=== PATIENT | male | born 1950 | race Caucasian/White ===

== ENCOUNTER 2016-09-25 14:11 | Emergency (ER) | payer OTHER, MEDICARE ==
[2016-09-25 16:27] LABS: BASOPHILS 0.5 % (0-2); EOSINOPHILS 6.9 % (0-7); HEMOGLOBIN 9.2 g/dL (13.5-17.5); IMMATURE GRANULOCYTES 0.2 % (0-5); LYMPHOCYTES 21.1 % (15-50); MCH 29.4 pg (26.0-34.0); MCHC 30.7 g/dL (31.0-37.0); MCV 95.8 fL (80.0-100.0); MEAN PLATELET VOLUME 12.1 fL (7.4-10.4); MONOCYTES 13.6 % (2-11); NEUTROPHILS 57.7 % (40-80); RBC 3.13 10x6/uL (4.20-6.10); RDW 16.8 % (11.5-14.5); WBC 9.2 10x3/uL (4.8-10.8)
[2016-09-25 16:28] LABS: PLATELET COUNT 258 10x3/uL (130-400)
[2016-09-25 17:27] LABS: ANION GAP 8.5 mmol/L (8-16); BILIRUBIN - TOTAL 0.62 mg/dL (0.2-1.3); CALCIUM 9.3 mg/dL (8.5-10.1); CARBON DIOXIDE 27.9 mmol/L (21.0-32.0); CREATININE - SERUM 1.3 mg/dL (0.6-1.3); POTASSIUM - SERUM 4.4 mmol/L (3.5-5.1); PROTEIN - SERUM 6.5 g/dL (6.4-8.2)
[2016-09-25 17:31] LABS: TROPONIN-I 0.034 ng/mL (0.000-0.060)
== END 2016-09-25 18:05 | disposition home or self-care (01) ==
LOC: D.ER 14:11
PROVIDERS: Nurse Practitioner Family
DX: R00.1 Bradycardia, unspecified (principal); S00.93XA Contusion of unspecified part of head, initial encounter; W06.XXXA Fall from bed, initial encounter; Y93.89 Activity, other specified; Y92.89 Other specified places as the place of occurrence of the external cause; F31.89 Other bipolar disorder; E11.9 Type 2 diabetes mellitus without complications

== ENCOUNTER 2016-12-03 00:30 | Inpatient (IN) | payer OTHER, MEDICARE ==
[2016-12-03] VITALS (14 sets, daily range): BP systolic 127–170; BP diastolic 63–86; BMI 29.9; BMI 29.8
[~2016-12-03] VITALS: Ht 182.9 cm; Wt 125.9 kg
--- NOTE | ~2016-12-03 | HEMODYNAMI ---
PATIENT:TYLOR PARKER MEDICAL RECORD: [id number] : 46 LOCATION:[facility] D.2310 [facility]# [id number] ADMISSION DATE: 12/03/16 Generatedon:12/13/201613:20 Patient name: TYLOR PARKER Patient #: [id number] SSN: : [id number] Date of study: 12/13/2016 Page: Of Hemodynamic Procedure Report Patient Data Patient Demographics Procedure consent was obtained First Name: TYLOR Gender: Male Last Name: KEITH : 1950 Patient #: [id number] Age: 66 year(s) Race: Unknown Additional ID: [id number] Contact details [address]: [address] [place] [address] State: [place] City: [place] Zip code: [address] Past Medical History Allergies: No known allergies Admission Admission Data Admission Date: 12/03/2016 Admission Time: 2:43 Room #: D.2310 Lab Results Lab Result Date: 12/13/2016 Lab Result Time: 0:00 Biochemistry Name Units Result Min Max BUN mg/dl 46 --(----)-* 7 18 Creatinine mg/dl 0.9 --(-*--)-- 0.6 1.3 CBC Name Units Result Min Max Hemoglobin g/dl 10.1 *-(----)-- 13.5 17.5 Coagulation Name Units Result Min Max INR units 1.24 --(----)*- 0.85 1.17 PT sec 15.5 --(----)*- 11.6 15 Procedure Procedure Types Cath Procedure Diagnostic Procedure LHC LHC w/Coronaries w/Grafts PCI Procedure Coronary Stent Initial Miscellaneous Procedures Moderate Sedation up to 30 minutes Procedure Description Procedure Date Procedure Date: 12/13/2016 Procedure Start Time: 12:48 Procedure End Time: 13:19 Procedure Staff Name Function Anton Haynes MD Performing Physician Reba Gaston RT Scrub Yan Burgos RN Nurse Breezy Hernandez RT Monitor John Salmeron RT Head Pumper Procedure Data Cath Procedure Fluoroscopy Diagnostic fluoroscopy Total fluoroscopy Time: 8.8 time: 8.8 min min Diagnostic fluoroscopy Total fluoroscopy dose: 654 dose: 654 mGy mGy Contrast Material Contrast Material Type Amount (ml) Isovue 300 156 Entry Location Entry Primary Successful Side Size Upsize Upsize Entry Closure Succes sful Closure Location (Fr) 1 (Fr) 2 (Fr) Remarks Device Remarks Femoral Right 5 Fr 6 Fr Exoseal artery Short Diagnostic catheters Device Type Used For End Catheter Placement Cordis 5Fr Pigtail LV Angiography Catheter (MP) Diagnostic Infinity 5Fr Left Coronary JL 5 catheter Angiography Cordis 5Fr 3DRC Catheter Right Coronary (MP) Angiography Diagnostic Infinity 5Fr SVG Angiography AR 2 MOD catheter Procedure Complications No complications Procedure Medications Medication Administration Route Dosage Oxygen Lidocaine 2% added to field 20 Heparin Flush Bag added to field 2 bags (1000units/500ml NS) 0.9% NaCl I.V. 75 ml/hr Diprivan 1% I.V. 38 mcg/kg/min (Propofol) Heparin Bolus I.V. 4000 units Integrilin (Bolus I.V. 8.5 ml 2mg/ml) Plavix 600 mg Hemodynamics Rest HGB: 10.1 (g/dl) Heart Rate: 62 (bpm) Snapshots Pre Cath Intra NCS Post Cath Vital Signs Time Heart Resp SPO2 NIBP (mmHg) Rhythm Pain Sedation Rate (ipm) (%) Status Level (bpm) 12:35:57 58 12 100 133/70(107) NSR 0 (11) 3(A) , No pain 12:40:13 62 12 100 125/70(101) NSR 0 (11) 3(A) , No pain 12:44:31 56 12 100 113/63(90) NSR 0 (11) 3(A) , No pain 12:48:47 62 11 100 130/71(105) NSR 0 (11) 3(A) , No pain 12:53:07 61 12 100 132/73(102) NSR 0 (11) 3(A) , No pain 12:57:28 63 11 100 134/69(111) NSR 0 (11) 3(A) , No pain 13:01:50 56 12 100 122/63(104) NSR 0 (11) 3(A) , No pain 13:06:10 62 11 98 119/60(86) NSR 0 (11) 3(A) , No pain 13:10:28 58 11 98 120/68(93) NSR 0 (11) 3(A) , No pain 13:14:44 56 12 99 124/69(101) NSR 0 (11) 3(A) , No pain 13:19:06 57 13 98 124/64(100) NSR 0 (11) 3(A) , No pain Medications Time Medication Route Dose Verified Delivered Reason Notes Effectiveness by by 12:39:42 Oxygen ventilator intubated Anton Heredia unresponsive per RT Dallas Burgos RN 12:39:50 Lidocaine 2% added to 20ml vial Anton Anton used for field Dallas Haynes MD procedure 12:39:56 Heparin Flush added to 2 bags Anton Walton used for Bag field Dallas Haynes MD procedure (1000units/500ml NS) 12:40:06 0.9% NaCl I.V. 75 ml/hr Anton Heredia Per physician Dallas Burgos RN 12:40:46 Diprivan 1% I.V. 38 Anton Heredia for sedation (Propofol) mcg/kg/min Dallas Burgos RN 12:58:18 Heparin Bolus I.V. 4000 units Anton Heredia for verified Dallas Burgos RN anticoagulation with dr haynes 13:00:29 Integrilin I.V. 8.5 ml Anton Heredia for wasted (Bolus 2mg/ml) Dallas Burgos RN antiplatelet 1.5 ml therapy of vial 13:17:40 Plavix via ngtube 600 mg Anton Heredia for Dallas Burgos RN antiplatelet therapy Procedure Log Time Note 11:53:59 ACC Patient presents with Unstable Angina CCS Anginal Class 3--Marked limitation of physical activity, angina occurs with ordinary activity.. 11:54:01 Diagnostic Cath status Urgent 11:54:21 Breezy Hernandez RT(R) sent for patient. Start room use. 11:54:22 Time tracking: Regular hours 11:54:27 Plan of Care:Hemodynamics will remain stable., Cardiac rhythm will remain stable., Comfort level will be maintained., Respiratory function will remain adequate., Patient/ family verbilizes understanding of procedure., Procedure tolerated without complication., Recovers from procedure without complications.. 12:34:37 Patient received from ICU to CCL 3 Alert and oriented. Tansferred to table in Supine position. 12:34:39 Warm blankets applied, and kody hugger turned on for patient comfort. 12:34:39 Correct patient and procedure confirmed by team. 12:34:40 Signed procedure consent form obtained from spouse. 12:34:41 ECG and BP/O2 sat monitors applied to patient. 12:34:41 Vital chart was started 12:34:42 Baseline sample Acquired. 12:34:45 Rhythm: sinus rhythm 12:34:46 Full Disclosure recording started 12:34:50 H&P Date Dictated: 12/13/2016 Within 30 days and on chart.. 12:34:51 Pre-procedure instructions explained to patient. 12:34:51 Pre-op teaching completed and patient verbalized understanding. 12:34:54 Family in waiting room. 12:34:55 Patient NPO since Midnight. 12:35:09 Patient allergic to No known allergies 12:35:15 Is the patient allergic to Iodine/contrast media? No. 12:35:36 Is patient on blood thinner?No 12:35:39 Patient diabetic? Unknown. 12:35:41 ----Pre-sedation anethsthesia assessment.---- 12:36:23 PRE SEDATION ANETHSTHESIA ASSESSMENT PT IS ON A VENT AND SEDATED 12:36:27 Pre procedure: right dorsailis pedis pulse 1+ Palpable, but thready & weak; easily obliterated 12:36:37 Patient pain scale 0/10 UNKNOWN. 12:36:45 IV patent on arrival in Lt subclavian with 0.9% NaCl at 10ml/hr. 12:39:33 Lab Result : BUN 46 mg/dl 12:39:33 Lab Result : Creatinine 0.9 mg/dl 12:39:33 Lab Result : Hemoglobin 10.1 g/dl 12:39:33 Lab Result : PT 15.5 sec 12:39:33 Lab Result : INR 1.24 units 12:39:36 Lab results completed and on chart. 12:39:39 Right groin area was prepped with chlora-prep and draped in sterile fashion 12:39:40 Alarms reviewed by R. N. 12:39:40 Sharps counted by scrub and verified by R.N. 12:39:42 Oxygen intubated ventilator per RT was administered by Yan Burgos RN; unresponsive; 12:39:50 Lidocaine 2% 20ml vial added to field was administered by Anton Haynes MD; used for procedure; 12:39:56 Heparin Flush Bag (1000units/500ml NS) 2 bags added to field was administered by Anton Haynes MD; used for procedure; 12:40:06 0.9% NaCl 75 ml/hr I.V. was administered by Yan Burgos RN; Per physician; 12:40:46 Diprivan 1% (Propofol) 38 mcg/kg/min I.V. was administered by Yan Burgos RN; for sedation; 12:40:51 Physician paged 12:47:07 --------ALL STOP TIME OUT------ 12:47:08 Final Timeout: patient, procedure, and site verified with staff and physician. All members of the team are in agreement. 12:47:09 Right groin site verified by team. 12:47:20 Physical assessment completed. ASA score P 3 - A patient with severe systemic disease as per Anton Haynes MD. 12:47:41 Sedation plan: IV Moderate Sedation Propofol 12:47:50 PT IS SEDATED 12:47:55 Use device set Femoral Dx 12:47:56 Acist Syringe opened to sterile field. 12:47:56 Bag Decanter opened to sterile field. 12:47:56 Medline Cath Pack opened to sterile field. 12:47:57 Terumo 5Fr [place] Sheath opened to sterile field. 12:47:57 St Kade 260cm J .035 wire opened to sterile field. 12:47:58 Acist Hand Control opened to sterile field. 12:47:59 Acist Manifold opened to sterile field. 12:47:59 Diagnostic Infinity 5Fr Multipack catheter opened to sterile field. 12:47:59 Tegaderm 4 x 4 opened to sterile field. 12:48:19 Procedure started. 12:48:23 Local anesthetic to right femoral artery with Lidocaine 2% by Anton Haynes MD.INITIAL ACCESS ONLY 12:48:34 A 5 Fr sheath was inserted into the Right Femoral artery 12:48:37 Zero performed for pressure channel P1 12:48:54 A Cordis 5Fr Pigtail Catheter (MP) was advanced over the wire and used for LV Angiography. 12:48:57 LV angiography performed. 12:48:58 LV gram done using UGARTE 12:49:03 EF : 30 % 12:49:04 Catheter removed. 12:49:12 A Diagnostic Infinity 5Fr JL 5 catheter was advanced over the wire and used for Left Coronary Angiography. 12:49:15 LCA angiography performed. 12:49:16 Catheter removed. 12:49:47 A Cordis 5Fr 3DRC Catheter (MP) was advanced over the wire and used for Right Coronary Angiography. 12:49:54 BERGERON to LAD angiography performed. 12:50:13 [place] BasixCompak Inflation Kit opened to sterile field. 12:50:13 Cordero Broad Instituteisper J 300cm 0.014 guide wire opened to sterile field. 12:50:13 Terumo 6Fr [place] Sheath opened to sterile field. 12:53:17 RCA angiography performed. 12:53:18 Catheter removed. 12:53:43 Sheath upsized to a 6 Fr Short. 12:53:50 A Diagnostic Infinity 5Fr AR 2 MOD catheter was advanced over the wire and used for SVG Angiography. 12:54:24 SVG to RCA angiography performed. 12:55:31 SVG to Circ angiography performed. 12:56:16 Catheter removed. 12:56:26 Cordis 6FR XBLAD 3.5 guide catheter opened to sterile field. 12:58:18 Heparin Bolus 4000 units I.V. was administered by Yan Burgos RN; for anticoagulation; verified with dr haynes 12:58:25 6 Fr XBLAD 3.5 guide catheter was inserted over the wire 12:58:41 WHISPER wire advanced. 12:58:48 Study PCI Site: Marshall mLAD has 90% stenosis. 12:58:53 Study PCI Site: [place] Diag1 has 90% stenosis. 13:00:29 Integrilin (Bolus 2mg/ml) 8.5 ml I.V. was administered by Yan Burgos RN; for antiplatelet therapy; wasted 1.5 ml of vial 13:03:07 Inflation number: 5 A [place]ade [place] 2.0 X 20 balloon was prepped and advanced across the 1st Diag, then inflated to 13 DWIGHT for 0:12 (min:sec). 13:03:33 Inflation number: 4 The Hildebran Sci [place] 2.0 X 20 balloon was reinflated across the 1st Diag, to 17 DWIGHT for 0:18 (min:sec). 13:05:27 Inflation number: 3 The Hildebran Sci [place] 2.0 X 20 balloon was reinflated across the 1st Diag, to 17 DWIGHT for 0:30 (min:sec). 13:05:30 Balloon removed over the wire. 13:06:34 Inflation Number: 2 A Eugene OTW 2.25 x 18 stent was prepped and advanced across the 1st Diag. The stent was deployed at 13 DWIGHT for 0:10 (min:sec). 13:07:25 Inflation number: 1 The stent balloon was then re-inflated across the 1st Diag to 0 DWIGHT for 0:00 (min:sec). 13:08:18 Stent catheter was removed intact over wire. 13:08:19 Wire removed. 13:08:19 Guide catheter removed. 13:08:27 Contrast amount:Isovue 300 156ml. 13:08:34 Sheath removed intact; hemostasis achieved with Exoseal to the Right Femoral artery. 13:08:36 Procedure ended.(Physican Out) 13:09:54 Fluoroscopy time 08.80 minutes. 13:10:02 Fluoroscopy dose: 654 mGy 13:10:02 Flurop Dose total: 654 13:10:03 Sharps counted by scrub and verified by R.N. 13:10:04 Insertion/operative site no bleeding no hematoma. 13:10:07 Post-op/insertion site Right Femoral artery dressed using a 4 x 4 and Tegaderm. 13:10:10 Post right femoral artery:stable 13:10:11 Post Procedure Pulses reassessed and unchanged 13:10:13 Post procedure: right dorsailis pedis pulse 1+ Palpable, but thready & weak; easily obliterated. 13:10:16 Post procedure rhythm: sinus rhythm 13:10:18 Post procedure instruction explained to patient.Patient verbalizes understanding. 13:10:57 Procedure type changed to Cath procedure, Diagnostic procedure, LHC, LHC w/Coronaries w/Grafts, PCI procedure, Coronary Stent Initial, Miscellaneous Procedures, Moderate Sedation up to 30 minutes 13:11:17 Cordis 6Fr Exoseal opened to sterile field. 13:11:22 Procedure and supply charges have been captured, reviewed, submitted and are correct. 13:16:30 Procedure Complication : No complications 13:17:40 Plavix 600 mg via ngtube was administered by Yan Burgos RN; for antiplatelet therapy; 13:19:39 Vital chart was stopped 13:19:44 See physician's report for complete and final results. 13:19:54 Report given to ICU. 13:19:57 Patient transfered to ICU with Bed. 13:19:59 Procedure ended. 13:19:59 Full Disclosure recording stopped 13:20:12 ACC-PCI Only Patient was given prescriptions, or instructed by Anton Haynes MD to start/continue the following medications upon discharge: Plavix 13:20:14 End room use (Document Last) Intervention Summary Intervention Notes Time ActionType Lesion and Equipment Action# Pressure Duration Attributes Used 13:03:07 Inflate 1st Diag Hildebran 5 13 00:12 balloon Sci [place] 2.0 X 20 balloon 13:03:33 Reinflate 1st Diag Hildebran 4 17 00:18 balloon Sci [place] 2.0 X 20 balloon 13:05:27 Reinflate 1st Diag Hildebran 3 17 00:30 balloon Sci [place] 2.0 X 20 balloon 13:06:34 Place stent 1st Diag Rembrandt OTW 2 13 00:10 2.25 x 18 stent 13:07:25 Reinflate 1st Diag Eugene OTW 1 0 00:00 stent 2.25 x 18 balloon stent Device Usage Item Name Manufacture Quantity Catalog Number Hospital Part Current Mini mal Lot# / Charge Number Stock Stock Serial# Code Acist Acist 1 16828 027554 144448 155826 20 Syringe Medical Systems Inc Bag Microtek 1 2002S 275586 28482 268191 5 INetU Managed Hosting. Medline Cardinal 1 [id number] 651662 65405 447216 5 NanoConversion Technologies Terumo 5Fr Terumo 1 [id number] 278422 237591 603325 [address] Kade 1 318584 689068 081975 726864 30 260cm J .035 wire Acist Hand Acist 1 34764 120371 051445 560526 5 Crushpath [employer] Inc Acist Acist 1 10064 907213 309084 296456 5 Data TV Networks Medical Systems Inc Diagnostic Cardinal 1 [id number] 462602 05555 300025 30 Infinity Health 5Fr Multipack catheter Tegaderm 4 3M 1 1626W 250581 725670 742257 5 x 4 Cordis 5Fr Cardinal 1 712269 5 Pigtail Health Catheter (MP) Diagnostic Cardinal 1 [id number] 598616 374268 668735 5 Infinity Health 5Fr JL 5 catheter Cordis 5Fr Cardinal 1 266024 5 3DRC Health Catheter (MP) Merit Merit 1 BF1524 266487 872614 720614 15 BasixVolo Broadband Medical Inflation Kit Cordero Cordero 1 [id number] 470669 798892 026359 5 Whisper J Vascular 300cm 0.014 guide wire Terumo 6Fr Terumo 1 [id number] 288043 368729 535710 40 [place] Sheath Diagnostic Cardinal 1 548215Q 999748 077387 289213 20 Infinity Health 5Fr AR 2 MOD catheter Cordis 6FR Cardinal 1 13362330 349031 445701 691061 10 XBLAD 3.5 Health guide catheter Hildebran Sci Hildebran 1 [id number] 211459 057773 608634 1 [id number] The ADEX 2.0 X 20 balloon Rembrandt OTW Medtronic 1 [id number] 597931 17192 723255 5 [id number] 2.25 x 18 stent Cordis 6Fr Cardinal 1 EX600 876187 575587 835347 10 [facility] Basis Science Signature Audit [place] Stage Time Signature Unsigned Intra-Procedure 12/13/2016 Breezy Hernandez 1:20:40 PM RT(R) Signatures Monitor : Breezy Hernandez RT Signature : Date : Time : [facility] [address] [place] [address]
[~2016-12-03 00:30] MED LIST: ASPIRIN81 MG PO; COZAAR100 MG PO; KLONOPIN1 MG; LITHIUM CARBON300 MG PO; PLAVIX75 MG PO
[2016-12-03 01:03] LABS: BASOPHILS 0.4 % (0-2); EOSINOPHILS 2.5 % (0-7); HEMATOCRIT 26.2 % (42.0-54.0); IMMATURE GRANULOCYTES 0.3 % (0-5); LYMPHOCYTES 8.9 % (15-50); MCH 28.2 pg (26.0-34.0); MCHC 30.5 g/dL (31.0-37.0); MCV 92.3 fL (80.0-100.0); MEAN PLATELET VOLUME 11.5 fL (7.4-10.4); MONOCYTES 7.7 % (2-11); NEUTROPHILS 80.2 % (40-80); PLATELET COUNT 288 10x3/uL (130-400); RBC 2.84 10x6/uL (4.20-6.10); RDW 17.4 % (11.5-14.5); WBC 10.4 10x3/uL (4.8-10.8)
[2016-12-03 01:15] LABS: ALBUMIN 3.4 g/dL (3.4-5.0); ALKALINE PHOSPHATASE 106 U/L (46-116); ALT (SGPT) 20 U/L (10-68); CALC OSMOLALITY 281 mosm/kg (275-300); CALCIUM 9.4 mg/dL (8.5-10.1); CARBON DIOXIDE 22.1 mmol/L (21.0-32.0); CHLORIDE - SERUM 106 mmol/L (98-107); CREATININE - SERUM 1.1 mg/dL (0.6-1.3); GLUCOSE 115 mg/dL (74-106); POTASSIUM - SERUM 4.1 mmol/L (3.5-5.1); PROTEIN - SERUM 7.3 g/dL (6.4-8.2); SODIUM 140 mmol/L (136-145); UREA NITROGEN 18 mg/dL (7-18); eGFR NON AFRICAN AMERICAN 71 mL/min (90-120)
[2016-12-03 01:26] LABS: CHOL - HDL RATIO 3.1 ratio (2.3-4.9); CHOLESTEROL, TOTAL 206 mg/dL (0-200); CKMB 1.6 U/L (0.0-3.6); CREATINE KINASE 113 UL (21-232); HDL CHOLESTEROL 67 mg/dL (32-96); LDL CHOLESTEROL 116 mg/dL (0-100); LDL-HDL RATIO 1.7 ratio (1.5-3.5); PRO BNP 601 pg/mL (0-125); TRIGLYCERIDE 115 mg/dL (30-200); TROPONIN-I < 0.017 ng/mL (0.000-0.060)
[2016-12-03 02:25] LABS: APPEARANCE CLEAR (CLEAR); BILIRUBIN NEGATIVE (NEGATIVE); COLOR YELLOW (YELLOW); GLUCOSE NEGATIVE (NEGATIVE); KETONE NEGATIVE (NEGATIVE); LEUKOCYTE ESTERASE NEGATIVE (NEGATIVE); NITRITE NEGATIVE (NEGATIVE); PROTEIN NEGATIVE (NEGATIVE); SPECIFIC GRAVITY 1.015 (1.005-1.020); UROBILINOGEN NORMAL (NORMAL)
--- NOTE | 2016-12-03 03:19 | NUR ---
REPORT RECEIVED FROM JULIETH HOUSER
[2016-12-03 03:24] LABS: TROPONIN-I 0.134 ng/mL (0.000-0.060)
[2016-12-03] MEDS ORDERED: NITROSTAT0.4 MG SL (03:31)
--- NOTE | 2016-12-03 03:36 | NUR ---
ARRIVED TO FLOOR VIA WHEELCHAIR, ACCOMPANIED BY HOSPITAL STAFF. ORIENTED TO UNIT AND PLACED ON TELEMETRY. CALL LIGHT IN REACH. SEE NURSE ASSESSMENT. WILL CONTINUE TO MONITOR.
[2016-12-03] MEDS ORDERED: TRAZODONE HCL300 MG PO (05:01)
[2016-12-03] MEDS ORDERED: MELATONIN 3 MG1 TAB PO (05:11)
--- NOTE | 2016-12-03 07:38 | NUR ---
ASSESSMENT DONE. DENIES NEEDS.
--- NOTE | 2016-12-03 07:58 | NUR ---
RESP UL ON . STEPHANY NEEDS AT THIS TIME. CALL LIGHT IN REACH. WILL MONITOR.
[2016-12-03 09:31] LABS: BASOPHILS 0.4 % (0-2); EOSINOPHILS 1.7 % (0-7); HEMATOCRIT 27.9 % (42.0-54.0); HEMOGLOBIN 8.4 g/dL (13.5-17.5); IMMATURE GRANULOCYTES 0.2 % (0-5); LYMPHOCYTES 11.5 % (15-50); MCH 28.2 pg (26.0-34.0); MCHC 30.1 g/dL (31.0-37.0); MCV 93.6 fL (80.0-100.0); MEAN PLATELET VOLUME 11.8 fL (7.4-10.4); MONOCYTES 8.4 % (2-11); NEUTROPHILS 77.8 % (40-80); PLATELET COUNT 284 10x3/uL (130-400); RBC 2.98 10x6/uL (4.20-6.10); RDW 17.6 % (11.5-14.5); WBC 12.2 10x3/uL (4.8-10.8)
[2016-12-03 10:00] LABS: CALC OSMOLALITY 283 mosm/kg (275-300); CALCIUM 9.4 mg/dL (8.5-10.1); CARBON DIOXIDE 25.1 mmol/L (21.0-32.0); CHLORIDE - SERUM 105 mmol/L (98-107); CREATININE - SERUM 1.2 mg/dL (0.6-1.3); GLUCOSE 136 mg/dL (74-106); POTASSIUM - SERUM 4.4 mmol/L (3.5-5.1); SODIUM 140 mmol/L (136-145); UREA NITROGEN 20 mg/dL (7-18); eGFR NON AFRICAN AMERICAN 64 mL/min (90-120)
[2016-12-03 10:01] LABS: CREATINE KINASE 324 UL (21-232)
[2016-12-03 10:05] LABS: CKMB 45.1 U/L (0.0-3.6)
[2016-12-03 15:47] LABS: CREATINE KINASE 375 UL (21-232)
[2016-12-03 15:48] LABS: TROPONIN-I 8.427 ng/mL (0.000-0.060)
[2016-12-03 15:55] LABS: CKMB 51.6 U/L (0.0-3.6)
--- NOTE | 2016-12-03 18:38 | NUR ---
WITHOUT CHANGES NOTED AT THIS TIME.
--- NOTE | 2016-12-03 19:35 | NUR ---
UPON ENTERING ROOM, PT IS C/O SUBSTERNAL CHEST PAIN, RATES @ 10/10 ON PAIN SCALE. PT IS EXTREMELY DIAPHORETIC AND DUSKY. O2 SATS 65% ON 5LPM NC. RAPID RESPONSE CALLED AT 1940. DR HICKMAN ON THE FLOOR AND NOTIFIED OF PT'S CHANGE INCONDITION. ORDER RECEIVED TO TRANSFER PT TO CVICU @ 1950. PT TRANSFER TO CVICU VIA BED AND REPORT GIVEN TO MIK PERRY AT THE BEDSIDE. 2009 - SPOKE WITH LARA RENEE, PT'S SISTER. EXPLAINED PT'S CHANGE IN CONDITION AND THE TRANSFER INTO CVICU. SISTER WAS VERY APPRECIATIVE AND REQUESTED THAT STAFF CALL HER WITH ANY FURTHER CHANGES. REASSURED HER THAT WE WOULD CALL HER WITH ANY FURTHER CHANGE INCONDITION. SPOKE WITH MIK EMERSON IN ICU AND UPDATED THAT I HAD SPOKE WITH FAMILY.
[2016-12-03 20:25] LABS: BASOPHILS 0.2 % (0-2); EOSINOPHILS 0.2 % (0-7); HEMATOCRIT 34.9 % (42.0-54.0); HEMOGLOBIN 10.9 g/dL (13.5-17.5); IMMATURE GRANULOCYTES 0.4 % (0-5); MCH 28.9 pg (26.0-34.0); MCHC 31.2 g/dL (31.0-37.0); MCV 92.6 fL (80.0-100.0); MEAN PLATELET VOLUME 12.3 fL (7.4-10.4); NEUTROPHILS 87.2 % (40-80); PLATELET COUNT 282 10x3/uL (130-400); RBC 3.77 10x6/uL (4.20-6.10); RDW 17.6 % (11.5-14.5); WBC 19.6 10x3/uL (4.8-10.8)
[2016-12-03 21:01] LABS: CKMB 32.6 U/L (0.0-3.6); CREATINE KINASE 292 UL (21-232)
[2016-12-03 21:02] LABS: TROPONIN-I 2.822 ng/mL (0.000-0.060)
--- NOTE | 2016-12-03 21:08 | NUR ---
1999 PT ARRIVED TO UNIT VIA BED WITH HOSPITAL STAFF. DR HICKMAN IN ROOM, GAVE ORDERS FOR 80MG LASIX STAT, NITRO DRIP STAT @ 5 AND TITRATE UP TO 10. PT ARRIVED WITH SPO2 AT 84% ON 100% NRB. PPP. CAP REFIL <3 SECONDS. S1S2 AUSCULTATED. DENIES PAIN/NEEDS ATT. BS ACTIVE X4. LUNG SOUNDS WET-CRACKLES THROUGHOUT-SHALLOW. DR HICKMAN WANTS ABG'S AT 2100, RT NOTIFIED. ALL OTHER VSS, WILL CPOC AND MONITOR CLOSELY IN ICU.
--- NOTE | 2016-12-03 21:12 | NUR ---
TRIED 3 TIMES FOR NEW IV OLD IV IN LEFT WRIST WOULD NOT FLUSH, WAS ABLE TO GET NEW IV IN LEFT AC WITH 22G, STARTED NITRO DRIP AND GAVE LASIX PER DR HICKMAN ORDERS. GAVE PM MEDS PER JUL AND PT TOLERATED WELL. DENIES ANY OTHER PAIN/NEEDS ATT. VSS, SPO2 @ 96% ON 100% NRB. WILL CONTINUE CPOC.
--- NOTE | 2016-12-03 21:31 | NUR ---
[address]19 CALL[address] RESULTS FOR DR HICKMAN, RECIEVED MORE ORDERS, WILL CPOC.
--- NOTE | 2016-12-03 22:27 | NUR ---
PAGED AND TALKED TO DR HICKMAN, NOTIFIED HIM PT HAS NOT VOIDED, THAT PT SLEEPING AND IS COMFORTABLE. HE SAID WE WILL "JUST STICK IT OUT". PT RESTING COMFORTABLEY ATT, VSS. WILL CPOC.
--- NOTE | 2016-12-03 23:00 | NUR ---
REASSESSMENT COMPLETE, PLEASE SEE FLOW SHEETS FOR DETAILS. RESTING, AND WOKE EASILY. DENIES ANY PAIN/NEEDS ATT. STATES HE IS "FEELING MUCH BETTER". HE DID URINATE IN URINAL, APPROX 400ML AT 2200. VSS AT. WILL CPOC.
[2016-12-04] VITALS (31 sets, daily range): BP systolic 100–141; BP diastolic 50–74
--- NOTE | 2016-12-04 01:00 | NUR ---
RESTING COMFORTABLY, VSS, BED LOW AND LOCKED, CALL LIGHT IN REACH. WILL CPOC.
--- NOTE | 2016-12-04 02:50 | NUR ---
C/O PAIN, WILL GIVE PAIN MEDS PER ORDERS.
[2016-12-04 03:08] LABS: BASOPHILS 0 % (0-2); EOSINOPHILS 0 % (0-7); HEMATOCRIT 37.1 % (42.0-54.0); HEMOGLOBIN 11.5 g/dL (13.5-17.5); IMMATURE GRANULOCYTES 0.5 % (0-5); LYMPHOCYTES 3.5 % (15-50); MCH 28.9 pg (26.0-34.0); MCV 93.2 fL (80.0-100.0); MEAN PLATELET VOLUME 11.9 fL (7.4-10.4); MONOCYTES 5.1 % (2-11); NEUTROPHILS 90.9 % (40-80); PLATELET COUNT 300 10x3/uL (130-400); RBC 3.98 10x6/uL (4.20-6.10); RDW 17.9 % (11.5-14.5); WBC 21.2 10x3/uL (4.8-10.8)
--- NOTE | 2016-12-04 03:23 | NUR ---
REASSESSMENT COMPLETE, PLEASE SEE FLOW SHEETS FOR DETAILS. RR LABORED, DYSPNEA NOTED, SOB, SHALLOW BREATHS, DIMINIGHED IN LLL, RLL, RML - CRACKLES AND RHALES THROUGHOUT. ORDERED STAT ABG'S, PT C/O CHEST AND BACK PAIN, PT STATES HE IS "NOT DOING TOO WELL", BUT ALSO STATES THAT MORPHINE HAS HELPED. S1S2 AUSCULTATED, NSR NOTED.
--- NOTE | 2016-12-04 03:29 | NUR ---
TAKED TO DR HICKMAN, INFORMED HIM OF PT STATUS, SUGGESTED BIPAP, HE WANTS DR LYLES CONSULTED AND NUMBERS RUN BY HIM AND GET HIS OPINION.
[2016-12-04 03:33] LABS: ALBUMIN 3.3 g/dL (3.4-5.0); ALKALINE PHOSPHATASE 115 U/L (46-116); ALT (SGPT) 24 U/L (10-68); BILIRUBIN - TOTAL 0.85 mg/dL (0.2-1.3); CALCIUM 9.2 mg/dL (8.5-10.1); CHLORIDE - SERUM 107 mmol/L (98-107); CKMB 180.2 U/L (0.0-3.6); GLUCOSE 178 mg/dL (74-106); POTASSIUM - SERUM 4.7 mmol/L (3.5-5.1); PROTEIN - SERUM 7.2 g/dL (6.4-8.2); SODIUM 142 mmol/L (136-145)
[2016-12-04 03:34] LABS: CALC OSMOLALITY 291 mosm/kg (275-300); CREATININE - SERUM 1.6 mg/dL (0.6-1.3); UREA NITROGEN 27 mg/dL (7-18); eGFR NON AFRICAN AMERICAN 46 mL/min (90-120)
--- NOTE | 2016-12-04 03:34 | NUR ---
PAGED DR LYLES.
[2016-12-04 03:35] LABS: CREATINE KINASE 785 UL (21-232); TROPONIN-I 18.008 ng/mL (0.000-0.060)
--- NOTE | 2016-12-04 03:43 | NUR ---
SPOKE WITH DR LYLES, HE ORDERED 80MG LASIX, START BIPAP AND INTUBATE IF NECESSARY, AND GET A CXR.
--- NOTE | 2016-12-04 03:58 | NUR ---
BIPAP ON, WILL MONITOR TO ASSESS EFFECTIVENESS. RR ELEVATED. WILL CPOC.
--- NOTE | 2016-12-04 05:00 | NUR ---
STATUS IMPROVED WITH BIPAP. VSS ATT, BED LOW AND LOCKED, CALL LIGHT IN REACH. WILL CPOC.
--- NOTE | 2016-12-04 08:00 | NUR ---
18 FR DANIELLE CATH PLACED FOR ACCURATE I&O. IMMEDIATE DARK YELLOW URINE RETURN. PT THEN TURNED ON RIGHT SIDE TO SLEEP. BIPAP IN PLACE.
--- NOTE | 2016-12-04 13:24 | NUR ---
PLACED BACK ON BIPAP TO REST.
--- NOTE | 2016-12-04 14:46 | NUR ---
BREAK GIVEN FROM BIPAP. PLACED BACK ON OXYMIZER.
--- NOTE | 2016-12-04 16:16 | NUR ---
MIDLINE IV BEING PLACED PER MARILIA HOUSER.
--- NOTE | 2016-12-04 16:36 | NUR ---
DR. SINGH NOTIFIED OF MIDLINE CATH IN PLACE. DR. HICKMAN PAGED ABOUT NITRO DRIP.
--- NOTE | 2016-12-04 16:46 | NUR ---
DR. HICKMAN STATES NITRO MAY BE DC'D.
--- NOTE | 2016-12-04 19:15 | NUR ---
REPORT RECIVED, INITIAL ASSESSMENT COMPLETE, PLEASE SEE FLOW SHEETS FOR DETAILS. LUNG SOUNDS WITH CRACKLES/RHALES THROUGHOUT LOBES, SLIGHTLY DIMINISHED IN LOWER LOBES. ON BIPAP @ 80%, TOLERATES WELL WITH SPO2 @ 93%. S1S2 AUSCULTATED WITH NSR NOTED ON MONITOR. PPP. BS ACTIVE X4. PITTING EDEMA NOTED FROM LEFT FOREARM TO FINGER TIPS. D/C'D PIV FROM LEFT WRIST AND FROM LEFT A/C. WRAPPED ARM IN WARM BLANKET AND ELEVATED ON PILLOW. C/O BEING COLD, PROVIDED WARM BLANKET FOR BODY WELL. PUPILS EQUAL AND REACTIVE TO LIGHT. SIPS OF WATER GIVEN AND ORAL CARE PROVIDED, PATIENT WAS VERY HAPPY TO HAVE THIS DONE. DANIELLE IN PLACE AND DRAINING VIA GRAVITY TO CLOSED SYSTEM BAG ATTACHED TO BED AND OFF FLOOR, CLEAR YELLOW URINE NOTED. VSS ATT, BED LOW AND LOCKED, CALL LIGHT IN REACH. BED ALARM ON. WILL CPOC.
--- NOTE | 2016-12-04 21:00 | NUR ---
PROVIDED ORAL CARE, REWRAPPED ARM IN WARM TOWEL, PT ANXIOUS, WILL GIVE ATIVAN PER ORDERS. SIPS OF WATER PROVIDED. PT TOLERATED WELL. VSS ATT, BED LOW AND LOCKED, CALL LIGHT IN REACH. WILL CPOC.
--- NOTE | 2016-12-04 22:52 | NUR ---
REASSESSMENT COMPLETE, PLEASE SEE FLOW SHEETS FOR DETAILS. ORAL CARE PROVIDED, TOOK OFF BLANKETS PT STATED HE WAS HOT, UNWRAPPED LEFT ARM FOR BREAK FROM HEAT, SWELLING REDUCED BY SMALL AMOUNT. IV INFUSING NS @ KVO WITH ABX. VSS ATT, BIPAP ON AND RUNNING. BED LOW AND LOCKED, CALL LIGHT IN REACH. WILL CPOC.
--- NOTE | 2016-12-04 23:46 | NUR ---
PT WAS ANXIOUS AND SHAKING, GAVE ATIVAN PER ORDERS. MOVED UP IN BED. PROVIDED ORAL CARE AND SIPS OF WATER. WARM BLANKET PROVIDED. LIGHTS OUT. TOELRATED ACTIVITY WELL. VSS, BED LOW AND LOCKED, CALL LIGHT IN REACH. WILL CPOC.
[2016-12-05] VITALS (12 sets, daily range): BP systolic 107–150; BP diastolic 52–78
--- NOTE | 2016-12-05 01:30 | NUR ---
SLEEPING, VSS, BED LOW AND LOCKED, CALL LIGHT IN REACH. WILL CPOC.
--- NOTE | 2016-12-05 03:30 | NUR ---
REASSESSMENT COMPLETE, PLEASE SEE FLOW SHEETS FOR DETAILS. ORAL CARE PROVIDED. PT ANXIOUS, WILL GIVE ATIVAN PER ORDERS. SIPS OF WATER PROVIDED. DENIES ANY PAIN ATT. BED LOW AND LOCKED, CALL LIGHT IN REACH. VSS, WILL CPOC.
--- NOTE | 2016-12-05 05:15 | NUR ---
SLEEPING, VSS, BED LOW AND LOCKED, CALL LIGHT IN REACH. WILL CPOC.
[2016-12-05 05:27] LABS: BASOPHILS 0 % (0-2); EOSINOPHILS 0.4 % (0-7); IMMATURE GRANULOCYTES 0.4 % (0-5); LYMPHOCYTES 2.8 % (15-50); MCH 28.8 pg (26.0-34.0); MCHC 31.4 g/dL (31.0-37.0); MCV 91.6 fL (80.0-100.0); MEAN PLATELET VOLUME 12.4 fL (7.4-10.4); MONOCYTES 5.3 % (2-11); NEUTROPHILS 91.1 % (40-80); PLATELET COUNT 273 10x3/uL (130-400); RBC 3.23 10x6/uL (4.20-6.10); RDW 17.4 % (11.5-14.5); WBC 18.1 10x3/uL (4.8-10.8)
[2016-12-05 05:32] LABS: HEMATOCRIT 29.6 % (42.0-54.0); HEMOGLOBIN 9.3 g/dL (13.5-17.5)
[2016-12-05 05:38] LABS: ANION GAP 11.5 mmol/L (8-16); CALCIUM 8.7 mg/dL (8.5-10.1); CARBON DIOXIDE 26.7 mmol/L (21.0-32.0); CREATININE - SERUM 1.8 mg/dL (0.6-1.3); POTASSIUM - SERUM 4.2 mmol/L (3.5-5.1)
--- NOTE | 2016-12-05 06:02 | NUR ---
RECIEVED FULL BED BATH AND LINEN CHANGE, TOLERATED WELL. VSS, BED LOW AND LOCKED, CALL LIGHT IN REACH. WILL CPOC.
--- NOTE | 2016-12-05 06:15 | NUR ---
LAB RESULTS REVIEWED, PAGING FINANCE ATTORNEY CARDIO.
--- NOTE | 2016-12-05 06:22 | NUR ---
DR HICKMAN CALLED BACK, GAVE UPDATE, HE SAID HE WEOULD BE UP HERE SOON TO CHECK ON HIM.
--- NOTE | 2016-12-05 09:50 | NUR ---
ORAL CARE DONE. WATER PROVIDED. PLACED ON BIPAP.
--- NOTE | 2016-12-05 12:05 | NUR ---
FAMILY AT BEDSIDE.
[2016-12-05 13:04] LABS: TROPONIN-I 27.941 ng/mL (0.000-0.060)
[2016-12-05 13:30] LABS: BASOPHILS 0.1 % (0-2); EOSINOPHILS 0.9 % (0-7); HEMATOCRIT 29.9 % (42.0-54.0); HEMOGLOBIN 9.4 g/dL (13.5-17.5); IMMATURE GRANULOCYTES 0.3 % (0-5); LYMPHOCYTES 5.8 % (15-50); MCH 28.9 pg (26.0-34.0); MCHC 31.4 g/dL (31.0-37.0); MEAN PLATELET VOLUME 12.7 fL (7.4-10.4); MONOCYTES 5.2 % (2-11); NEUTROPHILS 87.7 % (40-80); PLATELET COUNT 262 10x3/uL (130-400); RBC 3.25 10x6/uL (4.20-6.10); RDW 17.8 % (11.5-14.5); WBC 15.8 10x3/uL (4.8-10.8)
--- NOTE | 2016-12-05 13:49 | NUR ---
PT ON VAPOTHERM AT 40L 100%. ORAL CARE AND WATER PROVIDED.
--- NOTE | 2016-12-05 14:25 | NUR ---
BACK ON BIPAP.
--- NOTE | 2016-12-05 19:00 | NUR ---
REPORT RECIEVED, INITIAL ASSESSMENT COMPLETE, PLEASE SEE FLOW SHEETS FOR DETAILS. ORAL CARE PROVIDED, SIPS OF WATER PROVIDED. DENIES ANY PAIN/NEEDS ATT. BED LOW AND LOCKED, CALL LIGHT IN REACH. VSS, WILL CPOC.
--- NOTE | 2016-12-05 21:00 | NUR ---
ORAL CARE AND SIPS OF WATER PROVIDED. VSS, BED LOW AND LOCKED, CALL LIGHT IN REACH. WILL CPOC.
--- NOTE | 2016-12-05 22:53 | NUR ---
ANXIOUS, TRYING TO GET OOB, GAVE ATIVAN PER ORDERS.
--- NOTE | 2016-12-05 23:00 | NUR ---
REASSESSMENT COMPLETE, PLEASE SEE FLOW SHEETS FOR DETAILS. ORAL CARE PROVIDED. BED LOW AND LOCKED, CALL LIGHT IN REACH. WILL CPOC.
--- NOTE | 2016-12-05 23:33 | NUR ---
PATIENT WAS TRYING TO GET OOB, SAID HE WAS HAVING CHEST PAIN AND WAS VERY ANXIOUS. GAVE MORPHINE PER ORDERS.
[2016-12-06] VITALS (24 sets, daily range): BP systolic 97–156; BP diastolic 49–99
--- NOTE | 2016-12-06 00:18 | NUR ---
2340 PT TRING TO GET OOB AGAIN, RR INCREASED, DIAPHORETIC, ANXIOUS, STTEMPTED TO CALM, THIS WAS UNSUCCESSFUL. ENDED UP GOING INTO RESTRAINTS HE HWAS TRYING TO PULL OFF MASK AND GET OOB AND PULLING AT LINES AND CLOTHES. WILL GET ORDERS. BECAME UNRESPONSIVE BUT KEPT BREATHING. 2358 ZAID ABG'S SEE LABS FOR DETAILS, WILL CALL DR LYLES WITH RESULTS. [address] LYLES, HE SAID TO CALL FAMILY TO ASK PERMISION TO INTUBATE BOTH DR LYLES AND MYSELF BOTH HEARD PATIENT SAY HE DID NOT WANT TO BE INTUBATED. 0005 TRIED TWICE TO REACH SON, LEFT [facility] TO CALL BACK. 0010 SPOKE TO PT SISTER AND SHE SAID TO INTUBATE. RT NOW SETTING UP ROOM FOR INTUBATION, WILL CALL ER WHEN READY FOR INTUBATION.
--- NOTE | 2016-12-06 00:33 | NUR ---
INTUBATION SUCCESSFUL BY DR BAUM. 27CM AT LIP. 8.0 SIZE TUBE.
--- NOTE | 2016-12-06 01:46 | NUR ---
SEDATED ACCORDING TO SAS GOALS. RESTING COMFORTABLY. SPO2 94%. VENT SETTINGS FOLLOWS: O2 100%, PEPP 7.5, TV 600, RATE 20. PROPOFOL BEING TITRATED PER ORDERS AND CURRENTLY AT 25 MCG/KG/MIN. VSS ATT, BED LOW AND LOCKED, HOB AT 30 DEGREES. RESTRAINTS CHECKED AND RETIED WITH QUICK RELEASE KNOTS. WILL CPOC.
--- NOTE | 2016-12-06 03:00 | NUR ---
REASSESSMENT COMPLETE, PLEASE SEE FLOW SHEETS FOR DETAILS. ON VENT, TITRATING PROPOFOL PER ORDERS. RESTRAINTS CHECKED AND REAPPLIED USING QUICK RELEASE KNOTS. RT CHANGED POOP TO 5.0 ATT. VSS ATT, BED LOW AND LOCKED. WILL CPOC.
--- NOTE | 2016-12-06 04:30 | NUR ---
PROVIDED DANIELLE CARE ATT.
--- NOTE | 2016-12-06 04:45 | NUR ---
RT CHANGED O2 TO 85% ON VENT.
--- NOTE | 2016-12-06 05:00 | NUR ---
ORAL CARE AND TURNING PROVIDED. VSS, BED LOW AND LOCKED, CALL LIGHT IN REACH. WILL CPOC.
[2016-12-06 05:13] LABS: BASOPHILS 0.1 % (0-2); EOSINOPHILS 0.1 % (0-7); HEMATOCRIT 27.5 % (42.0-54.0); HEMOGLOBIN 8.6 g/dL (13.5-17.5); IMMATURE GRANULOCYTES 0.2 % (0-5); LYMPHOCYTES 3.1 % (15-50); MCH 29.1 pg (26.0-34.0); MCHC 31.3 g/dL (31.0-37.0); MCV 92.9 fL (80.0-100.0); MEAN PLATELET VOLUME 12.4 fL (7.4-10.4); NEUTROPHILS 91.5 % (40-80); PLATELET COUNT 257 10x3/uL (130-400); RBC 2.96 10x6/uL (4.20-6.10); RDW 17.6 % (11.5-14.5); WBC 14.7 10x3/uL (4.8-10.8)
[2016-12-06 05:24] LABS: ANION GAP 14.3 mmol/L (8-16); CALCIUM 8.6 mg/dL (8.5-10.1); CARBON DIOXIDE 23.9 mmol/L (21.0-32.0); CREATININE - SERUM 1.6 mg/dL (0.6-1.3); POTASSIUM - SERUM 4.2 mmol/L (3.5-5.1)
--- NOTE | 2016-12-06 06:04 | NUR ---
DR LYLES CALLED IN TO GET UPDATE, ONE WAS GIVEN, HE WASNT NEPHROLOGY CONSULTED ON PATIENT.
--- NOTE | 2016-12-06 07:20 | NUR ---
REPORT RECD PT CARE ASSUMED. PT IS SEDATED ON VENTILATOR. PT MOVES EXTREMITIES, RESPONSIVE TO PAIN. S1S2 NOTED, SR PER CM. ADVENTICIOUS LUNG SOUNDS BILAT. PT ON VENT A/C. PPP. SCD/DANIELLE/NGT IN PLACE. SEE SHIFT ASSESSMENT FOR FURTHER DETAIL. VSS. WILL MONITOR.
--- NOTE | 2016-12-06 09:10 | NUR ---
SPOKE WITH PT SON, UPDATE PROVIDED. SPOKE WITH FAMILY ON PHONE, UPDATE PROVIDED WELL. ORAL CARE PROVIDED, PT REPOSITIONED PER PROTOCOL. VSS. WILL MONITOR.
--- NOTE | 2016-12-06 09:54 | NUR ---
NUTRITION MONITORING & EVAL CHART REVIEWED, NURSING REPORTS PT NPO FOR POSSIBLE TABLE TENDER SLUDGE TODAY. RD FOLLOWING
--- NOTE | 2016-12-06 09:56 | NUR ---
NUTRITION MONITORING & EVAL CHART REVIEWED. NURSING REPORTS PT CURRENTLY NPO FOR OR TODAY. WILL MONITOR DIET ADVANCEMENT, PO INTAKE. RD FOLLOWING
--- NOTE | 2016-12-06 12:00 | NUR ---
PT FAMILY PROVIDED WITH UPDATE. PT REPOSITIONED PER PROTOCOL AND ORAL CARE PROVIDED.
--- NOTE | 2016-12-06 14:00 | NUR ---
NO CHANGES AT THIS TIME. VSS, WILL MONITOR.
--- NOTE | 2016-12-06 16:00 | NUR ---
PT REPOSITION, NGT ADVANCED PER KUB, PLACEMENT CONFIRMED WITH AUSCULTATION.
--- NOTE | 2016-12-06 18:00 | NUR ---
REPOSITIONED AND ORAL CARE PROVIDED. VSS.
--- NOTE | 2016-12-06 19:20 | NUR ---
Received patient sedated in bed with eyes closed, assessment completed per flowsheet. Patient responds to pain and opens eyes to deep stimuli. Eyes PERRLA @ 3mm with brisk response, sclera is white. ETT 8.0 @ 26cm lipline mid, NGT R nare noted. S1/S2 noted NSR on telemetry with HR 67, rhythmic and regular. Crackles noted bilateral upper and mid with diminished lower, Vent settings A/C R-22 V-550 50% P-8. Abdomen is round and soft with bowel sounds hypoactive x4. Loya secured with clear yellow urine noted. Weakness noted all extremities with all pulses palpable, cap refill < 3 sec. Unable to assess pain at this time. L subclavian CVL central line with dressing intact, patent with fluids infusing. Oral care/suctioning provided, patient repositioned for comfort. No further needs at this time, all VSS and will continue to monitor.
--- NOTE | 2016-12-06 21:00 | NUR ---
Patient sedated in bed on vent, no visitors at this time. All HS meds given without difficulty, oral care/suctioning provided. Patient repositioned for comfort, no further needs at this time and will continue to monitor.
--- NOTE | 2016-12-06 23:20 | NUR ---
Reassessment completed per flowsheet, patient sedated in bed on vent. Patient responds to deep stimuli and localizes pain. S1/S2 noted NSR on telemetry with HR 67, rhythmic and regular. Crackles noted bilateral upper and mid with diminished lower, Vent settings unchanged from previous with O2 sat 98%. Unable to assess pain. Oral care/suctioning provided, patient repositioned for comfort. No further needs at this time, all VSS and will continue to monitor.
[2016-12-07] VITALS (24 sets, daily range): BP systolic 105–149; BP diastolic 44–74
--- NOTE | 2016-12-07 01:00 | NUR ---
Patient sedated in bed on vent, oral care/suctioning provided. Patient repositioned for comfort, no further needs at this time and will continue to monitor.
--- NOTE | 2016-12-07 03:10 | NUR ---
Reassessment completed per flowsheet, patient sedated in bed on vent. Patient opens eyes to pain stimuli and withdraws appropriately. S1/S2 noted NSR on telemetry with HR 90, rhythmic and regular. Breathing is slightly shallow on vent with O2 sat 98%, vent settings FiO2 decreased to 40% from previous assessment. Oral care/suctioning provided, patient repositioned for comfort. No further needs at this time, all VSS and will continue to monitor.
--- NOTE | 2016-12-07 05:00 | NUR ---
Patient sedated in bed on vent, AM labs collected without difficulty. Oral care suctioning provided, patient repositioned for comfort. No further needs at this time, all VSS and will continue to monitor.
[2016-12-07 06:01] LABS: BASOPHILS 0 % (0-2); EOSINOPHILS 0 % (0-7); HEMATOCRIT 27.9 % (42.0-54.0); HEMOGLOBIN 8.7 g/dL (13.5-17.5); IMMATURE GRANULOCYTES 0.1 % (0-5); MCH 28.5 pg (26.0-34.0); MCHC 31.2 g/dL (31.0-37.0); MCV 91.5 fL (80.0-100.0); MEAN PLATELET VOLUME 12.1 fL (7.4-10.4); MONOCYTES 1.5 % (2-11); NEUTROPHILS 95.4 % (40-80); PLATELET COUNT 235 10x3/uL (130-400); RBC 3.05 10x6/uL (4.20-6.10); RDW 17.4 % (11.5-14.5)
[2016-12-07 06:04] LABS: WBC 9.3 10x3/uL (4.8-10.8)
[2016-12-07 06:53] LABS: ALBUMIN 2.4 g/dL (3.4-5.0); BILIRUBIN - TOTAL 0.79 mg/dL (0.2-1.3); CALCIUM 8.6 mg/dL (8.5-10.1); CARBON DIOXIDE 22.1 mmol/L (21.0-32.0); CREATININE - SERUM 1.8 mg/dL (0.6-1.3); PROTEIN - SERUM 6.5 g/dL (6.4-8.2)
[2016-12-07 06:54] LABS: ANION GAP 17.4 mmol/L (8-16); POTASSIUM - SERUM 3.5 mmol/L (3.5-5.1); TROPONIN-I 9.369 ng/mL (0.000-0.060)
--- NOTE | 2016-12-07 07:00 | NUR ---
PT REPORT REC'D, PT CARE ASSUMED. PT SEDTATED ON VENT. VSS. LEFT SUBCLAVIAN CVL WITH FLUIDS INFUSING, SEE FLOW SHEET. DANIELLE CATHETER FREE OF KINKS TO GRAVITY WITH URINE RETURN. SCD'S, BILAT WRIST RESTRAINTS. SHIFT ASSESSMENT COMPLETED, SEE FLOW SHEET. ROOM FREE OF CLUTTER, CALL LIGHT IN REACH, WILL CONTINUE TO MONITOR PT.
--- NOTE | 2016-12-07 09:00 | NUR ---
PT FAMILY AT THE BEDSIDE, ALL QUESTIONS ANSWERED, PT SISTER REQUESTING THAT "I TALK TO THE LUNG DOCTOR WHEN HE GETS UP HERE." INFORMED PT THAT I WOULD GET HER FROM THE WAITING ROOM IF DR. GUTIERREZ GETS HERE NOT DURING VISITING HOURS.
--- NOTE | 2016-12-07 11:00 | NUR ---
REPOSITIONED PT, PROPPED WITH PILLOWS, VSS, REASSESSMENT COMPLETED, SEE FLOW SHEET. ROOM FREE OF CLUTTER, CALL LIGHT IN REACH, BED ALARM ACTIVATED. WILL CONTINUE TO MONITOR PT.
--- NOTE | 2016-12-07 11:38 | NUR ---
* Is the patient Alert and Oriented? No 0 * How many steps to enter\exit or inside your home? Ramp 0 * PCP [facility] 0 * Pharmacy [facility] 0 * Preadmission Environment Home Alone 0 * ADLs Independent 0 * Equipment CPAP 0 * List name and contact numbers for known caregivers / representatives who currently or will assist patient after discharge: Papo Lewis Jr. [phone] Papo Warner [phone] Sister - Marion Newby [phone] 0 * Can the patient safely return to the preadmission environment? Yes 0 * Has this patient been hospitalized within the prior 30 days at any hospital? No 12/07/2016 11:38 DCP: Discharge Planning Patient Name: TYLOR PARKER Admission Status: ER Accout number: [id number] Admission Date: 12-03-2016 : 1950 Admission Diagnosis:NON-ST ELEVATION (NSTEMI) MYOCARDIAL INFARCTION Attending: ERNIE Current LOS: 4 Planned Disposition: Home Primary Insurance: [facility] PPO Discharge Planning Comments: Patient sedated, on vent. CM met with patient's sister, Marion Newby. She reports patient was living alone, recently placing his in a senior living care facility in [facility]). He was independent with all ADL's & IADL's. He does not use any DME except for a C-pap at home. He has not had home health services in the past. DC needs are unknown at this time. CM will follow & assist as needed. Salesperson Art Objects: Allyn Varma
--- NOTE | 2016-12-07 12:28 | NUR ---
UNABLE TO FLUSH NGT, RESITED NGT TO OGT, FLUSHES, PLACEMENT CHECKED WITH AUSCULATION. WILL CONTINUE TO MONITOR PT.
--- NOTE | 2016-12-07 12:51 | NUR ---
DR. GUTIERREZ AT THE BEDSIDE, CONTACTED PT'S SISTER PER REQUEST SO COULD SPEAK WITH HER.
[2016-12-07 13:47] LABS: % SATURATION 5 % (15-55); IRON 15 ug/dl (35-150); TOTAL IRON BIND CAPACITY 259 ug/dl (260-445); UNSAT IRON BIND CAPACITY 244 ug/dl (150-375)
--- NOTE | 2016-12-07 14:18 | NUR ---
COMPLETE BED BATH AND LINEN CHANGE, PT TOLERATED WELL, VSS, WILL CONTINUE TO MONITOR PT.
--- NOTE | 2016-12-07 15:00 | NUR ---
REPOSITONED PT, PROPPED WITH PILLOWS, VSS. REASSESSMENT COMPLETED,SEE FLOW SHEET. ROOM FREE OF CLUTTER, CALL LIGHT IN REACH, WILL CONTINUE TO MONTIOR PT.
--- NOTE | 2016-12-07 17:00 | NUR ---
REPOSITIONED PT, PROPPED WITH PILLOWS, VSS, WILL CONTINUE TO MONITOR PT.
--- NOTE | 2016-12-07 19:00 | NUR ---
REPORT RECEIVED AND ASSESSMENT COMPLETED. SEE FLOWSHEET FOR FULL DETAILS. PT HAS LEFT SUBCLAVIAN AND MIDLINE IN LEFT ARM. PT IS VENTED. 8.0 27 AT THE LIP. 550 TV 40%FIO2 PEEP 5 SAT AY 97. RATE OF 22. WILL MONITOR THROUGHOUT SHIFT. VSS.
--- NOTE | 2016-12-07 21:00 | NUR ---
2100 MEDS GIVEN. 2 UNITS INSULIN GIVEN FOR FSBS 178.
--- NOTE | 2016-12-07 23:00 | NUR ---
REASSESSMENT COMPLETED. SEE FLOWSHEET FOR FULL DETAILS.VSS. NO OTHER CHANGES IN STATUS AT THIS TIME. NEW ORDERS RECEIVED FROM DR DON. WILL CONTINUE TO MONITOR
[2016-12-08] VITALS (24 sets, daily range): BP systolic 104–141; BP diastolic 44–575
--- NOTE | 2016-12-08 01:00 | NUR ---
RESPIRATORY AT BEDSIDE. NO OHER CHANGES IN STATUS AT THIS TIME. DANIELLE CARE PERFORMED. VSS. WILL MONITOR
--- NOTE | 2016-12-08 03:00 | NUR ---
REASSESSMENT COMPLETED. SEE FLOWSHEET FOR FULL DETAILS. NO OTHER CHANGES IN STATUS A THIS TIME.WILL CONTINUE TO MONITOR
--- NOTE | 2016-12-08 05:00 | NUR ---
NO CHANGES IN STATUS AT THIS TIME. ABGS DRAWN BY RESPIRATORY. WILL CONTINUE TO MONITOR.
[2016-12-08 06:53] LABS: BASOPHILS 0 % (0-2); EOSINOPHILS 0 % (0-7); HEMATOCRIT 27.5 % (42.0-54.0); HEMOGLOBIN 8.6 g/dL (13.5-17.5); IMMATURE GRANULOCYTES 0.3 % (0-5); LYMPHOCYTES 2.8 % (15-50); MCHC 31.3 g/dL (31.0-37.0); MCV 92.6 fL (80.0-100.0); MEAN PLATELET VOLUME 12.7 fL (7.4-10.4); MONOCYTES 4.8 % (2-11); NEUTROPHILS 92.1 % (40-80); PLATELET COUNT 227 10x3/uL (130-400); RBC 2.97 10x6/uL (4.20-6.10); RDW 17.8 % (11.5-14.5); WBC 12.3 10x3/uL (4.8-10.8)
--- NOTE | 2016-12-08 07:00 | NUR ---
RECEIVED PATIENT. VENTILATED AND SEDATED. VSS. RESTRAINTS IN USE. TUBE FEEDINGS AT 20ML/HR.
[2016-12-08 07:02] LABS: ALBUMIN 2.3 g/dL (3.4-5.0); ANION GAP 12.9 mmol/L (8-16); BILIRUBIN - TOTAL 0.61 mg/dL (0.2-1.3); CALCIUM 8.4 mg/dL (8.5-10.1); CARBON DIOXIDE 24.3 mmol/L (21.0-32.0); CREATININE - SERUM 1.8 mg/dL (0.6-1.3); MAGNESIUM - SERUM 2.1 mg/dL (1.8-2.4); PHOSPHOROUS 3.3 mg/dL (2.5-4.9); POTASSIUM - SERUM 3.2 mmol/L (3.5-5.1); PROTEIN - SERUM 6.3 g/dL (6.4-8.2)
[2016-12-08 07:09] LABS: TROPONIN-I 7.382 ng/mL (0.000-0.060)
[2016-12-08 08:18] LABS: FOLATE (FOLIC ACID) - SERUM 5.8 ng/mL (>3.0)
--- NOTE | 2016-12-08 09:31 | NUR ---
NUTRITION MONITORING & EVAL CHART REVIEWED. PT REMAINS SEDATED ON VENT. DIPRIVAN @ 35 CC/HR PROVIDING 924 KCAL PER DAY. PULMOCARE @ 20 CC/HR PROVIDING 720 KCAL, 30 GM PROTEIN PER DAY. TOTAL 1644 KCAL, 30 GM PROTEIN [address] DAY. RD FOLLOWING
--- NOTE | 2016-12-08 10:00 | NUR ---
MORNING MEDICATIONS PROVIDED. NO RESIDUALS FROM OGT TUBE.
--- NOTE | 2016-12-08 11:00 | NUR ---
VISITOR FROM [facility] STOPPED BY ON WAY TO SEE PATIENT'S AT DETENTION.
--- NOTE | 2016-12-08 12:00 | NUR ---
DR GUTIERREZ IN TO SEE PATIENT. ADJUSTED VENT SETTINGS AND ASKED FOR INCREASE IN TUBE FEEDING TO 30ML/HR WITH INCREASES Q6H OF 10ML TO GOAL OF 45ML/HR.
--- NOTE | 2016-12-08 12:30 | NUR ---
PT HAS HAD LARGE BOWEL MOVEMENT. CLEANED UP AND ALL NEW LINENS PROVIDED. PT FOUND TO BE CHEWING ON ETT WHILE BEING MOVED AROUND. ADDITIONAL SEDATION PROVIDED. HAD SMALL NOSE BLEED, JUST ENOUGH TO SHOW IN HIS MOUSTACHE. CLEANED UP AND NO ADDITIONAL BLEEDING NOTED.
--- NOTE | 2016-12-08 15:00 | NUR ---
NO VISITORS AT THIS TIME.
--- NOTE | 2016-12-08 17:00 | NUR ---
ALL NEW TUBE FEEDING SET UP STARTED. PULMOCARE. DRESSING TO LEFT ARM MIDLINE ACCESS CHANGED. NO SIGNS OF INFECTION. PT REPOSITIONED.
--- NOTE | 2016-12-08 19:00 | NUR ---
REPORT RECEIVED AND ASSESSMENT COMPLETED. SEE FLOWSHEET FOR FULL DETAILS. VSS. PT IS STILL INTUBATED. RATE OF 20 FIO2 35% SIZE 8 27 AT LIP. TIDAL VOLUME 550. PEEP 5. DR DON STATES THAT BRONCH MAY BE A POSSIBILITY IS CXR DOES NOT IMPROVE IN AM. O2 SAT AT 95% CURRENTLY. WILL CONTINUE TO MONITOR THROUGHOUT SHIFT.
--- NOTE | 2016-12-08 21:00 | NUR ---
2100 MEDS GIVEN. FAMILY AND TRAINING AND DEVELOPMENT COORDINATOR AT BEDSIDE. UPDATED ON PATIENT CONDITION. VSS WILL CONTINUE TO MONITOR THROUGHOUT SHIFT.
--- NOTE | 2016-12-08 23:00 | NUR ---
REASSESSMENT COMPLETED. SEE FLOWSHEET FOR FULL DETAILS. VSS. PT WAS NOT HANDLING FEED RATE AT THIS TIME. FEED STOPPED. WILL RESTART IN 1 HOUR AT LOWER RATE AND CONTINUE TO MONITOR CLOSELY. PT SUCTIONED AND ORAL CARE PROVIDED PER VENT PROTOCOL. VSS.
[2016-12-09] VITALS (25 sets, daily range): BP systolic 117–149; BP diastolic 49–71; Ht 182.9 cm; Wt 125.9 kg
--- NOTE | 2016-12-09 01:00 | NUR ---
PULMOCARE FOUND IN ORAL CAVITY. CHECKED PLACEMENT AND UNABLE TO AUSCULTATE. WILL ATTEMPT TO REPLACE WITH NEW TUBE.
--- NOTE | 2016-12-09 01:45 | NUR ---
UNABLE TO PLACT NEW OGT OR NGT AT THIS TIME. MULTIPLE ATTEMPTS WERE MADE BY BOTH MYSELF AND PURNIMA. WILL HAVE ZULAY ATTEMPT.
--- NOTE | 2016-12-09 03:00 | NUR ---
REASSESSMENT COMPLETED SEE FLOWSHEET. PT HAD LOOSE BM. FULL BEDBATH AND LINEN CHANGE PROVIDED. DANIELLE CARE COMPLETED. PT HAS BEEN BRADYCARDIC THROUGHOUT MAJORITY OF SHIFT. WILL CONTINUE TO MONITOR FOR CHANGES IN STATUS. VSS.
--- NOTE | 2016-12-09 05:29 | NUR ---
PT HR STILL BRADYCARDIC;HOWEVER, DIPS INTO LOW 50'S AND UPPER 40'S AT THIS TIME. PROPOFOL DECREASED TO 50 MCG. WILL CONTNINUE TO MONITOR FOR CHANGES AND TRENDS.
[2016-12-09 05:43] LABS: BASOPHILS 0 % (0-2); EOSINOPHILS 0 % (0-7); HEMATOCRIT 28.5 % (42.0-54.0); HEMOGLOBIN 8.9 g/dL (13.5-17.5); IMMATURE GRANULOCYTES 0.4 % (0-5); LYMPHOCYTES 2.4 % (15-50); MCH 28.5 pg (26.0-34.0); MCHC 31.2 g/dL (31.0-37.0); MCV 91.3 fL (80.0-100.0); MEAN PLATELET VOLUME 12.5 fL (7.4-10.4); MONOCYTES 5.4 % (2-11); NEUTROPHILS 91.8 % (40-80); PLATELET COUNT 213 10x3/uL (130-400); RBC 3.12 10x6/uL (4.20-6.10); RDW 17.6 % (11.5-14.5); WBC 13.8 10x3/uL (4.8-10.8)
[2016-12-09 05:55] LABS: ALBUMIN 2.3 g/dL (3.4-5.0); ANION GAP 15.9 mmol/L (8-16); BILIRUBIN - TOTAL 0.58 mg/dL (0.2-1.3); CALCIUM 8.5 mg/dL (8.5-10.1); CARBON DIOXIDE 24.5 mmol/L (21.0-32.0); CREATININE - SERUM 1.5 mg/dL (0.6-1.3); POTASSIUM - SERUM 3.4 mmol/L (3.5-5.1); PROTEIN - SERUM 6.1 g/dL (6.4-8.2)
--- NOTE | 2016-12-09 07:00 | NUR ---
REC'D CARE OF PT. SEDATED WITH DIPRIVAN ON VENT.
--- NOTE | 2016-12-09 08:00 | NUR ---
INITIAL ASSESSMENT COMPLETED PER FLOW SHEET. SEDATED ON VENT. AC, RATE OF 20, TV 550, PEEP OF 8, 35% FIO2. ACTUAL RR 20. 8.0 ETT PROPERLY SECURED AT 26CM AT LIP. OGT WITH TF AT 30CC PER HOUR. RESIDUALS 5CC. PLACEMENT ERIFIED WITH SMALL AIR BOLUS AUSCULTATED OF GASTRIC REGION. LEFT SCTL. DRSG CD&I. ORANGE STERILE CAPS IN PLACE. DRSG IS DATED 12/07. CD&I. LUNGS WITH CRACKLES THROUGHOUT WITH WORSENING ON LEFT SIDE. BS +X4 QUADS. SIS2. BRADYCARDIC. PPP BUT WEAK IN UPPER AND LOWER EXT. HEELS ARE BRIDGED. CPOC. -
--- NOTE | 2016-12-09 08:58 | NUR ---
CVP TO DISTAL PORT OF LEFT SCTL. LEVELED AND ZEROED. 14 AT THIS TIME.
--- NOTE | 2016-12-09 09:18 | NUR ---
FAMILY AT BEDSIDE. UPDATED.
--- NOTE | 2016-12-09 09:18 | NUR ---
HIS SISTER CALLED. UPDATED AFTER OBTAINING PASS WORD.
--- NOTE | 2016-12-09 11:27 | NUR ---
REASSESSMENT COMPLETED PER FLOW SHEET. NO ACUTE CHANGES. REMAINS SEDATED ON VENT. VSS.
--- NOTE | 2016-12-09 12:01 | NUR ---
FAMILY AT BEDSIDE. UPDATED.
--- NOTE | 2016-12-09 12:15 | NUR ---
SPOKE WITH HIS SON VIA PHONE. UPDATED ONLY AFTER OBTAINING PASSCODE.
--- NOTE | 2016-12-09 12:27 | NUR ---
PLACEMENT OF OGT VERIFIED WITH 20CC AIR BOLUS AUSCULTATED OVER GASTRIC REGION. INCONTINENT OF STOOL. BATHED AND ALL LINEN CHANGED.
--- NOTE | 2016-12-09 13:20 | NUR ---
DR. GUTIERREZ AT BEDSIDE. HE CHANGED VENT TO SIMV MODE.
--- NOTE | 2016-12-09 13:23 | NUR ---
DR. GUTIERRZE ON PHONE WITH MRS. RENEE PT. SISTER UPDATING.
--- NOTE | 2016-12-09 17:02 | NUR ---
INCONTINENT OF STOOL. LIQUID BROWN. BATHED AND LINEN CHANGED.
--- NOTE | 2016-12-09 18:12 | NUR ---
FAMILY AT BEDSIDE. UPDATED.
--- NOTE | 2016-12-09 18:22 | NUR ---
RENAL PHYSCIAN AT BEDSIDE.
--- NOTE | 2016-12-09 19:00 | NUR ---
REPORT RECEIVED AND ASSESSMENT COMPLETED. SEE FLOWSHEET FOR FULL DETAILS. PT VENT SETTINGS HAVE CHANGED FROM LAST SHIFT NOW ON SIMV RATE OF 15 TV OF 600 PRESSURE SUPPORT 15 PEEP OF 8. O2 SAT 96% PT HAS CRACKLES THROUGHOUT UPPER LOBES BILATERALLY. WILL MONITOR THROUGHOUT SHIFT. VSS.
--- NOTE | 2016-12-09 21:00 | NUR ---
new orders received from dr marie will administer albumin and change rate on / ns. no other changes at this time. will monitor
[2016-12-10] VITALS (26 sets, daily range): BP systolic 117–146; BP diastolic 47–66
--- NOTE | 2016-12-10 01:00 | NUR ---
RESPIRATORY IN ROOM. SHAVED PT FACE TO ASSIST WITH TUBE TAMER REPLACEMENT. VSS. NO OTHER CHANGED AT THIS TIME. WILL MONITOR
--- NOTE | 2016-12-10 03:00 | NUR ---
REASSESSMENT COMPLETED. SEE FLOWSHEET FOR FULL DETAILS. NOTICED TUBE FEEDING IN ORAL CAVITY AGAIN THIS AM. PLACEMENT CHECKED WITH 30 ML AIR BOLUS, HEARD IN EPIGASTRIC REGION WILL STOP FEEDING UNTIL FURTHER ASSESSMENT CAN BE COMPLETED.VSS. WILL MONITOR CLOSELY.
--- NOTE | 2016-12-10 03:58 | NUR ---
PT SUCTIONED INLINE BY MATTHEW PIZANO. TUBE FEEDING SEEN IN ETT SUCTION. TUBE FEED HAS BEEN OFF SINCE 129 WHEN PULMOCARE WAS SEEN IN PT MOUTH. NO PULMOCARE WAS SEEN IN INLINE SUCTION AT THAT TIME. RECHECKED PLACEMENT AGAIN, AND CONFIRMED AIR BOLUS COULD BE HEAR IN THE EPIGASTRIC REGION. WILL CONTNUE TO MONITOR FOR COMPLICATIONS.
--- NOTE | 2016-12-10 05:00 | NUR ---
LABS DRAWN AND I&O COLLECTED. PT SUCTIONED INLINE AND ORAL. SCANT AMOUNTS OF PULMOCARE STILL NOTED. WILL MONITOR. PT O2 SAT 94%. WILL CONTINUE TO MONITOR FOR CHANGES.
[2016-12-10 05:43] LABS: BASOPHILS 0 % (0-2); EOSINOPHILS 0 % (0-7); HEMATOCRIT 30.8 % (42.0-54.0); HEMOGLOBIN 9.6 g/dL (13.5-17.5); IMMATURE GRANULOCYTES 0.6 % (0-5); MCH 28.2 pg (26.0-34.0); MCHC 31.2 g/dL (31.0-37.0); MCV 90.6 fL (80.0-100.0); MONOCYTES 6.8 % (2-11); NEUTROPHILS 89.6 % (40-80); PLATELET COUNT 216 10x3/uL (130-400); RDW 17.3 % (11.5-14.5); WBC 16.1 10x3/uL (4.8-10.8)
[2016-12-10 05:58] LABS: ALBUMIN 2.5 g/dL (3.4-5.0); ANION GAP 11.6 mmol/L (8-16); BILIRUBIN - TOTAL 0.56 mg/dL (0.2-1.3); CALCIUM 8.4 mg/dL (8.5-10.1); CARBON DIOXIDE 27.8 mmol/L (21.0-32.0); PHOSPHOROUS 3.4 mg/dL (2.5-4.9); POTASSIUM - SERUM 3.4 mmol/L (3.5-5.1); PROTEIN - SERUM 6.2 g/dL (6.4-8.2); VANCOMYCIN - RANDOM 10.7 ug/mL (10.0-20.0)
[2016-12-10 05:59] LABS: CREATININE - SERUM 1.1 mg/dL (0.6-1.3); MAGNESIUM - SERUM 2.7 mg/dL (1.8-2.4)
--- NOTE | 2016-12-10 07:15 | NUR ---
REPORT RECIEVED FROM DIRECTOR OF SPECIAL EVENTS NURSE. PT RESTING IN BED QUIETLY. NO S/SX OF ACUTE DISTRESS NOTED AT THIS TIME. FULL ASSESSMENT COMPLETE PER FLOWSHEET. REFER TO FLOWSHEET FOR DETAILS. WILL CONT TO ASSESS FOR CHANGES. CALL LIGHT IN REACH. BED IN LOW POSITION.
--- NOTE | 2016-12-10 09:00 | NUR ---
LANDSCAPE ARTIST AT BEDSIDE FOR VISITATION.
--- NOTE | 2016-12-10 10:47 | NUR ---
Nutrition Follow Up: Chart reviewed. Pt remains intubated and sedated. TF of Pulmocare currently on hold. Wt stable. +BM 12/10/16. Labs reviewed. Meds noted including Diprivan @ 29.6 ml/hr providing 781 kcal/d. Rec resume TF when medically feasible. RD will continue to monitor pt progress.
--- NOTE | 2016-12-10 11:00 | NUR ---
REASSESSMENT COMPLETE PER FLOWSHEET. NO CHANGES NOTED AT THIS TIME. WILL CONT TO MONITOR.
--- NOTE | 2016-12-10 15:00 | NUR ---
FAMILY AT BEDSIDE. DR. GUTIERREZ PROVIDED AND UPDATE ON CURRENT STATUS.
--- NOTE | 2016-12-10 15:15 | NUR ---
DR. GUTIERREZ STATED TO START TF AGAIN IN AM. HELD THIS AM DUE TO HIGH RESIDUALS AND TF'S BEING SUCTIONED WHILE PROVIDING ORAL CARE. WILL REPORT TO ETHOLOGIST.
--- NOTE | 2016-12-10 15:30 | NUR ---
ATENALOL AND LISINOPRIL ADMINISTERED AT THIS TIME. PT REMAINS HYPERTENSIVE EVEN AFTER DOSE OF PRN LOPRESSOR. PT DID NOT RECIEVE TODAYS DOSE DUE TO BEING NPO FOR SURGERY.
--- NOTE | 2016-12-10 17:05 | NUR ---
DR. PELAEZ AT BEDSIDE. I&O'S COMPLETE. PT REPOSITIONED FOR COMFORT. ORAL CARE PROVIDED.
--- NOTE | 2016-12-10 19:20 | NUR ---
PT SEDATED AND INTUBATED. LUNG SOUNDS CRACKLES, SPO2 95 FIO2 40%. ORAL CARE ADM. S1S2 AUSCULTATED, PERIPHERAL PULSES PRESENT. BOWEL SOUNDS HYPOACTIVE, ABD DISTENDED. HR 40'S-50'S ON MONITOR, SBP 120-130. PT REPOSITIONED WITH BONY PROMINENCES BRIDGED. NO S/S OF PAIN OR DISTRESS NOTED AT THIS TIME. CPOC.
--- NOTE | 2016-12-10 23:20 | NUR ---
REASSESSMENT COMPLETE, SEE FLOWSHEET FOR ALL FINDINGS. NO ACUTE CHANGES NOTED AT THIS TIME. HR REMAINS 40-50'S. BP REMAINS STABLE. PERIPHERAL PULSES PALPABLE. ORAL CARE ADM. PT REPOSITIONED WITH BONY PROMINENCES BRIDGED. NO S/S OF DISTRESS OR PAIN AT THIS TIME. CPOC.
[2016-12-11] VITALS (24 sets, daily range): BP systolic 113–143; BP diastolic 48–61
--- NOTE | 2016-12-11 01:00 | NUR ---
PT REPOSITIONED WITH PARTIAL LINEN CHANGE COMPLETE. ORAL CARE ADM. NO S/S OF DISTRESS OR PAIN. CPOC.
--- NOTE | 2016-12-11 03:20 | NUR ---
REASSESSMENT COMPLETE, NO NEW CHANGES AT THIS TIME. CPOC.
[2016-12-11 04:42] LABS: BASOPHILS 0 % (0-2); EOSINOPHILS 0 % (0-7); HEMATOCRIT 30.1 % (42.0-54.0); HEMOGLOBIN 9.5 g/dL (13.5-17.5); IMMATURE GRANULOCYTES 0.6 % (0-5); LYMPHOCYTES 2.2 % (15-50); MCH 28.3 pg (26.0-34.0); MCHC 31.6 g/dL (31.0-37.0); MCV 89.6 fL (80.0-100.0); MEAN PLATELET VOLUME 11.9 fL (7.4-10.4); MONOCYTES 7.2 % (2-11); PLATELET COUNT 187 10x3/uL (130-400); RBC 3.36 10x6/uL (4.20-6.10); RDW 17.3 % (11.5-14.5); WBC 13.2 10x3/uL (4.8-10.8)
[2016-12-11 05:08] LABS: ALBUMIN 2.6 g/dL (3.4-5.0); ALKALINE PHOSPHATASE 44 U/L (46-116); ALT (SGPT) 14 U/L (10-68); BILIRUBIN - TOTAL 0.61 mg/dL (0.2-1.3); CALC OSMOLALITY 317 mosm/kg (275-300); CALCIUM 8.3 mg/dL (8.5-10.1); CARBON DIOXIDE 26.8 mmol/L (21.0-32.0); CHLORIDE - SERUM 114 mmol/L (98-107); GLUCOSE 213 mg/dL (74-106); POTASSIUM - SERUM 3.7 mmol/L (3.5-5.1); PROTEIN - SERUM 6.1 g/dL (6.4-8.2); SODIUM 150 mmol/L (136-145); UREA NITROGEN 51 mg/dL (7-18); eGFR NON AFRICAN AMERICAN 79 mL/min (90-120)
--- NOTE | 2016-12-11 18:45 | NUR ---
0715-RECIEVED PER FLOW SHEET-RESPONDS TO TACTILE-NOTED OGT PLACEMENT CHECKED-LOUD AUSCULATION MIDSTERNUM-WITH AUDIBLE AIR ESCAPE ORAL-OGT REMAINS CLAMPED--NOTED SB 47- 1000-RENAL AT [facility]-INFORMED OF CURRENT DISYDJ-UFO-[id number] 1230DR BRENDA AT [facility]-KUB RESULTED AND PLACEMENT NOT CONFIRMED 1500-OGT REPLACED-AND PLACEMENT CONFIRMED-PULMOCARE STARTED AT 25ML/H 1700-INCONTINENT OF LIQUID STOOL--STOOL FOR CDT 1800-ISOLATION STARTED-PER POLICY-[facility]
--- NOTE | 2016-12-11 19:45 | NUR ---
RECVD PT VIA BED TO 2310. TOTAL TRANSFER TO BED WITH RT AT BEDSIDE FOR VENT AND AIRWAY MANAGEMENT. SPO2 96%. ETT PATENT AND SECURED. SIMV SETTINGS. LUNGS WITH RHONCHI NOTED. DIM IN BASES. BATH GIVEN. LINENS CHANGED. MEDIUM LOOSE BM. BS ACTIVE X4. OGT SECURED AND INFUSING TF. AFEBRILE. SINUS SUSHILA ON THE MONITOR. PULSES PALP, WEAK. SCDS IN USE. F/C PATENT WITH IGGY UOP. SEDATED PER PROPOFOL TITRATION. RESTRAINTS FOR SAFETY. HOB UP. CONT CURRENT POC.
--- NOTE | 2016-12-11 21:30 | NUR ---
NO VISITORS. TURNED AND REPOSITIONED. ORAL CARE PER VAP. HS MEDS GIVEN. NO SIG CHANGES. SINUS SUSHILA. SEDATED WELL. NO DISTRESS. CONT CURRENT POC.
--- NOTE | 2016-12-11 23:30 | NUR ---
REASSESSMENT COMPLETED. SEE FLOWSHEET FOR ALL FINDINGS. TURNED AND REPOSITIONED WITH ORAL CARE PER VAP. LUNG SOUNDS WITH RHONCHI NOTED. DIM IN BASES. BS ACTIVE X4. OGT SECURED AND INFUSING TF. AFEBRILE. SINUS SUSHILA ON THE MONITOR. PULSES PALP, WEAK. SCDS IN USE. F/C PATENT WITH IGYG UOP. SEDATED PER PROPOFOL TITRATION. RESTRAINTS FOR SAFETY. HOB UP. CONT CURRENT POC.
[2016-12-12] VITALS (24 sets, daily range): BP systolic 116–143; BP diastolic 56–71
--- NOTE | 2016-12-12 01:20 | NUR ---
TURNED AND REPOSITIONED. ORAL CARE PER VAP. NO SIG CHANGES. CONT CURRENT POC.
--- NOTE | 2016-12-12 03:30 | NUR ---
REASSESSMENT COMPLETED. SEE FLOWSHEET FOR ALL FINDINGS. TURNED AND REPOSITIONED WITH ORAL CARE PER VAP. LUNG SOUNDS WITH RHONCHI NOTED. DIM IN BASES. BS ACTIVE X4. OGT SECURED AND INFUSING TF. AFEBRILE. SINUS SUSHILA ON THE MONITOR. PULSES PALP, WEAK. SCDS IN USE. F/C PATENT WITH IGGY UOP. SEDATED PER PROPOFOL TITRATION. RESTRAINTS FOR SAFETY. HOB UP. CONT CURRENT POC.
[2016-12-12 03:37] LABS: BASOPHILS 0.1 % (0-2); EOSINOPHILS 0 % (0-7); HEMOGLOBIN 10.1 g/dL (13.5-17.5); IMMATURE GRANULOCYTES 0.5 % (0-5); LYMPHOCYTES 3.6 % (15-50); MCH 28.4 pg (26.0-34.0); MCHC 31.6 g/dL (31.0-37.0); MCV 89.9 fL (80.0-100.0); NEUTROPHILS 87.8 % (40-80); PLATELET COUNT 178 10x3/uL (130-400); RBC 3.56 10x6/uL (4.20-6.10); RDW 16.9 % (11.5-14.5)
[2016-12-12 04:10] LABS: ALBUMIN 2.6 g/dL (3.4-5.0); ALKALINE PHOSPHATASE 46 U/L (46-116); ALT (SGPT) 17 U/L (10-68); BILIRUBIN - TOTAL 0.62 mg/dL (0.2-1.3); CALC OSMOLALITY 313 mosm/kg (275-300); CALCIUM 8.5 mg/dL (8.5-10.1); CHLORIDE - SERUM 113 mmol/L (98-107); CREATININE - SERUM 0.9 mg/dL (0.6-1.3); GLUCOSE 177 mg/dL (74-106); MAGNESIUM - SERUM 2.7 mg/dL (1.8-2.4); PHOSPHOROUS 3.6 mg/dL (2.5-4.9); POTASSIUM - SERUM 3.5 mmol/L (3.5-5.1); PRO BNP 3346 pg/mL (0-125); SODIUM 149 mmol/L (136-145); TROPONIN-I 3.613 ng/mL (0.000-0.060); UREA NITROGEN 51 mg/dL (7-18); eGFR NON AFRICAN AMERICAN 89 mL/min (90-120)
--- NOTE | 2016-12-12 05:00 | NUR ---
TURNED AND REPOSITIONED. ORAL CARE PER VAP. VSS. NO SIG CHANGES. CONT CURRENT POC.
--- NOTE | 2016-12-12 11:00 | NUR ---
NO CHANGE NOTED IN PRIMARY ASSESSMENT.
--- NOTE | 2016-12-12 12:28 | NUR ---
DR. WILKINS SPOKE AT LENGTH WITH SISTER. ALSO NURSE EDUCATED SISTER TO VENTILATOR DISPLAY READINGS.
--- NOTE | 2016-12-12 12:52 | NUR ---
CALLED FOR "VICKY" SON, AT [phone] IN ORDER TO OBTAIN CONSCENT, LEFT MESSAGE TO CALL THIS NURSE BACK.
--- NOTE | 2016-12-12 13:06 | NUR ---
SPOKE WITH DAMIEN PARKER, OLDEST SON, TO VERIFY CONSENT FOR HEART CATH ON TUESDAY WHICH HE IS AGREEABLE TO, HE ALSO AGREES THAT IF THE NEED ARISE FOR BLOOD THAT IT IS OK
--- NOTE | 2016-12-12 15:00 | NUR ---
NO CHANGE NOTED IN PRIMARY ASSESSMENT
--- NOTE | 2016-12-12 15:41 | NUR ---
DAMIEN PARKER CALLED AND STATED "IF NEEDED, LARA RENEE MAY MAKE DECISIONS AND SIGN CONSENTS." CANTACTED CASE MGT. REGUARDING THIS.
--- NOTE | 2016-12-12 19:00 | NUR ---
REPORT RECEIVED. ASSESSMENT COMPLETE PER FLOW SHEET. SEDATED ON VENT, OPENS EYES. OGT PLACEMENT VERIFIED VIA AUSCULTATION. OGT FEEDINGS OF PULMOCARE, 0 MLS OF RESIDUAL OBTAINED, WILL CONTINUE WITH FEEDINGS. S1S2 PRESENT. RADIAL AND POPLITEAL PULSES PALP. TELEMETRY MONITORING SINUS BRADYCARDIA. DANIELLE CATHETER IN PLACE AND SECURED DRAINING IGGY URINE. MUCOUS MEMBRANES MOIST. LT SUBCLAVIAN CVL, PATENT, DRESSING ADHERED TO SKIN. LT UPPER ARM PICC LINE, PATENT, DRESSING ADHERED TO SKIN. PT ON CONTACT ISOLATION. ETT TUBE IN PLACE AT 26 CM LEFT LIP LINE. SEE FLOW SHEET FOR COMPLETE ASSESSEMENT. BED IN LOWEST POSITION. WILL CONTINUE TO MONITOR.
--- NOTE | 2016-12-12 22:30 | NUR ---
PT NOT TOLERATING FEEDINGS. SUCTIONED ORAL MUCOUS MEMBRANES AND ORAL CARE PROVIDED. CHECKED PATENTCY OF OGT VIA AUSCULATION. 0 MLS OF RESIDUAL. HOB 30 DEGREES. OGT FEEDINGS DISCONTINUED.
--- NOTE | 2016-12-12 23:00 | NUR ---
REASSESSMENT COMPLETE PER FLOW SHEET, SEE FOR DETAILS. VSS. BED IN LOWEST POSITION. WILL CONTINUE TO MONITOR. ORAL CARE PROVIDED.
[2016-12-13] VITALS (28 sets, daily range): BP systolic 112–148; BP diastolic 52–71
--- NOTE | 2016-12-13 01:15 | NUR ---
PT SEDATED ON VENT. VSS. NO DISTRESS NOTED. FREQUENT MONITORING. PT IN RESTRAINTS. TUBE FEEDING REMAINS ON HOLD. NPO AT MIDNIGHT.
--- NOTE | 2016-12-13 03:00 | NUR ---
REASSESSMENT COMPLETE PER FLOW SHEET, SEE FOR DETAILS. VSS. WILL CONTINUE TO MONITOR.
--- NOTE | 2016-12-13 04:00 | NUR ---
LAYING IN BED, SEDATED ON VENT. VSS. ORAL CARE PROVIDED. BED IN LOWEST POSITION. WILL CONTINUE TO MONITOR.
[2016-12-13 05:00] LABS: BASOPHILS 0 % (0-2); EOSINOPHILS 0.2 % (0-7); HEMATOCRIT 32.6 % (42.0-54.0); HEMOGLOBIN 10.1 g/dL (13.5-17.5); IMMATURE GRANULOCYTES 0.6 % (0-5); LYMPHOCYTES 4.9 % (15-50); MCV 90.3 fL (80.0-100.0); MEAN PLATELET VOLUME 12.5 fL (7.4-10.4); MONOCYTES 5.2 % (2-11); NEUTROPHILS 89.1 % (40-80); PLATELET COUNT 197 10x3/uL (130-400); RBC 3.61 10x6/uL (4.20-6.10); RDW 17.1 % (11.5-14.5); WBC 15.7 10x3/uL (4.8-10.8)
--- NOTE | 2016-12-13 05:00 | NUR ---
LAYING IN BED, SEDATED ON VENT. VSS. WILL CONTINUE TO MONITOR. BED IN LOWEST POSITION.
[2016-12-13 05:07] LABS: INR 1.24 (0.85-1.17); PROTIME 15.5 SECONDS (11.6-15.0)
[2016-12-13 05:15] LABS: ALBUMIN 2.7 g/dL (3.4-5.0); ALKALINE PHOSPHATASE 45 U/L (46-116); ALT (SGPT) 18 U/L (10-68); CALC OSMOLALITY 305 mosm/kg (275-300); CALCIUM 8.2 mg/dL (8.5-10.1); CARBON DIOXIDE 27.2 mmol/L (21.0-32.0); CHLORIDE - SERUM 110 mmol/L (98-107); CREATININE - SERUM 0.9 mg/dL (0.6-1.3); GLUCOSE 154 mg/dL (74-106); MAGNESIUM - SERUM 2.4 mg/dL (1.8-2.4); PHOSPHOROUS 3.7 mg/dL (2.5-4.9); POTASSIUM - SERUM 3.8 mmol/L (3.5-5.1); PROTEIN - SERUM 5.9 g/dL (6.4-8.2); SODIUM 146 mmol/L (136-145); UREA NITROGEN 46 mg/dL (7-18); eGFR NON AFRICAN AMERICAN 89 mL/min (90-120)
--- NOTE | 2016-12-13 07:00 | NUR ---
SHIFT ASSESSMENT COMPLETED, CONTIUES SEDATED ON VENT, VSS, HR 60S-70S REPOSITIONED, NO SIGNS OF PAIN, ORAL CARE AND SUCTIONING PROVIDED WILL CONTINUE TO MONITOR
--- NOTE | 2016-12-13 09:00 | NUR ---
CONSENT FOR CATH PROCEDURE OBTAINED VIA TELEPHONE X2 NURSES, SPOKE WITH TYLOR LEES AND LARA TO CONFIRM
--- NOTE | 2016-12-13 11:00 | NUR ---
PT REPOSITIONED, SUCTIONING AND ORAL CARE PROVIDED, NO SIGNS OF PAIN, VSS, WILL CONTINUE TO MONITOR
--- NOTE | 2016-12-13 12:15 | NUR ---
PT TO BRONZE PLATER FOR CARDIAC CATH, SISTERS IN WAITING ROOM AWARE
--- NOTE | 2016-12-13 12:28 | NUR ---
NUTRITION MONITORING & EVAL CHART REVIEWED. PT OOR FOR PROCEDURE. WILL MONITOR PT PROGRESS. PROVIDE TUBE FEEDING WHEN RESUMED. RD FOLLOWING
--- NOTE | 2016-12-13 14:00 | NUR ---
PT BACK FROM VIDEO PRODUCTION ENGINEER, DRESSING TO RIGHT GROIN CDI, PULSES PALPABLE, NO SIGNS OF BLEEDING, VSS, WILL CONTINUE TO MOITOR
--- NOTE | 2016-12-13 15:39 | NUR ---
VSS, PULSES PALPABLE NO SIGNS OF PAIN WILL CONTINUE TO MINITOR
--- NOTE | 2016-12-13 15:39 | NUR ---
SPOKE WITH DR LYLES ABOUT PT TUBEFEEDINGS AND THAT HE WAS NOT TOLERATING THEM LAST NIGHT PER BRACE END MAINSPRING FORMER, PER RAFAL RESUME TUBE FEEDINGS AT 10ML/HR AND START REGLAN.
--- NOTE | 2016-12-13 17:00 | NUR ---
PT REPOSITIONED, PULSES PALPABLE, VSS, DRESSING CDI, NO SIGNS OF BLEEDING, NO SIGNS OF PAIN, TUBE FEEDINGS RESTARTED AT 1600 NO DIFFICULTY NOTED, OGT IN PLACE PER ASPIRATION AND AUSCULTATION, WILL CONTINUE TO MONITOR
--- NOTE | 2016-12-13 19:00 | NUR ---
REPORT RECEIVED. SHIFT ASSESSMENT COMPLETE PER FLOW SHEET. SEDATED ON VENT WITH DIPRIVAN AT 35 MCG/KG/MIN. AROUSES TO DEEP STIMULI. PUPILS 2 CM BILAT, BRISK REACTION. ORAL AND INLINE SUCTIONED. OGT PLACEMENT VERIFIED VIA AUSCULATION, RESIDUAL OF 0 MLS OBTAINED. ETT IN PLACE AND SECURED. TELEMETRY MONITORING SINUS BRADYCARDIA RATE OF 52. DANIELLE CATHETER IN PLACE AND SECURED, DRAINING DARK IGGY URINE. SKIN WARM AND DRY. LT SUBCLAVIAN CVL, PATENT, DRESSING CLEAN AND INTACT, INFUSING DIPRIVAN AND D5W. TUBE FEEDINGS AT 10 MLS/HR. LT UPPER ARM PICC LINE, DRESSING INTACT. CONTACT ISOLATION.SEE FLOW SHEET FOR COMPLETE ASSESSMENT. VSS. BED IN LOWEST POSITION. WILL CONTINUE TO MONITOR.
--- NOTE | 2016-12-13 19:30 | NUR ---
NOT TOLERATING TUBE FEEDINGS, ORAL MUCOSA SUCTIONED. OGT PLACEMENT VERIFIED VIA AUSCULATATION, RESIDUAL OF 0 MLS OBTAINED. OGT FEEDINGS PUT ON HOLD.
--- NOTE | 2016-12-13 21:00 | NUR ---
OGT REMOVED AND NEW NGT PLACED VIA R NARE BY MIK MCGOVERN, PLACEMENT VERIFIED VIA AUSCULTATION X2 PERSONS. TUBE FEEDINGS RESTARTED. 0 MLS OF RESIDUAL OBTAINED. VSS. WILL CONTINUE TO MONITOR.
--- NOTE | 2016-12-13 23:00 | NUR ---
REASSESSMENT COMPLETE PER FLOWSHEET, SEE FOR DETAILS. ORAL CARE PROVIDED. TUBE FEEDINGS RESIDUAL CHECKED, 0 MLS OBTAINED, WILL CONTINUE WITH FEEDINGS. ORAL CARE PROVIDED. VSS. WILL CONTINUE TO MONITOR. BED IN LOWEST POSITION.
[2016-12-14] VITALS (24 sets, daily range): BP systolic 109–169; BP diastolic 55–79
--- NOTE | 2016-12-14 01:00 | NUR ---
SEDATED ON VENT. VSS. ORAL CARE AND MOISTERIZER PROVIDED. BED IN LOWEST POSITION. WILL CONTINUE TO MONITOR.
--- NOTE | 2016-12-14 03:00 | NUR ---
REASSESSMENT COMPLETE PER FLOW SHEET, SEE FOR DETAILS. COMPLETE BED BATH GIVEN. COMPLETE BED LINENS CHANGED. ORAL CARE PROVIDED, MOISTURIZER APPLIED. VSS. BED IN LOWEST POSITION. WILL CONTINUE TO MONITOR.
--- NOTE | 2016-12-14 04:00 | NUR ---
LAYING IN BED SEDATED. I&O OBTAINED. VSS. BED IN LOWEST POSITION. WILL CONTINUE TO MONITOR.
[2016-12-14 04:38] LABS: BASOPHILS 0 % (0-2); EOSINOPHILS 0.1 % (0-7); HEMATOCRIT 31.1 % (42.0-54.0); HEMOGLOBIN 9.8 g/dL (13.5-17.5); IMMATURE GRANULOCYTES 0.4 % (0-5); LYMPHOCYTES 2.8 % (15-50); MCH 28.4 pg (26.0-34.0); MCHC 31.5 g/dL (31.0-37.0); MCV 90.1 fL (80.0-100.0); MEAN PLATELET VOLUME 13.1 fL (7.4-10.4); MONOCYTES 5.1 % (2-11); NEUTROPHILS 91.6 % (40-80); PLATELET COUNT 195 10x3/uL (130-400); RBC 3.45 10x6/uL (4.20-6.10); RDW 17.1 % (11.5-14.5); WBC 15.4 10x3/uL (4.8-10.8)
[2016-12-14 04:53] LABS: ALBUMIN 2.5 g/dL (3.4-5.0); ALKALINE PHOSPHATASE 56 U/L (46-116); ALT (SGPT) 19 U/L (10-68); BILIRUBIN - TOTAL 0.66 mg/dL (0.2-1.3); CALC OSMOLALITY 298 mosm/kg (275-300); CALCIUM 7.9 mg/dL (8.5-10.1); CARBON DIOXIDE 26.7 mmol/L (21.0-32.0); CHLORIDE - SERUM 109 mmol/L (98-107); CREATININE - SERUM 0.9 mg/dL (0.6-1.3); GLUCOSE 197 mg/dL (74-106); POTASSIUM - SERUM 3.8 mmol/L (3.5-5.1); PROTEIN - SERUM 5.7 g/dL (6.4-8.2); SODIUM 142 mmol/L (136-145); UREA NITROGEN 43 mg/dL (7-18); eGFR NON AFRICAN AMERICAN 89 mL/min (90-120)
--- NOTE | 2016-12-14 05:11 | NUR ---
LAYING IN BED SEDATED. VSS. BED IN LOWEST POSITION. WILL CONTINUE TO MONITOR.
--- NOTE | 2016-12-14 06:00 | NUR ---
SEDATED ON VENT. VSS. BED IN LOWEST POSITION. WILL CONTINUE TO MONITOR.
--- NOTE | 2016-12-14 07:00 | NUR ---
SHIFT ASSESSMENT COMPLETED, PT SEDATED ON VENT, FIO2 30%, PROPOFOL 30MCG, SUCTIONING AND ORAL CARE PROVIDED, REPOSITIONED, NGT IN PLACE PER ASPIRAIJAYLENE ANDN AUSCULTATION, PULMOCARE INFUSING, LEFT SUBCLAVIAN IN PLACE, DRESSING CDI, NO SIGNS OF PAIN, VSS, WILL CONTINUE TO MONITOR
--- NOTE | 2016-12-14 09:00 | NUR ---
PT REPOSITIONED, SUCTIONING AND ORAL CARE PROVIDED, SMALL AMOUNT OF BRIGHT RED SUCTIONED FROM MOUTH, VSS, NO SIGNS OF PAIN, WILL CONTINUE TO MONITOR
--- NOTE | 2016-12-14 09:41 | NUR ---
CHANTAL AWARE OF BRIGHT RED WHEN SUCTIONED ORALLY, WILL CONTINUE TO MONITOR
--- NOTE | 2016-12-14 09:45 | NUR ---
NUTRITION MONITORING & EVAL CHART REVIEWED. PT REMAINS ON VENT. PULMOCARE @ 15 CC/HR. ENTERED TUBE FEED ORDER FOR GOAL RATE 60 CC/HR WITH 25 CC H2O FLUSH Q HOUR. RD FOLLOWING
--- NOTE | 2016-12-14 09:50 | NUR ---
PT SEDATION SLOWLY DECREASED TO 17MCG IN PREPARATION FOR CPAP TRIAL, PER LATOYAD PROPOFOL TURNED OFF, VSS, [facility] OF RED BLEEDING WHEN SUCTIONED ORALLY, WILL CONTINUE TO MONITOR
--- NOTE | 2016-12-14 11:00 | NUR ---
PT REPOSITIONED VSS, NO SIGNS OF PAIN, WILL CONTINUE TO MONITOR
[2016-12-14 12:36] LABS: HEMATOCRIT 32.3 % (42.0-54.0); HEMOGLOBIN 10.1 g/dL (13.5-17.5)
--- NOTE | 2016-12-14 13:00 | NUR ---
PT CONTINUES TO BE SEDATED WITH PROPOFOL OFF, EYES OPEN SPONTANOUSLY, WITHDRAWS FROM PAIN, MOVES LEGS, DOES NOT FOLLOW COMMANDS, REPOSITIONED, VSS, H&H DRAWN, RESULTS WITH LITTLE CHANGE, CONTINUES WITH SMALL AMOUNT OF ORAL BLEEDING, SUCTIONED WITH ORAL CARE PROVIDED, BED BATH WITH LINEN CHANGE, WILL CONTINUE TO MONITOR
--- NOTE | 2016-12-14 13:57 | NUR ---
RESPIRATORY CHANGED IN LINE SUCTION CATHETER, NOTED TO SUCTION SCANT AMOUNT OF BRIGHT RED BLOOD, DR LYLES AWARE
--- NOTE | 2016-12-14 15:00 | NUR ---
PT MORE ALERT, ABLE TO FOLLOW MOVEMENT WITH EYES, STILL UNABLE TO FOLLOW DIRECTIONS, MOVES BLE IN BED WELL, NO SIGNS OF PAIN, REPOSITIONED, CONTINUES WITH SLIGHT BLEEDING FROM MOUTH/THROAT, DR LYLES AWARE OF ALL OF THE ABOVE, VSS, WILL CONTINUE TO MONITOR
--- NOTE | 2016-12-14 16:57 | NUR ---
PT CONTIUES FOLLWING MOVEMENT WITH EYES, THEN IS UNABLE TO DO SO WITHIN MINUTES, PUPILS EQUAL AND REACTIVE, VSS, NO SIGNS OF PAIN, MOVES LEGS AND ATTEMPTS TO MOVE ARMS (IN RESTRAINTS) ON OWN, NOTIFIED DR CORNEJO WITH NEW ORDERS FOR HEAD CT WITHOUT CONTRAST
--- NOTE | 2016-12-14 18:16 | NUR ---
TOOK PT TO CT WITH RESPIRATORY AND RETURNED PT TOLERATED WELL, NO DIFFICULTIES
--- NOTE | 2016-12-14 19:00 | NUR ---
REPORT RECIEVED, SHIFT ASSESSMENT COMPLETE, PT IS ON VENT, MOVING ALL EXTREMETIES, DOES NOT FOLLOW COMMANDS, ON 40% FIO2 WITH 97% O2 SAT. CRACKLES HEARD IN B/L UPPER LOBES, DIMINISHED IN B/L LOWER LOBES, S1S2, PATENT NGT WITH PULMOCARE INFUSING VIA PUMP, 5 RESIDUAL NOTED, ABDOMEN IS DISTENDED WITH ACTIVE BS, PATENT F/C WITH CONCENTRATED UOP, EDEMA NOTED IN ALL EXTREMETIES, ALL PPP, VSS, WILL CON'T TO MONITOR
--- NOTE | 2016-12-14 21:15 | NUR ---
UPDATE GIVEN TO FAMILY OVER PHONE, PASSWORD GIVEN
--- NOTE | 2016-12-14 22:00 | NUR ---
INCREASE IN PT HR, RR AND B/P, PRN DIPROVAN STARTED
--- NOTE | 2016-12-14 23:15 | NUR ---
REASSESSMENT COMPLETE, NO CHANGES NOTED, PT REPOSITIONED FOR COMFORT, ORAL CARE PROVIDED, BLOOD STILL OOZING FROM PT MOUTH, TOWEL IN PLACE
[2016-12-15] VITALS (24 sets, daily range): BP systolic 106–157; BP diastolic 50–86
--- NOTE | 2016-12-15 01:05 | NUR ---
REPOSITIONED FOR COMFORT, ORAL CARE PROVDIDED,
--- NOTE | 2016-12-15 03:15 | NUR ---
REASSESSMENT COMPLETE, NO CHANGES NOTED, WILL CON'T TO MONITOR
[2016-12-15 04:21] LABS: HEMATOCRIT 28.6 % (42.0-54.0); MCH 28.2 pg (26.0-34.0); MCHC 31.5 g/dL (31.0-37.0); MCV 89.7 fL (80.0-100.0); MEAN PLATELET VOLUME 13.6 fL (7.4-10.4); PLATELET COUNT 208 10x3/uL (130-400); RBC 3.19 10x6/uL (4.20-6.10); RDW 16.8 % (11.5-14.5); WBC 21.3 10x3/uL (4.8-10.8)
[2016-12-15 04:26] LABS: CALC OSMOLALITY 306 mosm/kg (275-300); CALCIUM 8.1 mg/dL (8.5-10.1); CHLORIDE - SERUM 109 mmol/L (98-107); CREATININE - SERUM 0.9 mg/dL (0.6-1.3); GLUCOSE 211 mg/dL (74-106); SODIUM 144 mmol/L (136-145); UREA NITROGEN 53 mg/dL (7-18); eGFR NON AFRICAN AMERICAN 89 mL/min (90-120)
[2016-12-15 04:44] LABS: LYMPHOCYTES 4 % (15-50); MONOCYTES 3 % (2-11); NEUTROPHILS 93 % (40-80); PLATELET ESTIMATE DECREASED
[2016-12-15 04:45] LABS: ANISOCYTOSIS 1+; HYPOCHROMASIA OCC; POIKILOCYTOSIS 1+
--- NOTE | 2016-12-15 05:01 | NUR ---
COMPLETE BATH AND LINEN CHANGE, REPOSITIONED FOR COMFORT,
--- NOTE | 2016-12-15 07:00 | NUR ---
ASSESSMENT COMPLETED, CONTINUES ON VENT, ON PROPOFOL DUE TO AGITATION, MOVES EXTREMETIES, DOES NOT FOLLOW COMMANDS, NO SIGNS OF PAIN, LEFT SUBCLAVIAN IN PLACE DRESSING CDI, VSS, REPOSITIONED, ORAL CARE AND SUCTIONING PROVIDED, WILL CON ASHLEY UE TO MONITOR
--- NOTE | 2016-12-15 10:09 | NUR ---
SPOKE WITH DR LYLES CONCERNING PT CONTINUED ORAL/THROAT BLEEDING, INTOLERANCE TO TUBE FEEDS LAST NIGHT, AND INCREASED AGITATION LAST NIGHT, PER RAFAL TUBE FEEDING RESTARTED PULMOCARE AT 20 ADVANCE TOLERATED PER PREVIOUS ORDER AND STOP PROPOFOL. PT CONTINUES MOVING EXTREMETIES, UNABLE TO FOLLOW COMMANDS, NGT IN PLACE PER ASPIRAITON/AUSCULTATION, NEW ORDERS FOR CONSULTS, MADE AWARE, VSS, WILL CONTINUE TO MONITOR
--- NOTE | 2016-12-15 12:00 | NUR ---
PT SISTER IN ROOM FOR VISITATION, AWARE OF ALL CONSULTS, ALL QUESTIONS ANSWERED, PT LOOKS AT SISTER WHEN TALKS BUT STILL DOES NOT FOLLOW ANY DIRECTION OR MAKE ANY ATTEMPT TO COMMUNICATE, REPOSITIONED, WILL CONTINUE TO MONITOR
--- NOTE | 2016-12-15 13:53 | EC ---
PATIENT:TYLOR PARKER DATE OF SERVICE: 12/03/16 SEX: M MEDICAL RECORD: [id number] DATE OF : 46 [facility] AGE OF PATIENT: 66 ADMISSION DATE: 12/03/16 REFERRING PHYSICIAN: INTERPRETING PHYSICIAN: MARKO HAYNES MD ECHOCARDIOGRAM REPORT ECHO CHARGES 4 ECHO COMPLETE CLINICAL DIAGNOSIS: CHF ECHOCARDIOGRAPHIC MEASUREMENTS (adult normal given) AC root (d.<3.7cm) 3.6 LV Septum d (<1.2 cm> 1.4 Valve Excursion 2.6 LV Septum (systole) 1.8 Left Atria (s.<4.0cm> 4.5 LVPW d(<1.2cm) 1.4 RV (d.<2.3cm) 2.9 LVPW (sytole) 1.9 LV diastole(<5.6CM) 7.5 MV E-F(>70mm/sec) LV systole 5.0 LVOT Diameter 2.2 MV exc.(>10mm) Est.ejection fraction (50-75%) Pericardial Effusion N DOPPLER: LVIT A 59.0 E 157 LA RVSP 54.0 LVOT 128 AOP1/2T 484.0 Asc. Ao 210 RVOT 83.0 RA PA 108 AV Gradient Peak 18.0 AV Mean 9.6 AV Area MV Gradient Peak 13.0 MV Mean 3.6 MV Area COMMENTS: Animal Behaviourist: Vira LIZAMAOE Broadcast Operations Director:1 Dr. Haynes TAPE# PACS TWO-DIMENSIONAL ECHOCARDIOGRAM WITH DOPPLER 1. Left ventricular chamber size is within normal limits. Left ventricular systolic function is normal. Overall ejection fraction is estimated at 55 percent. 2. Left atrium is enlarged at 4.5 centimeters. Right atrium and right ventricular chamber sizes are as well mildly dilated. 3. Valvular structures have normal structure and motion. 4. Doppler interrogation reveals mild aortic insufficiency, severe mitral regurgitation, severe tricuspid regurgitation; no other valvular insufficiency or stenosis. However, pulmonary artery systolic pressure is elevated estimated at 54 ECHOCARDIOGRAM REPORT [id number] TYLOR PARKER millimeters of mercury. 5. No evidence of pericardial effusion or left ventricular thrombus. MARKO HAYNES MD at 0072 CC: [id number] DICTATION DATE: 12/03/162137 MAINT MECHANIC: JIN 12/03/162137 ADM IN [facility] [address] [id number]
--- NOTE | 2016-12-15 13:54 | OP ---
PATIENT NAME: TYLOR PARKER MEDICAL RECORD: [id number] :46 LOCATION:D[facility] D.2310 ADMISSION DATE:12/03/16 SURGEON: MARKO WILKINS MD OPERATION DATE: 12/03/16 DATE OF OPERATION: 12/13/2016 PROCEDURES: 1. PTCA stent LAD diagonal. 2. Left heart catheterization. 3. Selective coronary angiography. 4. Left ventriculogram. 5. Vein graft angiography. 6. BERGERON angiography. INDICATION: Non-Q-wave myocardial infarction, coronary artery disease and respiratory failure. PROCEDURE IN DETAIL: After informed consent was obtained and after detailed explanation of risks, benefits as well as alternative therapies, the patient elected to proceed with angiogram and angioplasty. The right femoral area was prepped and draped in normal sterile fashion. The right femoral artery was cannulated via modified Seldinger technique with placement of 6-Kazakh sheath. All catheters exchanged through this sheath. FINDINGS: The left ventriculogram was performed in standard 30-degree UGARTE view reveals global hypokinesis throughout all segments. Overall ejection fraction estimated at 30%. SELECTIVE CORONARY ANGIOGRAPHY: 1. Left main showed no significant angiographic disease. 2. Left anterior descending is totally occluded in mid vessel, distal LAD is grafted by patent BERGERON graft. Prior to the total occlusion, there is a very large diagonal system that has 90+ percent stenosis at the ostium. 3. Left circumflex has total occlusion in the mid vessel. 4. Vein graft to circumflex is widely patent. 5. Right coronary has total occlusion proximally. 6. Vein graft to the right coronary is widely patent. PTCA STENT OF THE LAD DIAGONAL: The stent used was a 2.25 x 18 mm [place]. Result was 0% residual stenosis. OVERALL IMPRESSION: Successful percutaneous transluminal coronary angioplasty stent of the left anterior descending diagonal going from 90% initial stenosis to 0% residual. TRANSINT:[id number] Voice Confirmation ID: [id number] DOCUMENT ID: [id number] OPERATIVE REPORT [id number] TYLOR PARKER JEFFREY MD at 1354 CC: [id number] DICTATION DATE: 12/13/16 1312 NETWORK DIRECTOR: 12/13/16 1729 [place] [address]
--- NOTE | 2016-12-15 14:27 | NUR ---
TOTAL LINEN CHANGE AND BED BATH, STOOL APPEARED BLOODY, SENT TO LAB, BLOODWORK DRAWN PER ORDERS VIA CVL, PT ALERT, FOLLOWS OBJECTS WITH EYES BUT CONTIUES TO NOT RESPOND TO DIRECTIONS
[2016-12-15 14:32] LABS: HEMATOCRIT 24.8 % (42.0-54.0); HEMOGLOBIN 7.8 g/dL (13.5-17.5); MCH 28.3 pg (26.0-34.0); MCHC 31.5 g/dL (31.0-37.0); MCV 89.9 fL (80.0-100.0); MEAN PLATELET VOLUME 12.9 fL (7.4-10.4); RBC 2.76 10x6/uL (4.20-6.10); RDW 17.1 % (11.5-14.5); WBC 25.9 10x3/uL (4.8-10.8)
[2016-12-15 14:55] LABS: APTT 32.2 SECONDS (22.8-39.4); INR 1.28 (0.85-1.17); PROTIME 15.9 SECONDS (11.6-15.0)
[2016-12-15 14:56] LABS: D-DIMER-QUANTITATIVE 3.59 ug/mLFEU (0.20-0.54)
--- NOTE | 2016-12-15 15:18 | NUR ---
SPOKE WITH DR CORNEJO AND DR WATT CONCERNING GI CONSULT AND LAB RESULTS, NEW ORDERS TO TRANSFUSE 2 UNITS OF BLOOD, CON TINUE WITH PLAVIX AND HOLD LOVONOX FOR 3 DAYS, SPOKE WITH PT SISTER, BLOOD CONSENT RECIEVED PREVIOUSLY, VSS WILL CON TINUE TO MONITOR
--- NOTE | 2016-12-15 15:41 | NUR ---
SPOKE WITH DIANA AT DR. VILLASENOR'S DIGITAL MARKETING PROJECT MANAGER TO INFORM OF CONSULT, " I WILL GIVE HER HIS INFORMATION, AND INFORM HER OF THE CONSULT."
--- NOTE | 2016-12-15 16:24 | NUR ---
SPOKE WITH DR GOODRICH CONCERNING BLEEDING, NO NEW ORDERS
--- NOTE | 2016-12-15 17:42 | NUR ---
DR VILLASENOR AND DR CONTI SEEN PT, SPOKE WITH ANG ZELAYA IN CARDIO NEURO REGUARDING EEG ORDER, STATED WILL DO FIRST THING IN THE MORNING, ASKED DR CONTI IF PT COULD RESUME PROPOFOL AND HE AGREED, WILL BE KEPT TO MINIMUM, RESTARTED, WILL START PROTONIX DRIP PER DR WATT, VSS, CONTNINUES WITH DARK BLOODY STOOL. LINENS CHANGED ORAL CARE AND BATH PROVIDED,. WILL CONTINUE TO MONITOR
--- NOTE | 2016-12-15 18:35 | NUR ---
PROTONIX DRIP INITIATED PER EMAR, BLOOD INFUSING, NO ADVERSE REACTIONS NOTED, VSS, WILL CONTINUE TO MONITOR
--- NOTE | 2016-12-15 19:15 | NUR ---
REPORT RECIEVED, SHIFT ASSESSMENT COMPLETE, PT IS SEDATED ON VENT, OPENS EYES, DOES NOT FOLLOW COMMANDS, ON 40% FIO2 WITH 98% O2 SAT. CRACKLES HEARD IN B/L UPPER LOBES, DIMINISHED IN B/L LOWER LOBES, S1S2, PATENT OGT WITH PULMOCARE INFUSING VIA PUMP, 10 RESIDUAL NOTED, PATENT LEFT SC CVL....SEE FLOW SHEET, ABDOMEN IS DISTENDED WITH ACTIVE BS, PATENT F/C WITH CONCENTRATED UOP, EDEMA NOTED IN ALL EXTREMETIES, ALL PPP, VSS, WILL CON'T TO MONITOR
--- NOTE | 2016-12-15 21:25 | NUR ---
HS MEDS GIVEN, NO VISITORS AT THIS TIME,
--- NOTE | 2016-12-15 23:15 | NUR ---
REASSESSMENT COMPLETE, NO CHANGES NOTED, PT REPOSITIONED FOR COMFORT, ORAL CARE PROVIDED, VSS, WILL CON'T TO MONITOR
[2016-12-16] VITALS (25 sets, daily range): BP systolic 98–129; BP diastolic 42–73
--- NOTE | 2016-12-16 01:00 | NUR ---
REPOSITIONED FOR COMFORT, ORAL CARE PROVIDED,
--- NOTE | 2016-12-16 03:30 | NUR ---
REASSESSMENT COMPLETE, NO CHANGES NOTED, PT RESTING AT THIS TIME, REPOSITIONED FOR COMFORT, ORAL CARE PROVIDED,
[2016-12-16 04:08] LABS: BASOPHILS 0 % (0-2); EOSINOPHILS 0 % (0-7); HEMATOCRIT 26.8 % (42.0-54.0); HEMOGLOBIN 8.6 g/dL (13.5-17.5); IMMATURE GRANULOCYTES 0.7 % (0-5); LYMPHOCYTES 3.8 % (15-50); MCHC 32.1 g/dL (31.0-37.0); MCV 87.3 fL (80.0-100.0); MEAN PLATELET VOLUME 13.3 fL (7.4-10.4); MONOCYTES 5.2 % (2-11); NEUTROPHILS 90.3 % (40-80); PLATELET COUNT 196 10x3/uL (130-400); RBC 3.07 10x6/uL (4.20-6.10); RDW 17.6 % (11.5-14.5); WBC 23.7 10x3/uL (4.8-10.8)
[2016-12-16 04:40] LABS: CALC OSMOLALITY 317 mosm/kg (275-300); CALCIUM 7.9 mg/dL (8.5-10.1); CARBON DIOXIDE 23.1 mmol/L (21.0-32.0); CHLORIDE - SERUM 112 mmol/L (98-107); GLUCOSE 226 mg/dL (74-106); MAGNESIUM - SERUM 2.4 mg/dL (1.8-2.4); POTASSIUM - SERUM 4.3 mmol/L (3.5-5.1); SODIUM 145 mmol/L (136-145); eGFR NON AFRICAN AMERICAN 79 mL/min (90-120)
[2016-12-16 04:42] LABS: UREA NITROGEN 73 mg/dL (7-18)
--- NOTE | 2016-12-16 05:00 | NUR ---
COMPLETE BATH AND LINEN CHANGE, PT TOLERATED WELL
--- NOTE | 2016-12-16 07:00 | NUR ---
PT REPORT REC'D, PT CARE ASSUMED. PT SEDATED ON VENT, DOES NOT FOLLOW COMMANDS. PT DOES MOVE LEGS, NOT ON COMMAND. NGT, ETT, VSS. LEFT SUBCLAVIAN CVL WITH FLUIDS INFUSING, SEE FLOW SHEET, DRESSING CDI. LEFT UPPER ARM PICC S/L'ED, DRESSING CDI. DANIELLE CATHETER FREE OF KINKS TO GRAVITY WITH CONCENTRATED YELLOW URINE RETURN. REPOSITIONED PT, PROPPED WITH PILLOWS. SCD'S. SHIFT ASSESSMENT COMPLETED, SEE FLOW SHEET. ROOM FREE OF CLUTTER, CALL LIGHT IN REACH, BED ALARM ACTIVE, WILL CONTINUE TO MONITOR PT.
--- NOTE | 2016-12-16 08:00 | NUR ---
PAGED VOISE TO INFORM OF HGB BEING 8, AWAITING CALL BACK.
--- NOTE | 2016-12-16 08:29 | NUR ---
EEG TECHS AT THE BEDSIDE, PROPOFOL TURNED OFF FOR EEG, VSS, WILL CONTINUE TO MONITOR PT.
--- NOTE | 2016-12-16 09:00 | NUR ---
REPOSITIONED PT, PROPPED WITH PILLOWS VSS, WILL CONTINUE TO MONITOR PT.
--- NOTE | 2016-12-16 09:15 | NUR ---
DR. VILLASENOR AT THE BEDSIDE, VSS, WILL CONTINUE TO MONITOR PT.
--- NOTE | 2016-12-16 09:36 | NUR ---
NUTRITION MONITORING & EVAL CHART REVIEWED, PT REMAINS ON VENT IN ISOLATION. PULMOCARE CURRENTLY ON HOLD FOR POSSIBLE PROCEDURE. RD FOLLOWING
--- NOTE | 2016-12-16 09:42 | NUR ---
DR. CORNEJO AT THE BEDSIDE
--- NOTE | 2016-12-16 09:45 | NUR ---
PT HAD MEDIUM SIZED, DARK DIARRHEA, COMPLETE BED BATH, AND LINEN CHANGE, VSS, WILL CONTINUE TO MONITOR PT.
--- NOTE | 2016-12-16 11:00 | NUR ---
PT SEDATED ON VENT, REPOSITIONED PT, PROPPED WITH PILLOWS, VSS, REASSESSMENT COMPLETED, SEE FLOW SHEET. ROOM FREE OF CLUTTER, CALL LIGHT IN REACH, BED ALARM ACTIVE, BED LOCKED IN LOWEST POSITION, WILL CONTINUE TO MONITOR PT.
--- NOTE | 2016-12-16 11:30 | NUR ---
BEGAN INFUSING FIRST UNIT OF PRBC'S, WILL CONTINUE TO MONITOR PT.
--- NOTE | 2016-12-16 12:15 | NUR ---
NOTIFIED DR. SINGH OF CONSULT FOR PEG AND TRACH PLACEMENT. "WILL BE THERE LATER." SPOKE WITH PTS ELDEST SON, TYLOR PARKER, "IT IS OKAY TO DO THE PROCEDURES, ANY THING TO GET HIM WELL."
--- NOTE | 2016-12-16 12:21 | NUR ---
DR. WATT AT THE BEDSIDE SPEAKING WITH FAMILY, ALL QUESITONS ANSWERED, VSS, PLANS TO DO EGD. WILL CALL PTS SON FOR CONSENT.
--- NOTE | 2016-12-16 12:23 | NUR ---
CALLED TYLOR PARKER JR, PTS ELDEST SON FOR CONSENT FOR EGD, BLANCHE RICHARDSON RN WITNESS, WILL CONTINUE TO MONITOR PT.
--- NOTE | 2016-12-16 14:00 | NUR ---
BEGAN INFUSING 2ND UNIT OF PRBC'S, VSS, WILL CONTINUE TO MONITOR PT.
--- NOTE | 2016-12-16 14:05 | NUR ---
AT THE BEDSIDE FOR PEG PLACEMENT
--- NOTE | 2016-12-16 14:15 | NUR ---
PEG TUBE ATTACHED TO DRAINAGE BAG TO GRAVITY, WILL CONTINUE TO MONITOR PT.
--- NOTE | 2016-12-16 15:00 | NUR ---
REPOSITIONED PT, PROPPED WITH PILLOWS, VSS, REASSESSMENT COMPLETED, SEE FLOW SHEET. ROOM FREE OF CLUTTER, CALL LIGHT IN REACH, WILL CONTINUE TO MONITOR PT.
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
--- NOTE | 2016-12-16 15:32 | NUR ---
PT FAMILY AT THE BEDSIDE, ALL QUESTIONS ANSWERED. PTS SISTER REQUESTING "PLEASE TELL THE NEUROLOGIST THAT MY BROTHER IS BIPOLAR, AND WHEN YOU GET THE EEG RESULTS, PLEASE CALL ME."
--- NOTE | 2016-12-16 16:00 | NUR ---
DR. WATT AT THE BEDSIDE, VS, WILL CONTINUE TO MONITOR PT.
--- NOTE | 2016-12-16 16:30 | NUR ---
2ND UNIT OF PRBC'S FINISHED INFUSING, SEE FLOW SHEET. PT TOLERATED WELL, WILL CONINTUE TO MONITOR PT.
--- NOTE | 2016-12-16 18:00 | NUR ---
PTS STEP DAUGHTER AT THE BEDSIDE, DID NOT HAVE PASSWORD, UNABLE TO GIVE UPDATE OF PT, WILL CONTINUE TO MONITOR PT.
--- NOTE | 2016-12-16 19:15 | NUR ---
REPORT RECIEVED, SHIFT ASSESSMENT COMPLETE, PT IS SEDATED IN VENT, ON 40% FIO2 WITH 95% O2 SAT. CRACKLES HEARD IN B/L UPPER LOBES, DIMINISHED IN B/L LOWER LOBES, S1S2, CM-ST, PATENT LEFT SC CVL...SEE IV FLOW SHEET...ABDOME IS DISTENDED WITH ACTIVE BS, PEG TUBE TO GRAVITY, PATENT F/C WITH CONCENTRATED UOP, EDEMA NOTED IN ALL EXTRMETIES, ALL PPP, VSS, WILL CON'T TO MONITOR
[2016-12-16 19:29] LABS: HEMATOCRIT 28.3 % (42.0-54.0); HEMOGLOBIN 9.5 g/dL (13.5-17.5); MCH 29.2 pg (26.0-34.0); MCHC 33.6 g/dL (31.0-37.0); MCV 87.1 fL (80.0-100.0); MEAN PLATELET VOLUME 12.7 fL (7.4-10.4); RBC 3.25 10x6/uL (4.20-6.10)
--- NOTE | 2016-12-16 20:46 | NUR ---
UPDATE GIVEN TO FAMILY OVER PHONE, PASSWORD GIVEN
--- NOTE | 2016-12-16 23:10 | NUR ---
REASSESSMENT COMPLETE, NO CHANGES NOTED, PT RESTING COMFORTABLY AT THIS TIME, REPOSITIONED FOR COMFORT, ORAL CARE PROVIDED,
[2016-12-17] VITALS (25 sets, daily range): BP systolic 90–152; BP diastolic 47–75
--- NOTE | 2016-12-17 01:15 | NUR ---
REPOSITIONED FOR COMFORT, ORAL CARE PROVIDED,
--- NOTE | 2016-12-17 03:00 | NUR ---
REASSESSMENT COMPLETE, NO CHANGES NOTED, WILL CON'T TO MONITOR
[2016-12-17 03:50] LABS: BASOPHILS 0 % (0-2); EOSINOPHILS 0 % (0-7); IMMATURE GRANULOCYTES 0.7 % (0-5); LYMPHOCYTES 2.8 % (15-50); MCH 29.4 pg (26.0-34.0); MCHC 33.3 g/dL (31.0-37.0); MCV 88.2 fL (80.0-100.0); MEAN PLATELET VOLUME 12.9 fL (7.4-10.4); NEUTROPHILS 93.5 % (40-80); PLATELET COUNT 174 10x3/uL (130-400); RBC 3.06 10x6/uL (4.20-6.10); RDW 17.2 % (11.5-14.5); WBC 31.1 10x3/uL (4.8-10.8)
[2016-12-17 03:58] LABS: ANION GAP 15.5 mmol/L (8-16); CALCIUM 7.7 mg/dL (8.5-10.1); CARBON DIOXIDE 22.1 mmol/L (21.0-32.0); CREATININE - SERUM 1.4 mg/dL (0.6-1.3); MAGNESIUM - SERUM 2.4 mg/dL (1.8-2.4); POTASSIUM - SERUM 4.6 mmol/L (3.5-5.1)
--- NOTE | 2016-12-17 05:30 | NUR ---
LG BLOODY STOOL AT THIS TIME, PARTIAL LINEN CHANGE
--- NOTE | 2016-12-17 11:59 | NUR ---
GO LITELY GIVEN PER PEG. PT DID HAVE LG AMT OF LIQUID STOOL.PT CLEANED AND LINENS CHANGED. GI LAB HERE AT PRESENT.
--- NOTE | 2016-12-17 12:53 | NUR ---
COLONOSCOPY COMPLETE, PT MARVEL WELL. FAMILY NOT AVAIL;ABLE IN ICU WAITING AT PRESENT.
--- NOTE | 2016-12-17 14:05 | NUR ---
PERC TRACH DONE AT BS BY DR SINGH, ANESTHESIA AT BS. PT MARVEL WELL. VSS, VENT SETTINGS PER RT. PT POSITIONED FOR COMFORT.
--- NOTE | 2016-12-17 18:38 | NUR ---
PT INC OF SM AMT LOOSE STOOL. BATH AND COMPLETE LINEN CHANGE DONE. PT MARVEL WELL.
--- NOTE | 2016-12-17 23:30 | NUR ---
1929- REPORT RECVD. CARE ASSUMED. INITIAL ASSMNT COMPLETED. SEE FLOWSHEET FOR ALL FINDINGS. SEDATED ON MECH VENT VIA FRESH TRACH. SIMV SETTINGS. SPO2 95% ON FIO2 45%. LUNGS WITH RALES THRU OUT. DIM IN BASES. SR ON THE MONITOR. PULSES PALP. AFEBRILE. SCDS ON. ABD SOFT WITH HYPO BS. PEG TUBE TO GRAVITY. F/C PATENT WITH IGGY UOP. TURNED AND REPOSITIONED. ORAL CARE PER BRIDGE ATTACHER. RESTRAINTS PER PROTOCOL. CONT CURRENT POC. MEDS GIVEN VIA PEG. FLUSHED PRE AND POST MED. PATENT. CLAMPED AT THIS TIME. 2329- REASSESSMENT COMPLETED. SEE FLOWSHEET FOR ALL ALL FINDINGS. SEDATED ON MECH VENT VIA FRESH TRACH. SIMV SETTINGS. SPO2 95% FIO2 45%. LUNGS WITH RALES THRU OUT. DIM IN BASES. SR ON THE MONITOR. PULSES PALP. AFEBRILE. SCDS ON. ABD SOFT WITH HYPO BS. PEG TUBE TO GRAVITY. F/C PATENT WITH IGGY UOP. TURNED AND REPOSITIONED. ORAL CARE PER BRIDGE ATTACHER. RESTRAINTS PER PROTOCOL. CONT CURRENT POC.
[2016-12-18] VITALS (24 sets, daily range): BP systolic 106–147; BP diastolic 7–84
--- NOTE | 2016-12-18 01:10 | NUR ---
TURNED AND REPOSITIONED. ORAL CARE PER VAP. SEDATED. TRACH PATENT AND SECURED. HOB UP. VSS. CONT CURRENT POC.
[2016-12-18 04:53] LABS: CALCIUM 8.3 mg/dL (8.5-10.1); CARBON DIOXIDE 22.2 mmol/L (21.0-32.0); CHLORIDE - SERUM 113 mmol/L (98-107); MAGNESIUM - SERUM 2.5 mg/dL (1.8-2.4); SODIUM 142 mmol/L (136-145); UREA NITROGEN 61 mg/dL (7-18)
[2016-12-18 04:54] LABS: CALC OSMOLALITY 303 mosm/kg (275-300); CREATININE - SERUM 0.9 mg/dL (0.6-1.3); GLUCOSE 171 mg/dL (74-106); POTASSIUM - SERUM 3.1 mmol/L (3.5-5.1); eGFR NON AFRICAN AMERICAN 89 mL/min (90-120)
[2016-12-18 05:14] LABS: BASOPHILS 0 % (0-2); EOSINOPHILS 0 % (0-7); HEMATOCRIT 27.4 % (42.0-54.0); HEMOGLOBIN 9.1 g/dL (13.5-17.5); IMMATURE GRANULOCYTES 0.6 % (0-5); LYMPHOCYTES 3.3 % (15-50); MCH 29.4 pg (26.0-34.0); MCHC 33.2 g/dL (31.0-37.0); MCV 88.7 fL (80.0-100.0); MEAN PLATELET VOLUME 12.7 fL (7.4-10.4); MONOCYTES 3.4 % (2-11); NEUTROPHILS 92.7 % (40-80); PLATELET COUNT 176 10x3/uL (130-400); RBC 3.09 10x6/uL (4.20-6.10); RDW 17.5 % (11.5-14.5); WBC 28.5 10x3/uL (4.8-10.8)
--- NOTE | 2016-12-18 05:15 | NUR ---
BM NOTED. BATH GIVEN LINENS CHANGED. REPOSITIONED. RT AT BEDSIDE. TRACH INTACT. VSS. HOB UP. CONT CURRENT POC.
--- NOTE | 2016-12-18 07:55 | NUR ---
LYING IN BED AT THIS TIME. NO ACUTE DISTRESS NOTED. PT ON FRESH TRACH PRECAUTIONS. OPENS EYES SPONTANEOUSLY. WILL CONTINUE PLAN OF CARE.
--- NOTE | 2016-12-18 09:54 | NUR ---
NO ACUTE DISTESS NOTED. PEG TO GRAVITY, DRAINAGE NOTED DARK GREEN. WILL CONTINUE PLAN OF CARE.
--- NOTE | 2016-12-18 11:53 | NUR ---
NO CHANGE. NO ACUTE DISTRESS NOTED. IS ON FRESH TRACH PRECAUTIONS. REPOSITIONED Q2H WITH ASSIST FROM RESPIRATORY THERPAY PER TRACH PRECAUTIONS. WILL CONTINUE PLAN OF CARE.
--- NOTE | 2016-12-18 13:25 | NUR ---
NOTED PT POTASSIUM LOW THIS AM. NOTFIED GI UPON ROUNDING, STATED TO VERIFY WITH RENAL IF OKAY TO PLACE PT ON ELECTROLYTE PROTOCOL. SPOKE WITH RENAL FIELD ADVISOR NOTED OKAY TO START ELECTROLYTE PROTOCOL. WILL PLACE ORDERS.
--- NOTE | 2016-12-18 13:43 | NUR ---
PER DR MCKEON, RESTART TF. WILL RESTART TF AT THIS TIME.
--- NOTE | 2016-12-18 15:27 | NUR ---
PTS IN ROOM, UPDATE GIVEN. NO ACUTE DISTRESS NOTED. WILL CONTINUE PLAN OF CARE.
--- NOTE | 2016-12-18 17:15 | NUR ---
NO ACUTE DISTRESS NOTED. NOTED SMEAR BM WHILE TURNING PT AFTER COUGHING. CLEANED UP VIA TOTAL ASSIST X 2 PERSON. PT IS ON TRACH PRECAUTIONS. NO ACUTE DISTRESS NOTED. WILL CONTINUE PLAN OF CARE.
--- NOTE | 2016-12-18 23:15 | NUR ---
1929- REPORT RECVD. CARE ASSUMED. INITIAL ASSMNT COMPLETED. SEE FLOWSHEET FOR ALL FINDINGS. SEDATED ON MECH VENT VIA FRESH TRACH. SIMV SETTINGS. SPO2 95% ON FIO2 40%. LUNGS WITH RALES THRU OUT. DIM IN BASES. SR ON THE MONITOR. PULSES PALP. AFEBRILE. SCDS ON. ABD SOFT WITH HYPO BS. PEG TUBE TO GRAVITY. F/C PATENT WITH IGGY UOP. TURNED AND REPOSITIONED. ORAL CARE PER TRACK WALKER. RESTRAINTS PER PROTOCOL. CONT CURRENT POC. 2129- MEDS GIVEN VIA PEG. FLUSHED PRE AND POST MED. PATENT. CLAMPED AT THIS TIME. VSS. TURNED AND REPOSITIONED. CONT CURRENT POC. 2329- REASSESSMENT COMPLETED. SEE FLOWSHEET FOR ALL ALL FINDINGS. SEDATED ON MECH VENT VIA FRESH TRACH. SIMV SETTINGS. SPO2 95% FIO2 40%. LUNGS WITH RALES THRU OUT. DIM IN BASES. SR ON THE MONITOR. PULSES PALP. AFEBRILE. SCDS ON. ABD SOFT WITH HYPO BS. PEG TUBE TO GRAVITY. F/C PATENT WITH IGGY UOP. TURNED AND REPOSITIONED. ORAL CARE PER VAP. RESTRAINTS PER PROTOCOL. CONT CURRENT POC.
[2016-12-19] VITALS (23 sets, daily range): BP systolic 98–151; BP diastolic 49–93
--- NOTE | 2016-12-19 01:05 | NUR ---
ORAL CARE PER VAP. VSS. NO SIG CHANGES. CONT CURRENT POC.
--- NOTE | 2016-12-19 03:30 | NUR ---
REASSESSMENT COMPLETED. SEE FLOWSHEET FOR ALL ALL FINDINGS. SEDATED ON MECH VENT VIA FRESH TRACH. SIMV SETTINGS. SPO2 95% FIO2 40%. LUNGS WITH RALES THRU OUT. DIM IN BASES. SR ON THE MONITOR. PULSES PALP. AFEBRILE. SCDS ON. ABD SOFT WITH HYPO BS. PEG TUBE TO GRAVITY. F/C PATENT WITH IGGY UOP. TURNED AND REPOSITIONED. ORAL CARE PER VAP. RESTRAINTS PER PROTOCOL. CONT CURRENT POC.
[2016-12-19 04:36] LABS: BASOPHILS 0 % (0-2); EOSINOPHILS 0 % (0-7); HEMATOCRIT 29.3 % (42.0-54.0); HEMOGLOBIN 9.6 g/dL (13.5-17.5); IMMATURE GRANULOCYTES 0.6 % (0-5); LYMPHOCYTES 3.2 % (15-50); MCH 29.5 pg (26.0-34.0); MCHC 32.8 g/dL (31.0-37.0); MCV 90.2 fL (80.0-100.0); MEAN PLATELET VOLUME 13.2 fL (7.4-10.4); MONOCYTES 3.9 % (2-11); NEUTROPHILS 92.3 % (40-80); PLATELET COUNT 177 10x3/uL (130-400); RBC 3.25 10x6/uL (4.20-6.10); RDW 18.2 % (11.5-14.5); WBC 23.5 10x3/uL (4.8-10.8)
[2016-12-19 04:39] LABS: CALC OSMOLALITY 310 mosm/kg (275-300); CALCIUM 8.2 mg/dL (8.5-10.1); CARBON DIOXIDE 24.9 mmol/L (21.0-32.0); CHLORIDE - SERUM 114 mmol/L (98-107); CREATININE - SERUM 0.8 mg/dL (0.6-1.3); GLUCOSE 172 mg/dL (74-106); MAGNESIUM - SERUM 2.2 mg/dL (1.8-2.4); POTASSIUM - SERUM 3.7 mmol/L (3.5-5.1); SODIUM 148 mmol/L (136-145); UREA NITROGEN 50 mg/dL (7-18); eGFR NON AFRICAN AMERICAN > 90 mL/min (90-120)
--- NOTE | 2016-12-19 05:00 | NUR ---
TURNED AND REPOSITIONED WITH RT AT BEDSIDE,. ORAL CARE. VSS. HOB UP. CONT CURRENT POC.
--- NOTE | 2016-12-19 05:15 | NUR ---
TURNED AND REPOSITIONED. ORAL CARE PER VAP. VSS. CONT CURRENT POC.
--- NOTE | 2016-12-19 09:41 | OP ---
PATIENT NAME: TYLOR PARKER MEDICAL RECORD: [id number] :46 LOCATION:[facility] D.[id number] ADMISSION DATE:12/03/16 SURGEON: IVA SINGH MD DATE OF OPERATION: 12/17/2016 PREOPERATIVE DIAGNOSIS: Vent-dependent respiratory failure. POSTOPERATIVE DIAGNOSIS: Vent-dependent respiratory failure. PROCEDURE PERFORMED: 1. Bronchoscopy. 2. Percutaneous tracheostomy. ANESTHESIA: Total intravenous anesthesia. COMPLICATIONS: None. SPECIMENS: None. Case was contaminated. ESTIMATED BLOOD LOSS: 20 cc. OPERATIVE COURSE: After consent was obtained, the patient was placed in the supine position in the ICU bed. A timeout was taken to confirm the correct patient and procedure. The patient's neck was prepped and draped in typical sterile fashion. Local anesthetic was administered. A small vertical midline incision was made. The bronchoscope was inserted through the endotracheal tube. The balloon was deflated. The endotracheal tube was slowly backed away until the light was visibly transilluminating the trachea. At that time, the needle Angiocath were percutaneously placed into the trachea under direct laparoscopic vision and guidewire was placed. The dilator was then passed over the wire in standard Seldinger fashion. The tract was serially dilated until an 8-Qatari tracheostomy tube was inserted in the airway. The balloon was inflated and the ventilator circuit was immediately flipped over with adequate end tidal CO2. A bronchoscopy was performed to confirm placement within the trachea. The trachea was aspirated and suctioned. At this time, the bronchoscope was removed. The tracheostomy device was sutured to the skin with #1 Prolene suture and a Holter strap was placed. At the end of the case, all needle and instrument counts were correct. No complications occurred. The patient remained in the ICU in stable condition. TRANSINT:[id number] Voice Confirmation ID: [id number] DOCUMENT ID: [id number] IVA SINGH MD at 0941 CC: [id number] DICTATION DATE: 12/17/16 1346 HEEL COVERER MACHINE OPERATOR: 12/17/16 2153 [place] [address]
--- NOTE | 2016-12-19 17:14 | NUR ---
0700 REVEIVED PT LAYING IN BED EYES CLOSED SEDATED ON VENT. FRESH TRACH PROTOCOL, LINES CHANGED PT TURNED, CREAM APPLIED TO BUTTOCK WITH REDNESS AND EXCORIATED SKIN NOTED. NO ACTIVE BLEEDING NOTED AROUND TRACH RT IN ROOM FOR TURN, REDNNESS NOTED TO RIGHT HEEL FOAM DRESSING AND KERLIX APPLIED FOR PROTECTION HEELS ELEVATED. TOLERATING TF 0 RESIDUAL NOTED INCRESED TO 30 ML/HR. SEE INITAIL ASSESMENT 0900 NO CHANGES NO DISTRESS NOTED, TURNED AND REPOSITONED SCD'S APPLIED, VSS 0945 RT CHANGED TO CPAP, DIPROVAN OFF 1100 SEE ASSESSMENT, NO DISTRESS NOTED, NO CHANGED MD'S IN UNIT FOR ROUNDS, CONTINUES ON CPAP 1445 TURNED BACK ON SIMV AND DIPROVAN STARTED BACK AT 10MCG, NO DISTRESS NOTED, VSS 1700 NO CHANGES, REMAINS CALM ON VENT, ON DIPROVAN ALL TUBING CHANGED OUT.
--- NOTE | 2016-12-19 19:20 | NUR ---
SHIFT ASSESSMENT COMPLETE. PT IS UNABLE TO FOLLOW COMMANDS. SEDATED, OPENS EYES SPONTANEOUSLY. MUCOUS MEMBRANES DRY, ORAL CARE PROVIDED. TRACH SIZE 8. DRIED BLOOD ON DRESSING. VENT SETTINGS: SIMV, RR-6, TIDAL VOLUME 600, P SUPPORT 10, FIO2 40%, PEEP 5.0. SUCTIONED LAROSE THICK SPUTUM. S1S2 AUDIBLE.HR 78 NORMAL SINUS VIA TELEMETRY. CRACKLES HEARD BILAT THROUGHOUT ALL LOBES. G TUBE DRESSING CDI. 5 ML RESIDUAL. PULMOCARE @ 40 ML/HR. CVL DRESSING TO L SUBCLAVIAN CDI. DIPRIVAN @ 10 ML/HR, D5+1/2 NS @ 75 ML/HR. RADIAL AND PEDAL PULSES PALP. PINK AND COOL SKIN. SLIGHT BRUISING ON L ABD. ABD SOFT, BS ACTIVE IN ALL QUADS. DANIELLE CATH DRAINING DARK CONCENTRATED URINE. WRIST RESTRAINTS AND SCD'S RELEASED AND SKIN ASSESSED, WNL. BUTTOCKS & R HEEL HAVE REDDEND AREA. R HEEL HAS GAUZE WRAPPED AROUND IT FOR CUSHION. SHEET COVERING PT, TEMP WNL. BED IN LOWEST POSITION. WILL CONTINUE TO MONITOR.
--- NOTE | 2016-12-19 21:00 | NUR ---
REPOSITIONED PT FOR COMFORT. ORAL CARE PROVIDED. PT STILL UNABLE TO FOLLOW COMMANDS. SUCTIONED THICK LAROSE SPUTUM. VSS. BED IN LOWEST POSITION. WILL CONT WITH POC.
--- NOTE | 2016-12-19 23:00 | NUR ---
REASSESSMENT COMPLETE. PT'S MOUTH VERY DRY. ORAL CARE PROVIDED. SUCTIONED LAROSE THICK SPUTUM. CRACKLES HEARD BILAT THROUGHOUT ALL LOBES. BS ACTIVE X4. 5 CC RESIDUAL TF. RADIAL AND PEDAL PULSES PALP. REPOSITIONED WITH RESP AT BEDSIDE. BED IN LOWEST POSITION. WILL CONT WITH POC.
[2016-12-20] VITALS (20 sets, daily range): BP systolic 103–145; BP diastolic 62–85
--- NOTE | 2016-12-20 01:36 | NUR ---
PT UNABLE TO FOLLOW SIMPLE COMMANDS AT THIS TIME. INCREASED TF TO 50 ML/HR. RESIDUAL 5CC. BS ACTIVE IN ALL QUADS. STOMACH IS SOFT. REPOSITIONED FOR COMFORT. BED IN LOWEST POSITION. PT IN SIGHT OF NURSE'S STATION.
--- NOTE | 2016-12-20 03:00 | NUR ---
REASSESSMENT COMPLETE. PT HAD WATERY BOWEL MOVEMENT. DANIELLE CARE PROVIDED. PARTIAL LINEN CHANGE. CHIQUI'S BUTT PASTE APPLIED TO BUTTOCKS. REPOSITONED OFF OF BUTTOCKS. FEET BRIDGED. ORAL CARE PROVIDED. WILL CONT TO MONITIOR.
--- NOTE | 2016-12-20 05:15 | NUR ---
ORAL CARE PROVIDED. REPOSITONED FOR COMFORT. 7 CC RESIDUAL ON TF. KEPT TF AT 50 ML/HR. BS ACTIVE IN ALL QUADS. BED IN LOWEST POSITION. WILL CONT TO MONITOR.
[2016-12-20 05:16] LABS: BASOPHILS 0.1 % (0-2); EOSINOPHILS 0 % (0-7); HEMATOCRIT 28.3 % (42.0-54.0); HEMOGLOBIN 8.9 g/dL (13.5-17.5); IMMATURE GRANULOCYTES 0.5 % (0-5); LYMPHOCYTES 2.9 % (15-50); MCH 28.4 pg (26.0-34.0); MCHC 31.4 g/dL (31.0-37.0); MCV 90.4 fL (80.0-100.0); MEAN PLATELET VOLUME 13.1 fL (7.4-10.4); MONOCYTES 2.7 % (2-11); NEUTROPHILS 93.8 % (40-80); PLATELET COUNT 170 10x3/uL (130-400); RBC 3.13 10x6/uL (4.20-6.10); RDW 18.1 % (11.5-14.5); WBC 17.9 10x3/uL (4.8-10.8)
[2016-12-20 05:24] LABS: CALC OSMOLALITY 308 mosm/kg (275-300); CARBON DIOXIDE 22.1 mmol/L (21.0-32.0); CHLORIDE - SERUM 112 mmol/L (98-107); CREATININE - SERUM 0.9 mg/dL (0.6-1.3); GLUCOSE 251 mg/dL (74-106); MAGNESIUM - SERUM 2.2 mg/dL (1.8-2.4); POTASSIUM - SERUM 4.3 mmol/L (3.5-5.1); SODIUM 144 mmol/L (136-145); UREA NITROGEN 51 mg/dL (7-18); eGFR NON AFRICAN AMERICAN 89 mL/min (90-120)
--- NOTE | 2016-12-20 07:00 | NUR ---
SHIFT ASSESSMENT COMPLETTED, PT SEDATED ON VENT, VSS, TRACH IN PLACE, CDI, PULMOCARE AT 50, NO RESIDUAL, G TUBE IN PLACE PER ASPRIATION AUSCULTATION, CONTINUES ON ISOLATION FOR CDIFF, REPOSITIONED, WILL CONTINUE TO MONITOR
--- NOTE | 2016-12-20 09:00 | NUR ---
PT RESPOSITIONED, PULMOCARE GRADUALLY INCREASED TO TARGET RATE OF 60ML/HR, NO RESIDUAL, VSS, WILL CONTINUE TO MONITOR
--- NOTE | 2016-12-20 10:07 | NUR ---
NUTRITION MONITORING & EVAL CHART REVIEWED. PT REMAINS IN ISOLATION. TRACH AND PEG. TOLERATING PULMOCARE AT GOAL RATE 60 CC/HR. RD FOLLOWING
--- NOTE | 2016-12-20 10:54 | NUR ---
PT VENT SETTINGS CHANGED TO CPAP PER DUNIA GARCIA, REPOSITIONED, WILL CONTINUE TO MONITOR
--- NOTE | 2016-12-20 11:10 | NUR ---
PROPOFOL ALSO STOPPED PER BRENDA VSS, WILL CONTINUE TO MONITOR
--- NOTE | 2016-12-20 13:00 | NUR ---
PY SUCTIONED, REPOSITIONED, ORAL CARE PROVIDED, VSS, WILL CONTINUE TO MONITOR
--- NOTE | 2016-12-20 15:00 | NUR ---
PT REPOSITIONED, VSS, DOES NOT FOLLOW COMMANDS OR FOCUS WITH EYES, PUPILS REACTIVE, VSS, WILL CONTINUE TO MONITOR
--- NOTE | 2016-12-20 17:00 | NUR ---
PT REPOSITIONED ORAL CARE AND SUCTIONING PROVIDED, VSS, CONTINUES OFF OF SEDATION, MOVES EXTREMETIES BUT DOES NOT ATTEMPT TO COMMUNICATE OR FOLLOW COMMANDS, WILL CONTINUE TO MONITOR
--- NOTE | 2016-12-20 20:57 | NUR ---
Received patient laying in bed on Vent, Assessment completed per flowsheet. Patient opens eyes spontaneously but does not follow commands, no verbal/motor response. Eyes PERRLA @ 4mm with brisk response, sclera is white with clear drainage noted. Trach 8.0 secured, dressing with old blood noted. S1/S2 noted NSR on telemetry with HR 74, rhythmic and regular. Crackles noted bilateral upper and mid with diminished lower, Vent settings SIMV R-6 V-600 40% P-5 PS-10 via Trach. Abdomen is distended and soft with bowel sounds active x4. Loya secured in place with concentrated yellow urine noted. All pulses palpable with limbs flaccid, cap refill < 3 sec. SCD in use, removed and replaced for inspection. Pressure ulcer noted coccyx/buttocks 6cm x 6cm x 0mm, cleaned and barrier cream applied. Unable to assess pain, oral care/suctioning provided. Repositioned for comfort, no further needs at this time. All VSS and will continue to monitor.
--- NOTE | 2016-12-20 21:00 | NUR ---
No visitors at this time, all HS meds given without difficulty. Oral care/suctioning provided, patient repositioned for comfort. No further needs at this time, all VSS and will continue to monitor.
--- NOTE | 2016-12-20 22:50 | NUR ---
Reassessment completed per flowsheet, patient laying in bed on vent with eyes closed. Trach secured, old blood noted on dressing. S1/S2 noted NSR on telemetry with HR 72, rhythmic and regular. Vent settings unchanged from previous, O2 sat 98%. Patient repositioned, barrier cream applied to buttocks/coccyx. All pulses palpable with cap refill < 3 sec. Oral care/suctioning provided, no further needs at this time. All VSS and will continue to monitor.
[2016-12-21] VITALS (25 sets, daily range): BP systolic 124–162; BP diastolic 54–87
--- NOTE | 2016-12-21 01:00 | NUR ---
Patient laying in bed with eyes closed on vent, RT at bedside providing breathing treatment. No s/s of distress, oral care/suctioning provided. Patient repositioned for comfort, no further needs at this time.
--- NOTE | 2016-12-21 03:00 | NUR ---
Reassessment completed per flowsheet, patient laying in bed on vent with eyes open. Eyes do not track, does not follow commands. S1/S2 noted NSR with PAC on telemetry with HR 80, irregular. Vent settings unchanged from previous assessment, O2 sat 98%. Oral care/suctioning provided, patient repositioned for comfort. Patient incontinent of bowel, full bed bath/linen change performed. All pulses palpable with cap refill < 3 sec, no further needs at this time. All VSS and will continue to monitor.
[2016-12-21 03:58] LABS: BASOPHILS 0 % (0-2); EOSINOPHILS 0 % (0-7); HEMATOCRIT 26.9 % (42.0-54.0); HEMOGLOBIN 8.5 g/dL (13.5-17.5); IMMATURE GRANULOCYTES 0.8 % (0-5); LYMPHOCYTES 3.4 % (15-50); MCH 28.9 pg (26.0-34.0); MCHC 31.6 g/dL (31.0-37.0); MCV 91.5 fL (80.0-100.0); MEAN PLATELET VOLUME 13.7 fL (7.4-10.4); MONOCYTES 2.2 % (2-11); NEUTROPHILS 93.6 % (40-80); PLATELET COUNT 168 10x3/uL (130-400); RBC 2.94 10x6/uL (4.20-6.10); WBC 17.1 10x3/uL (4.8-10.8)
[2016-12-21 04:13] LABS: CALC OSMOLALITY 307 mosm/kg (275-300); CARBON DIOXIDE 21.3 mmol/L (21.0-32.0); CHLORIDE - SERUM 111 mmol/L (98-107); CREATININE - SERUM 0.9 mg/dL (0.6-1.3); MAGNESIUM - SERUM 2.3 mg/dL (1.8-2.4); PHOSPHOROUS 2.5 mg/dL (2.5-4.9); POTASSIUM - SERUM 4.6 mmol/L (3.5-5.1); SODIUM 142 mmol/L (136-145); UREA NITROGEN 50 mg/dL (7-18); eGFR NON AFRICAN AMERICAN 89 mL/min (90-120)
[2016-12-21 04:15] LABS: GLUCOSE 306 mg/dL (74-106)
--- NOTE | 2016-12-21 05:00 | NUR ---
Am labs collected without difficulty, oral care suctioning provided. Patient repositioned for comfort, barrier cream applied to buttocks/coccyx area. No further needs at this time, all VSS and will continue to monitor.
--- NOTE | 2016-12-21 07:00 | NUR ---
SHIFT ASSESSMENT COMPLETED, VSS, CONTINUES OFF OF SEDATION, DR CONTI WITH PT, CONTINUES UNABLE TO FOLLOW COMMANDS, PEG IN PLACE PER ASPIRATION AND AUSCULTATION, PULMOCARE AT 60ML/HR, LEFT SUBCLAVIAN AND LEFT PICC IN PLACE DRESSING CDI, VSS, REPOSITIONED, LINEN CHANGE AFTER BOWEL MOVEMENT, WILL CONTINUE TO MONITOR
--- NOTE | 2016-12-21 09:00 | NUR ---
PT REPOSITIONED, ORAL CARE AND SUCTIONING PROVIDED, NO CHANGES NOTED, VSS, WILL CONTINUE TO MONITOR
--- NOTE | 2016-12-21 10:42 | NUR ---
Wound care consult due to redness on buttocks. Noted Stage 2 pressure injury to bilateral buttocks @ coccyx region. Area measures 6cm x 6cm. There is also excoriation/peeling around the wounds d/t frequent loose stools. Recommend Calmoseptine cream be applied twice a day and as needed with each incontinent episode. Right heel has a stage 1 pressure injury as evidenced by nonblanchable redness measuring 5cm x 4cm area. Heel is being protected with foam pad and 4x4s and secured with kerlix. Heels are being bridged. Due to the skin breakdown pt will require an air overlay mattress and should be turned/repositioned every 2 hours. Wound care will continue to monitor.
--- NOTE | 2016-12-21 12:58 | NUR ---
PT REPOSITIONED, SUCTION AND ORAL CARE COMPLETE, VSS, WILL CONTINUE TO MONITOR
--- NOTE | 2016-12-21 14:16 | NUR ---
TOTAL LINEN CHANGE AND BED BATH COMPLETE ORAL CARE AND SUCTIONING PROVIDED, VSS, WILL CONTINUE TO MONITOR
--- NOTE | 2016-12-21 16:07 | NUR ---
BICARB INITIATED PER ORDERS, REPOSITIONED, ORAL CARE PROVIDED, HEELS BRIDGED AT ALL TIMES, AWAITING STOOL SAMPLE, WILL CONTINUE TO MONITOR
--- NOTE | 2016-12-21 17:00 | NUR ---
stool sample collected taken to lab
--- NOTE | 2016-12-21 17:09 | NUR ---
AIR OVERLAY MATTRESS IN PLACE, TOTAL LINEN CHANGE, ORAL CARE AND SUCTIONING PROVIDED, PT BITES WHEN ORAL SUCTIONING ATTTEMPTED, VSS, WILL CONTINUE TO MONITOR
--- NOTE | 2016-12-21 19:00 | NUR ---
REPORT RECIEVED AND ASSESSMENT COMPLETED. SEE FLOWSHEET FOR FULL DETAIL. PT OPENS EYES SPONTANEOUSLY, AND MOVES EXTREMETIES, THOUGH HAS TO RESPONSE TO VERBAL PROMPTS. PT HAS PEG TUBE AT THIS TIME WITH PULMOCARE RUNNING AT 60. TRACH IN PLACE. SIMV RATE OF 6 FIO2 40% PEEP OF 5 TV 600. WILL MONITOR THROUGHOUT SHIFT.
--- NOTE | 2016-12-21 21:00 | NUR ---
2100 MEDS GIVE. FSBS ELEVATED. 4 UNITS GIVEN PER SLIDING SCALE. PT HAS HAD MULTIPLE BOWEL MOVEMENTS. ALL LIQUID STOOL. FULL BATH AND LINEN CHANGE AT THIS TIME. WILL MONITOR
--- NOTE | 2016-12-21 23:00 | NUR ---
REASSESSMENT COMPLETED. SEE FLOWSHEET FOR FULL DETAILS. VSS. NO OTHER CHANGES AT THIS TIME.
[2016-12-22] VITALS (23 sets, daily range): BP systolic 118–156; BP diastolic 64–78
--- NOTE | 2016-12-22 01:02 | NUR ---
TUBE FEED BAGS REPLACE. PT HAD ANOTHER BM. CLEANED CHANGED LINEN AND REPOSITIONED. WILL MONITOR.
--- NOTE | 2016-12-22 03:00 | NUR ---
REASSESSMENT COMPLETED. SEE FLOWSHEET FOR FULL DETAILS. NO OTHER CHANGES IN STATUS AT THIS TIME. VSS. WILL MONITOR
[2016-12-22 04:44] LABS: BASOPHILS 0.1 % (0-2); EOSINOPHILS 0.1 % (0-7); HEMATOCRIT 27.2 % (42.0-54.0); HEMOGLOBIN 8.5 g/dL (13.5-17.5); LYMPHOCYTES 2.9 % (15-50); MCHC 31.3 g/dL (31.0-37.0); MCV 92.8 fL (80.0-100.0); MONOCYTES 2.4 % (2-11); NEUTROPHILS 93.5 % (40-80); PLATELET COUNT 166 10x3/uL (130-400); RBC 2.93 10x6/uL (4.20-6.10); RDW 18.3 % (11.5-14.5); WBC 18.1 10x3/uL (4.8-10.8)
[2016-12-22 05:01] LABS: CALC OSMOLALITY 302 mosm/kg (275-300); CALCIUM 8.1 mg/dL (8.5-10.1); CARBON DIOXIDE 23.2 mmol/L (21.0-32.0); CHLORIDE - SERUM 111 mmol/L (98-107); CREATININE - SERUM 0.7 mg/dL (0.6-1.3); MAGNESIUM - SERUM 2.3 mg/dL (1.8-2.4); PHOSPHOROUS 2.6 mg/dL (2.5-4.9); POTASSIUM - SERUM 4.8 mmol/L (3.5-5.1); SODIUM 142 mmol/L (136-145); UREA NITROGEN 48 mg/dL (7-18); eGFR NON AFRICAN AMERICAN > 90 mL/min (90-120)
--- NOTE | 2016-12-22 05:07 | NUR ---
PT HAD ANOTHER BM. LINEN CHANGE AND BED BATH COMPLETED. ORAL CARE DONE AT THIS TIME. VSS. PT IS ABLE TO ANSWER YES AND NO QUESTIONS BY SHAKING HEAD UP AND DOWN ETC. RESPONDS TO HIS NAME.
[2016-12-22 05:16] LABS: GLUCOSE 224 mg/dL (74-106)
--- NOTE | 2016-12-22 07:00 | NUR ---
SHIFT ASSESSMENT COMPLETED, PT MORE ALERT TODAY, ABLE TO FOCUS EYES, NODS HEAD YES AND NO TO QUESTIONS, PUPILS REACTIVE, UNABLE TO FOLLOW COMMANDS TO SQUEEZE HANDS BUT IS ABLE TO OPEN AND CLOSE MOUTH AND TURN HEAD AND MOVE LEGS WHEN ASKED, EXPLAINED CONDITION TO PATIENT AND HE NODS IN UNDERSTANDING, LEFT SUBCLAVIAN CVL IN PLACE, LEFT PICC IN PLACE, PEG IN PLACE PER ASPIRATION AND AUSCULTATION, 40ML RESIDUAL, PULMOCARE AT 60ML/HR, DRESSING CHANGED, NO DRAINAGE NOTED, DANIELLE CATHETER IN PLACE DRAINING YELLOW URINE WITH SEDIMENT, HEELS BRIDGED, DRESSING TO RIGHT HEEL CHANGED, REPOSITIONED, CALMOSEPTINE TO BUTTOCKS, VSS, WILL CONTINUE TO MONITOR
--- NOTE | 2016-12-22 07:22 | EEG ---
PATIENT:TYLOR PARKER DATE OF SERVICE: 12/03/16 MEDICAL RECORD: [id number] DATE OF : 46 LOCATION:D.231 D.ICU ADMISSION DATE: 12/03/16 REFERRING PHYSICIAN: INTERPRETING PHYSICIAN: KENN CONTI MD DATE OF SERVICE: 12/16/2016 Electroencephalographic Report Referred as an inpatient by Dr. Baldwin. EEG NUMBER: [id number] DATE OF EXAMINATION: 12/16/2016 at 8:15 a.m. The study is performed as an inpatient. The patient is currently in room 2310. TECHNICAL DATA: This electroencephalographic recording consisted of approximately 20 minutes of data collection utilizing the international 10/20 system of electrode placement and both referential and non-referential montages. Sixteen channels of electrocerebral recording are accompanied by a 17th channel dedicated to the electrocardiographic rhythm and 2 channels of electromyographic recording. Recording is performed entirely in the lethargic state utilizing activation by photic stimulation. ELECTROENCEPHALOGRAPHIC DATA: The entirety of the recorded electrocerebral activity is performed in the lethargic state. Electromyographic artifact remains prominent. Rapid eye movements are not seen. The posterior dominant background has not developed. The study is barely monotonous and consists of a mixture of slow wave activities ranging from 2-5 Hz. This is irregular in morphology, generalized and symmetric in distribution. There is some intermixed faster frequencies. No focal slowing is identified. No epileptiform discharges are seen. Photic stimulation induces no abnormal change in the recorded electrocerebral activity. INTERPRETATION: Continuous slow, generalized (lethargy). This electroencephalographic recording is indicative of a moderately severe diffuse encephalopathy. TRANSINT:[id number] Voice Confirmation ID: [id number] DOCUMENT ID: [id number] KENN CONTI MD at 0722 CC: [id number] DICTATION DATE: 12/17/16 07 MANAGER BEVERAGE: 12/17/16 2349 ADM IN [place] [id number] [place] [address]
--- NOTE | 2016-12-22 09:00 | NUR ---
NUTRITION MONITORING & EVAL CHART REVIEWED, PT REMAINS IN ISOLATION. TOLERATING PULMOCARE @ 60 CC/HR. RD FOLLOWING
--- NOTE | 2016-12-22 09:00 | NUR ---
PT REPOSITIONED, ORAL CARE PROVIDED, TYLOR DUQUE JR (SON) VISITING FOR FIRST TIME AND ALL QUESTIONS ANSWERED, PT SMILING AT SON, DUNIA, WILL CONTINUE TO MONITOR
--- NOTE | 2016-12-22 11:00 | NUR ---
SPOKE WITH ROME GARCIA AND VOISE ABOUT PT BEING MORE ALERT, PER BRENDA NEW ORDERS TO DC PICC TO LEFT ARM
--- NOTE | 2016-12-22 11:00 | NUR ---
PT REPOSITIONED, VSS, ORAL CARE AND SUCTIONING PROVIDED, SECRETIONS THICK AND WHITE, HEELS BRIDGED, WILL CO NTINUE TO MONITOR
--- NOTE | 2016-12-22 13:07 | NUR ---
TOTAL LINEN CHANGE, BED BATH AND ORAL CARE WITH SUCTIONING COMPLETE, VSS, PT CONTINUES WITH ABILITY TO NOD AND SHAKE HEAD TO ANSWER QUESTIONS, DENIES PAIN, STOOL SAMPLE TAKEN TO LAB, WILL CONTINUE TO M ONITOR
--- NOTE | 2016-12-22 13:29 | NUR ---
MANUEL met with son, Debbie, during 0900 visitation. Discussed POC - explained LTAC referral will be sent soon. Son lives in [place], explained there is an LTAC in [place]. He states patient would prefer to stay in [place], closer to his . Questions answered. Referral faxed and called to Maxine with [facility]. Waiting determination.
--- NOTE | 2016-12-22 14:28 | NUR ---
LIFT MIDLINE (WAS NOT PICC) REMOVED WITH MARILIA DAIRY BAR MANAGER ACCESS NURSE, WAS AT 14 WITH TIP INTACT, PRESSURE HELD AND TEGADERM APPLIED TO SITE, PT TOLERATED WELL, DENIES PAIN
--- NOTE | 2016-12-22 17:00 | NUR ---
REPOSITIONED, VSS, ORAL CARE AND SUCTIONING PROVIDED, BACK ON SIMV, CDIFF NEGATIVE, WILL COLLECT ANOTHER SAMPLE, WILL CON TINUE TO MONITOR
--- NOTE | 2016-12-22 19:15 | NUR ---
REPORT RECIEVED. ASSESSMENT COMPLETED. PT IS ALERT AND ABLE TO ANSWER YES AND NO QUESTIONS. PT LUNG SOUNDS ARE CRACKLES IN THE UPPER LOBES AND DIMINISHED IN THE LOWER LOBES. THE PT IS ON THE VENT WITH A TRACH SIMV SETTING WITH A RATE OF 6 ,FIO2 OF 40, TV OF 600, AND A PEEP OF 5. PT TRACH IS A SIZE 8 AND SECURED. PT BOWEL SOUNDS ARE ACTIVE. PT IS BEING FED THROUGH A PEG TUBE IN THE LEFT UPPER ABDOMEN WITH PULMACARE @ A RATE OF 60. PT IS ON TELEMETRY AT A RATE OF 83 IN NORMAL SINUS RHYTHM. PT HAS PALP PULSES IN ALL EXTREMITIES. PT HAS A CVL IN THE LT SUBCLAVIAN WITH BICARB RUNNING @ 50 ML/HR AND NS RUNNING @ 10 ML/HR. PT HAS A PRESSURE ULCER ON HIS BUTTOCK THAT IS A STAGE 2, PT ALSO HAS A PRESSURE ULCER ON THE RT HEEL. BOTH WOUNDS HAVE DRESSING ON THEM THAT ARE CDI. PT IS POSITIONED FOR COMFORT, WILL CONTINUE TO MONITOR.
--- NOTE | 2016-12-22 21:00 | NUR ---
NO VISITORS AT THIS TIME. PT HAD A BM CLEANED AND BATHED WITH A COMPLETE SET OF LINENS. PT WAS POSITIONED FOR COMFORT. WILL CONTINUE TO MONITOR.
--- NOTE | 2016-12-22 23:00 | NUR ---
REASSESSMENT COMPLETED. NO ACUTE CHANGES AT THIS TIME. PT POSITIONED FOR COMFORT WILL CONTINUE TO MONITOR.
[2016-12-23] VITALS (24 sets, daily range): BP systolic 116–152; BP diastolic 63–92
--- NOTE | 2016-12-23 01:06 | NUR ---
PT POSITIONED FOR COMFORT DENIES ANY NEEDS. WILL CONTINUE TO MONITOR.
--- NOTE | 2016-12-23 03:00 | NUR ---
REASSESSMENT COMPLETED. NO ACUTE CHANGES AT THIS TIME. PT RESTRAINTS REMOVED AT THIS TIME. PT POSITIONED AND CLEANED. WILL CONTINUE TO MONITOR PT.
[2016-12-23 04:09] LABS: BASOPHILS 0.1 % (0-2); EOSINOPHILS 2.1 % (0-7); HEMATOCRIT 28.1 % (42.0-54.0); HEMOGLOBIN 8.7 g/dL (13.5-17.5); IMMATURE GRANULOCYTES 0.7 % (0-5); LYMPHOCYTES 5.5 % (15-50); MCH 28.7 pg (26.0-34.0); MCV 92.7 fL (80.0-100.0); MEAN PLATELET VOLUME 13.9 fL (7.4-10.4); MONOCYTES 4.7 % (2-11); NEUTROPHILS 86.9 % (40-80); PLATELET COUNT 177 10x3/uL (130-400); RBC 3.03 10x6/uL (4.20-6.10); RDW 18.1 % (11.5-14.5); WBC 15.3 10x3/uL (4.8-10.8)
[2016-12-23 04:18] LABS: CALC OSMOLALITY 303 mosm/kg (275-300); CARBON DIOXIDE 23.6 mmol/L (21.0-32.0); CHLORIDE - SERUM 111 mmol/L (98-107); CREATININE - SERUM 0.6 mg/dL (0.6-1.3); POTASSIUM - SERUM 4.3 mmol/L (3.5-5.1); SODIUM 144 mmol/L (136-145); UREA NITROGEN 49 mg/dL (7-18); eGFR NON AFRICAN AMERICAN > 90 mL/min (90-120)
[2016-12-23 04:19] LABS: GLUCOSE 172 mg/dL (74-106)
--- NOTE | 2016-12-23 05:00 | NUR ---
LG GREEN BM AT THIS TIME, PARTIAL LINEN CHANGE
--- NOTE | 2016-12-23 06:26 | NUR ---
LG GREEN BM AT THIS TIME.
--- NOTE | 2016-12-23 06:48 | NUR ---
RECTAL TUBE PUT IN PLACE TO HELP RELEAVE THE BREAK DOWN ON HIS BUTTOCK. PT TOLLERATED IT WELLL. POSITIONED FOR COMFORT.
--- NOTE | 2016-12-23 10:47 | NUR ---
DR. GUTIERREZ HERE IN TO SEE PATIENT. DR. WATT IS HERE IN TO SEE PATIENT.
--- NOTE | 2016-12-23 19:25 | NUR ---
REPORT RECIEVED, SHIFT ASSESSMENT COMPLETE, PT AROUSES TO VOICE, FOLLOWS COMMANDS, SHAKES HEAD TO YES/NO QUESTIONS, 8.0 TRACH DRSG CDI, ON 40% FIO2 WITH 97% O2 SAT. CRACKLES HEARD IN B/L UPPER LOBES, DIMINISHED IN B/L LOWER LOBES, S1S2, CM-NSR, PATENT LEFT SC CVL...SEE IV FLOW SHEET...PATENT G-TUBE TO ABDOMEN WITH PULMOCARE INFUSING @ 60 ML/HR PER PUMP, ABDOMEN IS DISTENDED WITH ACTIVE BS, PATENT F/C WITH CONCENTRATED UOP, PATENT RECTAL TUBE WITH GREEN DRAINAGE NOTED, EDEMA NOTED IN ALL EXTREMETIES, ALL PPP, VSS, WILL CON'T TO MONITOR
--- NOTE | 2016-12-23 21:00 | NUR ---
SPOKE WITH FAMILY OVER PHONE, STATES "I WANT A MEETING WITH THE DOCTORS TOMORROW", I TOLD HIM I WOULD LET THE DOCOTORS KNOW IN THE MORNING
--- NOTE | 2016-12-23 23:15 | NUR ---
REASSESSMENT COMPLETE, NO CHANGES NOTED, PT RESTING AT THIS TIME, VSS, CALL LIGHT IN REACH
[2016-12-24] VITALS (26 sets, daily range): BP systolic 108–150; BP diastolic 58–89
--- NOTE | 2016-12-24 01:12 | NUR ---
REPOSITIONED FOR COMFORT, WILL CON'T TO MONITOR
--- NOTE | 2016-12-24 03:15 | NUR ---
PARTIAL LINEN CHANGE, PT REPOSITIONED FOR COMFORT, ORAL CARE PROVIDED,
[2016-12-24 03:48] LABS: BASOPHILS 0 % (0-2); EOSINOPHILS 2.1 % (0-7); HEMATOCRIT 27.9 % (42.0-54.0); HEMOGLOBIN 8.7 g/dL (13.5-17.5); IMMATURE GRANULOCYTES 0.4 % (0-5); LYMPHOCYTES 3.1 % (15-50); MCH 28.6 pg (26.0-34.0); MCHC 31.2 g/dL (31.0-37.0); MCV 91.8 fL (80.0-100.0); MONOCYTES 5.4 % (2-11); PLATELET COUNT 169 10x3/uL (130-400); RBC 3.04 10x6/uL (4.20-6.10); WBC 13.6 10x3/uL (4.8-10.8)
[2016-12-24 03:56] LABS: CALC OSMOLALITY 295 mosm/kg (275-300); CHLORIDE - SERUM 109 mmol/L (98-107); CREATININE - SERUM 0.6 mg/dL (0.6-1.3); GLUCOSE 166 mg/dL (74-106); POTASSIUM - SERUM 4.1 mmol/L (3.5-5.1); SODIUM 139 mmol/L (136-145); UREA NITROGEN 52 mg/dL (7-18); eGFR NON AFRICAN AMERICAN > 90 mL/min (90-120)
--- NOTE | 2016-12-24 05:29 | NUR ---
REPOSITIONED FOR COMFORT, ORAL CARE PROVIDED,
--- NOTE | 2016-12-24 07:00 | NUR ---
REPORT RECIEVED FROM OFF COMING NURSE. SEE FLOW SHEET FOR ASSESSMENT. PT ABLE TO SHAKE HEAD UP AND YES FOR SIMPLE COMMANDS BUT UNABLE TO VERBALIZE. TRACH SIZE 8 SECURED. DRESSING C/D/I. SIV RATE OF 6, TITAL VOLUME 600 FIO2 40%, PEEP 5, PRESSURE SUPPORT 10. PEG TUBE DRESSING IN PLACE AND HAS SCANT YELLOW DRAINAGE NOTED. PEG TUBE PATENT. 45 RESIDUAL NOTED. LEFT SUBCLAVIAN CVL NOTED. SEE IV FLOW SHEET. RECTAL TUBE PATENT WITH LOOSE GREEN/BLACK STOOL NOTED. CALL LIGHT IN REACH. WILL CONT POC.
--- NOTE | 2016-12-24 07:37 | NUR ---
PT TAKEN OFF SIMV MODE AND A TRACH COLLAR USED AT 15L O2. O2 95%. BREATHING NORMAL AND UNLABORED. WILL CONT POC
--- NOTE | 2016-12-24 08:00 | NUR ---
PEG TUBE DRESSING CHANGED. C/D/I.
--- NOTE | 2016-12-24 08:56 | NUR ---
REMAINS ON TRACH COLLAR. RESP 44. RT DEEP SUCTION TRACH. THICK YELLOW/WHITE SPEUTUM NOTED. PT SHOOK HEAD UP AND DOWN WHENEVER ASKED IF HE COULD BREATH BETTER. RESP 21. SPO2 96%. CALL LIGHT IN REACH.
--- NOTE | 2016-12-24 09:07 | NUR ---
SPOKE WITH A FAMILY MEMBER WHO KNEW THE PASSWORD. UPDATED ON PT CONDITION AND AWSWERED QUESTION. NO FAMILY AT BED SIDE.
--- NOTE | 2016-12-24 10:07 | NUR ---
NUTRITION MONITORING & EVAL CHART REVIEWED. PT REMAINS ON VENT IN ISOLATION. TOLERATING PULMOCARE @ GOAL RATE 60 CC/HR. RD FOLLOWING
--- NOTE | 2016-12-24 10:49 | NUR ---
AWARE OF LTC REQUIREMENTS. CHANGED NA BICARB DRIP TO NA BICARB 650 MG TID PER PEG.
--- NOTE | 2016-12-24 11:00 | NUR ---
PT BEED REPOSITIONED Q2 HOUR WITH PILLOWS AND BUTT PASTE TO BUTTOCKS. NO CHANGES FROM MORNING ASSESSMENT. CALL LIGHT IN REACH. WILL CONT POC.
--- NOTE | 2016-12-24 11:17 | NUR ---
NA BICARB 650MG TAB PER PEG TUBE TID. FIRST DOSE GIVEN. PEG TUBE PLACEMENT CHECKED WITH 45ML RESIDUAL.
--- NOTE | 2016-12-24 12:00 | NUR ---
FAMILY AT BED SIDE. STATED THE PERSON I SPOKE WITH BEFORE IS THE PT'S STEP DAUGHTER AND REQUESTED THAT THE PASSWORD BE CHANGED. PASSWORD CHANGED TO GAY RENEE AND TYLOR NATHAN
--- NOTE | 2016-12-24 12:15 | NUR ---
FAMILY SPOKE WITH COTTON GROWER. AT BED SIDE.
--- NOTE | 2016-12-24 14:00 | NUR ---
DRESSING TO RIGHT HEEL CHANGED. C/D/I. HEEL HAS NON BLANCHABLE APPROXIMETLY 2CM IN DIANETER.
--- NOTE | 2016-12-24 15:00 | NUR ---
NO CHANGES FROM PREVIOUS ASSESSMENTS. SEE ASSESSMENT FLOW SHEET. REPOSITIONING Q 2 HOURS AND PRN AND BUTTPASTE APPLIED TO BUTTOCKS. SHAKES HEAD "NO" WHENEVER ASKED IF HE IS HURTING OR NEEDS ANYTHING. CALL LIGHT IN REACH. WILL CONT POC.
--- NOTE | 2016-12-24 16:06 | NUR ---
Rec'd call from [place] with [facility] - she states they can accept patient once he is stable off bicarb, due to nation wide shortage. Explained it has been changed to PO (peg) - she states they will re evaluate Tuesday and patient can transfer if stable. CM will follow.
--- NOTE | 2016-12-24 17:00 | NUR ---
PT LYING IN BED. CURRENTLY ON BIPAP PER ORDERS. SPO2 96%. NO SOB NOTED. SHAKES HEAD NO WHENEVER ASKED IF HURTING OR NEEDS ANYTHING. REPOSITION Q 2 HOURS AND PRN. CALL LIGHT IN REACH. WILL CONT POC
--- NOTE | 2016-12-24 19:10 | NUR ---
SHIFT ASSESSMENT COMPLETE, SEE FLOWSHEET FOR FINDINGS. PATIENT CURRENTLY ON CPAP VIA VENT WITH NO RESP DISTRESS NOTED. ORAL CARE GIVEN AT THIS TIME. THICK WHITE SECRETIONS SUCTIONED FROM BACK OF THROAT. PATIENT TURNED, DENIES DISCOMFORT. VSS. WILL MONITOR.
--- NOTE | 2016-12-24 20:50 | NUR ---
NIGHT MEDS GIVEN, DENIES NEED AT THIS TIME.
--- NOTE | 2016-12-24 21:10 | NUR ---
PATIENT BACK ON SIMV PER RT.
--- NOTE | 2016-12-24 23:00 | NUR ---
REASSESSMENT COMPLETE, NO ACUTE CHANGES. SEE FLOWSHEET FOR DETAILS. VSS.
[2016-12-25] VITALS (25 sets, daily range): BP systolic 113–161; BP diastolic 59–87
--- NOTE | 2016-12-25 01:00 | NUR ---
RESTING WITH EYES CLOSED. RR EVEN AND NON-LABORED.
--- NOTE | 2016-12-25 02:45 | NUR ---
BED BATH GIVEN AND LINENS CHANGED. TOLERATED WELL.
--- NOTE | 2016-12-25 03:10 | NUR ---
REASSESSMENT COMPLETE, SEE FLOWSHEET. VSS.
[2016-12-25 04:10] LABS: BASOPHILS 0 % (0-2); EOSINOPHILS 3.3 % (0-7); HEMATOCRIT 26.1 % (42.0-54.0); HEMOGLOBIN 8.2 g/dL (13.5-17.5); IMMATURE GRANULOCYTES 0.4 % (0-5); LYMPHOCYTES 3.3 % (15-50); MCHC 31.4 g/dL (31.0-37.0); MCV 92.2 fL (80.0-100.0); MEAN PLATELET VOLUME 12.9 fL (7.4-10.4); MONOCYTES 6.5 % (2-11); NEUTROPHILS 86.5 % (40-80); PLATELET COUNT 164 10x3/uL (130-400); RBC 2.83 10x6/uL (4.20-6.10); RDW 17.9 % (11.5-14.5); WBC 12.5 10x3/uL (4.8-10.8)
[2016-12-25 04:19] LABS: CALC OSMOLALITY 298 mosm/kg (275-300); CALCIUM 8.2 mg/dL (8.5-10.1); CARBON DIOXIDE 23.1 mmol/L (21.0-32.0); CHLORIDE - SERUM 109 mmol/L (98-107); CREATININE - SERUM 0.7 mg/dL (0.6-1.3); GLUCOSE 152 mg/dL (74-106); POTASSIUM - SERUM 4.2 mmol/L (3.5-5.1); SODIUM 141 mmol/L (136-145); UREA NITROGEN 54 mg/dL (7-18); eGFR NON AFRICAN AMERICAN > 90 mL/min (90-120)
--- NOTE | 2016-12-25 05:00 | NUR ---
TURNED AND ORAL CARE PERFORMED. VSS, CL IN REACH.
--- NOTE | 2016-12-25 07:00 | NUR ---
ASSESSMENT COMPLETE. REPOSITIONED AND ORAL CARE DONE.
--- NOTE | 2016-12-25 08:00 | NUR ---
OXYGEN SATURATION IN MID TO HIGH 80'S. RESP NOTIFIED. PLACED BACK ON VENT IN CPAP MODE. SATS CONTINUE TO REMAIN IN HIGH 80'S ON CPAP. PLACED BACK ON SIMV 6. RESP THERAPY AT BEDSIDE. O2 INCREASED TO 65%.
--- NOTE | 2016-12-25 09:00 | NUR ---
DR. GUTIERREZ HERE. ORDERS REC'D FOR BRONCH.
--- NOTE | 2016-12-25 09:13 | NUR ---
PHONE CONSENT OBTAINED FOR BRONCH FROM SON.
--- NOTE | 2016-12-25 09:30 | NUR ---
TUBE FEEDINGS ON HOLD FOR BRONCH.
--- NOTE | 2016-12-25 10:15 | NUR ---
BRONCH COMPLETE. BACK ON VENT WITH FOLLOWING SETTINGS TV 600 FIO2 100% SIMV 10 PEEP +8 PS 10. PULMOCARE TUBE FEEDING RESUMED AT 60CC/HR. REPOSTIONED ONTO L SIDE.
--- NOTE | 2016-12-25 12:15 | NUR ---
SON @ BEDSIDE. CONDITION UPDATE GIVEN. SON REQUESTED THAT HIS FATHER BE A DNR. DR. MENDOZA NOTIFIED BY CHARGE NURSE AND ORDER REC'D.
--- NOTE | 2016-12-25 12:30 | NUR ---
MATTRESS OVERLAY LEAKING UNDER MIDSECTION OF PATIENT. OVERLAY REPLACED AND PATIENT REPOSITIONED ONTO RIGHT SIDE.
--- NOTE | 2016-12-25 14:00 | NUR ---
NO ACUTE DISTRESS NOTED.
--- NOTE | 2016-12-25 17:00 | NUR ---
TURNED AND REPOSITIONED. NO ACUTE DISTRESS NOTED.
--- NOTE | 2016-12-25 19:05 | NUR ---
ASSESSMENT COMPLETE, SEE FLOWSHEET. PATIENT ON VENT, RR EVEN AND NONLABORED. VSS, WILL MONITOR.
--- NOTE | 2016-12-25 21:00 | NUR ---
NIGHT MEDS GIVEN, PATIENT TURNED AND REPOSISTIONED. DENIES FURTHER NEED.
--- NOTE | 2016-12-25 22:00 | NUR ---
TUBE FEEDING LINES CHANGED.
--- NOTE | 2016-12-25 23:05 | NUR ---
REASSESSMENT COMPLETE, NO ACUTE CHANGES. VSS.
[2016-12-26] VITALS (25 sets, daily range): BP systolic 119–156; BP diastolic 66–99
--- NOTE | 2016-12-26 01:10 | NUR ---
PATIENT PULLED UP AND REPOSISTIONED. VSS.
--- NOTE | 2016-12-26 03:00 | NUR ---
REASSESSMENT COMPLETE, NO ACUTE CHANGES. VSS. DENIES NEED.
--- NOTE | 2016-12-26 03:30 | NUR ---
CLEANED UP AND LINENS CHANGED. TOLERATED WELL.
[2016-12-26 04:49] LABS: BASOPHILS 0 % (0-2); EOSINOPHILS 2.3 % (0-7); HEMATOCRIT 24.7 % (42.0-54.0); HEMOGLOBIN 7.6 g/dL (13.5-17.5); IMMATURE GRANULOCYTES 0.4 % (0-5); LYMPHOCYTES 3.5 % (15-50); MCH 28.5 pg (26.0-34.0); MCHC 30.8 g/dL (31.0-37.0); MCV 92.5 fL (80.0-100.0); MEAN PLATELET VOLUME 13.4 fL (7.4-10.4); MONOCYTES 6.5 % (2-11); NEUTROPHILS 87.3 % (40-80); PLATELET COUNT 179 10x3/uL (130-400); RBC 2.67 10x6/uL (4.20-6.10); RDW 18.1 % (11.5-14.5); WBC 13.4 10x3/uL (4.8-10.8)
--- NOTE | 2016-12-26 05:15 | NUR ---
RESTING WITH EYES CLOSED, VSS, WILL MONITOR.
[2016-12-26 06:14] LABS: CALC OSMOLALITY 296 mosm/kg (275-300); CARBON DIOXIDE 23.1 mmol/L (21.0-32.0); CHLORIDE - SERUM 109 mmol/L (98-107); CREATININE - SERUM 0.7 mg/dL (0.6-1.3); GLUCOSE 162 mg/dL (74-106); POTASSIUM - SERUM 4.1 mmol/L (3.5-5.1); SODIUM 140 mmol/L (136-145); UREA NITROGEN 53 mg/dL (7-18); eGFR NON AFRICAN AMERICAN > 90 mL/min (90-120)
--- NOTE | 2016-12-26 06:15 | NUR ---
SON CALLED FOR UPDATE. PASSWORD WAS PROVIDED. UPDATE GIVEN.
--- NOTE | 2016-12-26 11:00 | NUR ---
DR. GUTIERREZ HERE. CONDITION UPDATED GIVEN AND ORDERS REC'D.
--- NOTE | 2016-12-26 12:25 | NUR ---
TO XRAY FOR CTA. TOLERATED WITHOUT ACUTE DISTRESS.
--- NOTE | 2016-12-26 18:58 | NUR ---
LATE ENTRY 1800 PATIENT' SON, DAMIEN PARKER, REQUEST TO SPEAK WITH A SLEEPING BAG FILLER. HE STATED HE AND HIS AUNT HAD BEEN CONSIDERING HIS FATHER'S COURSE OF ILLNESS. THEY KNOW HE WOULD NOT WANT TO LIVE LIKE THIS. THEY ARE REQUESTING HOSPICE CARE. CM CALLED DR MENDOZA. SPOKE WITH DR PRASAD. RECEIVED AN ORDER FOR [facility] HOSPICE EVAL AND ADMIT IF APPROPRIATE. TC TO [facility] HOSPICE PROVIDER. SPOKE WITH DARYL, THE ON-CALL NURSE. THE FAMILY WANTS TO MEET 12/27/16 AT 0900 VISITING HR. CM PROVIDED CONTACT PHONE NUMBERS FOR THE SON AND HIS AUNT. DAMIEN PARKER- [phone] LARA RENEE- [phone]. LIAM FROM [facility] WILL CONTACT THE FAMILY TO ARRANGE THE MEETING IN [facility]S FAMILY ROOM AT 0900. CM TO FOLLOW TO ASSIST IS APPROPRIATE.
--- NOTE | 2016-12-26 19:15 | NUR ---
REPORT RECIEVED. ASSESSMENT COMPLETED. PT IS AWAKE AND ANSWERS YES AND NO QUESTIONS. PT IS ON VENT VIA TRACH WITH A RATE OF 10 , FIO2 OF 40%, PEEP OF 5, AND A TV OF 600. PT LUNG SOUNDS ARE CRACKLES IN THE UPPER LOBES AND DIMINISHED IN THE LOWER LOBES. PT IS ON TELEMETRY WITH A RATE OF 74 AND A RHYTHM OF NORMAL SINUS. UPON ASCULTATION S1S2 SOUNDS ARE HEARD. PT HAS PALP PULSES IN ALL EXTREMITIES. BOWEL SOUNDS ARE ACTIVE IN ALL 4 QUADS. PT IS BEING FED VIA PEG TUBE AT A RATE OF 60 ML/HR PT ABDOMEN IS DISTENDED AND FIRM. PT HAS A RECTAL TUBE THAT HAS ADAQUATE OUTPUT. PT HAS A DANIELLE. PT HAS SOME BRUISING ON HIS RT GROIN FROM PREVIOUS HEART CATH. PT HAS A LT SUBCLAVIAN WITH NS RUNNING @ 75 ML/HR. PT HAS SCDS ON AND IS POSITIONED FOR COMFORT. WILL CONTINUE TO MONITOR.
--- NOTE | 2016-12-26 21:00 | NUR ---
NO VISITORS AT BED SIDE. PT POSITIONED FOR COMFORT, WILL CONTINUE TO MONITOR.
--- NOTE | 2016-12-26 23:00 | NUR ---
REASSESSMENT COMPLETED. NO ACUTE CHANGES AT THIS TIME. PT POSITIONED FOR COMFORT WILL CONTINUE TO MONITOR.
[2016-12-27] VITALS (15 sets, daily range): BP systolic 107–156; BP diastolic 51–80
--- NOTE | 2016-12-27 01:00 | NUR ---
PT IN BED RESTLESS. PT POSITIONED FOR COMFORT AND WILL CONTINUE TO MONITOR.
--- NOTE | 2016-12-27 03:00 | NUR ---
REASSESSMENT COMPLETED. NO ACUTE CHANGES AT THIS TIME. PT POSITIONED FOR COMFORT WILL CONTINUE TO MONITOR.
[2016-12-27 04:43] LABS: BASOPHILS 0.1 % (0-2); EOSINOPHILS 1.9 % (0-7); HEMATOCRIT 24.7 % (42.0-54.0); HEMOGLOBIN 7.7 g/dL (13.5-17.5); IMMATURE GRANULOCYTES 0.4 % (0-5); MCH 29.2 pg (26.0-34.0); MCHC 31.2 g/dL (31.0-37.0); MCV 93.6 fL (80.0-100.0); MEAN PLATELET VOLUME 12.9 fL (7.4-10.4); MONOCYTES 6.2 % (2-11); NEUTROPHILS 86.4 % (40-80); PLATELET COUNT 180 10x3/uL (130-400); RBC 2.64 10x6/uL (4.20-6.10); RDW 18.5 % (11.5-14.5); WBC 14.1 10x3/uL (4.8-10.8)
[2016-12-27 04:54] LABS: APTT 26.9 SECONDS (22.8-39.4); INR 1.17 (0.85-1.17); PROTIME 14.8 SECONDS (11.6-15.0)
[2016-12-27 05:02] LABS: ALBUMIN 2.5 g/dL (3.4-5.0); ALKALINE PHOSPHATASE 58 U/L (46-116); ALT (SGPT) 29 U/L (10-68); CALC OSMOLALITY 299 mosm/kg (275-300); CARBON DIOXIDE 24.4 mmol/L (21.0-32.0); CHLORIDE - SERUM 111 mmol/L (98-107); CREATININE - SERUM 0.6 mg/dL (0.6-1.3); GLUCOSE 128 mg/dL (74-106); PROTEIN - SERUM 5.5 g/dL (6.4-8.2); SODIUM 143 mmol/L (136-145); UREA NITROGEN 48 mg/dL (7-18); eGFR NON AFRICAN AMERICAN > 90 mL/min (90-120)
--- NOTE | 2016-12-27 05:02 | NUR ---
PT IS RESTING WITH NO AGITATION AT THIS TIME. PT POSITIONED FOR COMFORT WILL CONTINUE TO MONITOR.
--- NOTE | 2016-12-27 07:00 | NUR ---
REPORT RECEIVED FROM OFF COMING NURSE. SEE FLOW SHEET FOR ASSESSMENT. TRACH SECURED. TRACH SIZE 8. ON SIMV RATE 10 FIO2 40%, PEEP 5, TITAL VOL. 600 PS 15. PEG FEEDING WAS TURNED OFF. PLACEMENT CHECKED VIA A&A. PATENT WITH 10ML OF RESIDUAL. RESTARTED. RECTAL TUBE IN PLACE WITH 800ML OF WATERY STOOL NOTED. FC NOTED WITH DARK CONCETRATED URINE. CENTRAL LINE DRESSING C/D/I. NS AT 75ML/H. NO NEEDS AT THIS TIME. FAMILY NOT AT BED SIDE. WILL CONT POC.
--- NOTE | 2016-12-27 08:30 | NUR ---
BED BATH GIVEN AND LINES CHANGED. PEG TUBE DRESSING CHANGED. DRESSING HAS YELLOW DRAINAGE NOTED. RECTAL TUBE BAG CHANGED. PT REPOSITIONED FOR COMFORT. BUTTPASTE APPLIED TO COCCYX. PERICARE PREFORMED.
--- NOTE | 2016-12-27 09:00 | NUR ---
HOSPICE NURSE AND FAMILY AT BED SIDE DISCUSSING PLAN OF CARE.
--- NOTE | 2016-12-27 09:25 | NUR ---
PT AND FAMILY AGREED TO GO ON HOSPICE.
--- NOTE | 2016-12-27 09:48 | NUR ---
12/27/2016 9:40 DCP: Discharge Planning CM met with patient - he is alert & oriented to self. He answers most yes & no questions with nodding his head. He does not try to mouth any words. Asked patient if he knew what hospice was -he shook his head yes. Asked if he wanted to continue current treatment/ventilator care - he shook his head no. Asked if he wanted hospice - shook his head yes. Family present. Son Debbie, states he had same conversation with patient last PM with same responses. Sister Marion also received same responses yesterday afternoon when she asked him same questions. [facility] Hospice rep here to evaluate patient & answer questions for family. Patient is appropriate for [facility] hospice & will be admitted when paperwork completed.
--- NOTE | 2016-12-27 10:40 | NUR ---
PT HAS INCREASED ANXIETY. ASKED HIM IF HE WAS SCARE AND HE SHOOK HIS HEAD YES. STAYED WITH PT AND ASKED IF HE WANTED HIS FAMILY WHERE HE SHOOK HIS HEAD YES AGAIN. FAMILY AT BED SIDE. PT CALM, BREATHING NORMAL AND UNLABORED. CALL LIGHT IN REACH. WILL CONT POC.
--- NOTE | 2016-12-27 11:00 | NUR ---
PT REQUEST FAMILY BELONGS. SHIRT, PANTS WALLET AND OTHER BELONGINS GIVEN TO FAMILY MEMBERS WITH PTS PERMISSION.
--- NOTE | 2016-12-27 11:43 | NUR ---
PT SON THAT LIVES IN [place] ARRIVED AND JOINED OTHER FAMILY AT BED SIDE.
--- NOTE | 2016-12-27 12:21 | NUR ---
ROOM 2101 AVALIBLE FOR PT.
[2016-12-28 20:08] LABS: ACID FAST SMEAR Negative (()); AFB SPECIMEN PROCESSING Concentration (())
[2016-12-29 13:16] LABS: FUNGUS STAIN Final report (())
== END 2016-12-27 13:27 | disposition hospice, inpatient (51) | DRG 3 ==
LOC: D.ER 00:30 → D.CVICU 02:43 → D.ICU 02:43 → D.M2 02:43 → D.CVICU 20:00 → D.ICU 12-11 20:05
PROVIDERS: Emergency Medicine; Family Medicine; Internal Medicine Cardiovascular Disease; Internal Medicine Gastroenterology; Internal Medicine Interventional Cardiology; Internal Medicine Pulmonary Disease; ADMIT Emergency Medicine
PROC: 0BH17EZ Insertion of Endotracheal Airway into Trachea, Via Natural or Artificial Opening (ICD-10-PCS; principal; 2016-12-06)
PROC: 027034Z Dilation of Coronary Artery, One Artery with Drug-eluting Intraluminal Device, Percutaneous Approach (ICD-10-PCS; 2016-12-06)
PROC: 5A1955Z Respiratory Ventilation, Greater than 96 Consecutive Hours (ICD-10-PCS; 2016-12-06)
PROC: 4A023N7 Measurement of Cardiac Sampling and Pressure, Left Heart, Percutaneous Approach (ICD-10-PCS; 2016-12-13)
PROC: B2181ZZ Fluoroscopy of Left Internal Mammary Bypass Graft using Low Osmolar Contrast (ICD-10-PCS; 2016-12-13)
PROC: B2111ZZ Fluoroscopy of Multiple Coronary Arteries using Low Osmolar Contrast (ICD-10-PCS; 2016-12-13)
PROC: B2151ZZ Fluoroscopy of Left Heart using Low Osmolar Contrast (ICD-10-PCS; 2016-12-13)
PROC: 0DH63UZ Insertion of Feeding Device into Stomach, Percutaneous Approach (ICD-10-PCS; 2016-12-16)
PROC: 0B113F4 Bypass Trachea to Cutaneous with Tracheostomy Device, Percutaneous Approach (ICD-10-PCS; 2016-12-17)
PROC: 0BJ08ZZ Inspection of Tracheobronchial Tree, Via Natural or Artificial Opening Endoscopic (ICD-10-PCS; 2016-12-17)
PROC: 0DJD8ZZ Inspection of Lower Intestinal Tract, Via Natural or Artificial Opening Endoscopic (ICD-10-PCS; 2016-12-17)
PROC: 0BJ08ZZ Inspection of Tracheobronchial Tree, Via Natural or Artificial Opening Endoscopic (ICD-10-PCS; 2016-12-25)
DX: J96.02 Acute respiratory failure with hypercapnia (principal); I21.4 Non-ST elevation (NSTEMI) myocardial infarction; J18.9 Pneumonia, unspecified organism; N17.0 Acute kidney failure with tubular necrosis; G93.41 Metabolic encephalopathy; E87.2 Acidosis; I13.0 Hypertensive heart and chronic kidney disease with heart failure and stage 1 through stage 4 chronic kidney disease, or unspecified chronic kidney disease; I50.30 Unspecified diastolic (congestive) heart failure; I24.8 Other forms of acute ischemic heart disease; I25.110 Atherosclerotic heart disease of native coronary artery with unstable angina pectoris; E87.0 Hyperosmolality and hypernatremia; A04.7 Enterocolitis due to Clostridium difficile; D62 Acute posthemorrhagic anemia; K92.2 Gastrointestinal hemorrhage, unspecified; J96.01 Acute respiratory failure with hypoxia; I27.2 Other secondary pulmonary hypertension; I08.1 Rheumatic disorders of both mitral and tricuspid valves; E78.5 Hyperlipidemia, unspecified; E11.22 Type 2 diabetes mellitus with diabetic chronic kidney disease; N18.9 Chronic kidney disease, unspecified; E11.21 Type 2 diabetes mellitus with diabetic nephropathy; F31.9 Bipolar disorder, unspecified; F41.9 Anxiety disorder, unspecified; E87.6 Hypokalemia; J32.9 Chronic sinusitis, unspecified; D50.9 Iron deficiency anemia, unspecified; K64.8 Other hemorrhoids; K57.90 Diverticulosis of intestine, part unspecified, without perforation or abscess without bleeding; T45.525A Adverse effect of antithrombotic drugs, initial encounter; Z95.5 Presence of coronary angioplasty implant and graft; Z95.1 Presence of aortocoronary bypass graft; Z78.1 Physical restraint status; Z86.73 Personal history of transient ischemic attack (TIA), and cerebral infarction without residual deficits

== ENCOUNTER 2016-12-27 13:33 | Inpatient (IN) | payer OTHER ==
[~2016-12-27] VITALS: Ht 182.9 cm; Wt 109.1 kg
[~2016-12-27 13:33] MED LIST changes: +MELATONIN 3 MG1 TAB PO; +NITROSTAT0.4 MG SL; +TRAZODONE HCL300 MG PO
--- NOTE | 2016-12-27 14:00 | NUR ---
REPORT CALLED INTO [facility].
--- NOTE | 2016-12-27 14:07 | NUR ---
LOADING DOSE OF MORPHINE PER ORDRES AND MORPHINE CONT PUMP CONNCETED TO PT PER ORDRES. ST REMOVED PT FROM VENTILATOR AND ONTO A TRACH COLLAR.
--- NOTE | 2016-12-27 14:15 | NUR ---
PT ANXIOUS. PRN ATIVAN GIVEN.
--- NOTE | 2016-12-27 14:16 | NUR ---
HOSPICE NURSE AT PT BEDSIDE.
--- NOTE | 2016-12-27 14:29 | NUR ---
PT GIVEN PRN MORPHINE FOR AIRHUNGER.
--- NOTE | 2016-12-27 14:30 | NUR ---
PT DISCONNECTED FROM TRACHCOLLAR AND O2 ATTATCHED TO PT FOR TRANSFER. DISCONNECTED FROM MONITOR WHEN PT'S RESP BECAME SHALLOW AND WEAK. PT WHEELED BACK INTO ROOM AND FAMILY NOTIFIED TO COME TO BED SIDE. PT ATTACHED BACK TO TRACH COLLAR AND FAMILY AT BED SIDE. HOOKED BACK TO MONITOR AND PT WAS BRADYCARDIC.
--- NOTE | 2016-12-27 14:58 | NUR ---
FAMILY AT PT BEDSIDE. PT HEART RATE CONTINUES TO DECLINE AND RESPIRATION CONTINUE TO BECOME MORE SHALLOW. AT 1458, PT APNEIC AND SHOWS ASYSTOLE ON THE HEART MONITOR. HOSPICE NURSE NOTIFIED
--- NOTE | 2016-12-27 15:33 | NUR ---
HOSPICE CONFERENCE SERVICE COORDINATOR AT PT BED SIDE. CONFERENCE SERVICE COORDINATOR PRONOUCE PT AT 1515.
[2016-12-28 16:58] VITALS: Ht 182.9 cm; Wt 109.1 kg
== END 2016-12-27 15:15 | DRG 951 ==
LOC: D.ICU 13:33
PROVIDERS: ADMIT Legal Medicine
DX: Z51.5 Encounter for palliative care (principal)